=== PATIENT | female | born 1960 | race Caucasian/White ===

== ENCOUNTER 2019-05-10 09:22 | Emergency (ER) | payer OTHER, SELFPAY ==
[2019-05-10 09:36] VITALS: BP 125/101; PULSE 92; RESP 16; TEMP 37.2; O2SAT 99
[2019-05-10 09:38] VITALS: O2SAT 99
--- NOTE | 2019-05-10 09:56 | ED.GENADULT ---
HPI - General Adult General Chief complaint: Upper Respiratory Infection <Ambrose Bailey PA-C - Last Filed: 05/10/19 10:10> Stated complaint: swelling to right face <Ambrose Bailey PA-C - Last Filed: 05/10/19 10:10> Time Seen by Provider: 05/10/19 09:31 <JOSE DE JESUS Escobar Last Filed: 05/10/19 10:10> Source: patient <JOSE DE JESUS Escobar Last Filed: 05/10/19 10:10> Mode of arrival: ambulatory <Ambrose Bailey PA-C - Last Filed: 05/10/19 10:10> Limitations: no limitations <Ambrose Bailey PA-C - Last Filed: 05/10/19 10:10> History of Present Illness HPI narrative: Patient is a 59-year-old female who presents to emergency department for evaluation of right-sided facial swelling that began yesterday around the right patient notes she has had congestion rhinorrhea also had a right upper Come off to 1 of her molars that she pushed back into place. Patient denies any fever chills nausea vomiting dyspnea patient has not been seen for her complaint. <Ambrose Bailey PA-C - Last Filed: 05/10/19 10:10> Related Data Home medications: Home Medications Medication Instructions Recorded Confirmed oxybutynin chloride 10 mg 10 mg PO DAILY 02/08/19 tablet,extended release 24 hr <Ambrose Bailey PA-C - Last Filed: 05/10/19 10:10> Allergies/adverse reactions: Allergies Allergy/AdvReac Type Severity Reaction Status Date / Time amoxicillin Allergy Unknown Verified 11/09/18 17:21 tramadol Allergy Unknown Verified 11/09/18 17:21 <Ambrose Bailey PA-C - Last Filed: 05/10/19 10:10> Review of Systems Review of Systems: All systems reviewed & are unremarkable except as noted in HPI and below <Ambrose Bailey PA-C - Last Filed: 05/10/19 10:10> PMFSH Family History Family History: Family History Mother Hypertension Cerebrovascular accident Family history of anemia Family history of hyperthyroidism Mother Patient's mother is , Onset Age: 85 Father Patient's father is , Onset Age: 72 <Ambrose Bailey PA-C - Last Filed: 05/10/19 10:10> Social History Social History: Social History Smoking status: Never smoker Smoking end date: 03/09/99 Alcohol intake: current Gender identity (if verbalized by the patient): Female <Ambrose Bailey PA-C - Last Filed: 05/10/19 10:10> Exam Narrative: Exam Narrative: GENERAL: Well-appearing, well-nourished, and in no acute distress. HEAD: Normocephalic, atraumatic. Slight swelling around the right consistent with edema there is no erythema or other findings consistent with cellulitis EYES: PERRLA and EOMI. ENT: Nares clear, no rhinorrhea or epistaxis. Mucous membranes moist. CHEST: Clear to auscultation. No respiratory distress. No wheezes rales or rhonchi HEART: Regular rate and rhythm. No murmur heard. Normal peripheral pulses. ABDOMEN: Soft, nontender, nondistended EXTREMITIES: Normal range of motion. No edema. SKIN: Warm, dry, no rash. NEURO: No focal deficits. Alert and oriented x3. Cranial nerves II through XII grossly intact PSYCH: Normal mood and affect. <Ambrose Bailey PA-C - Last Filed: 05/10/19 10:10> Course Course Emergency Course: Patient in the room in no distress aware of case findings treatment plan and diagnosis agreeing to follow-up as directed <Ambrose Bailey PA-C - Last Filed: 05/10/19 10:10> Vital Signs Vital signs: Vital Signs Temperature 37.2 C 05/10/19 09:36 Pulse Rate 92 05/10/19 09:36 Respiratory Rate 16 05/10/19 09:36 Blood Pressure 125/101 H 05/10/19 09:36 Pulse Oximetry 99 05/10/19 09:36 Temperature 37.2 C 05/10/19 09:36 Pulse Rate 85 05/10/19 10:33 Respiratory Rate 16 05/10/19 10:33 Blood Pressure 121/98 H 05/10/19 10:33 Pulse Oximetry 99 0
[2019-05-10 10:33] VITALS: BP 121/98; PULSE 85; RESP 16; O2SAT 99
== END 2019-05-10 10:34 | disposition home or self-care (01) ==
PROVIDERS: Emergency Provider Emergency Medicine; PCP Emergency Medicine
DX: R22.0 Localized swelling, mass and lump, head (principal)
CPT/HCPCS: 99283

== ENCOUNTER 2019-07-14 07:51 | Outpatient (CLI) | payer OTHER, SELFPAY ==
--- NOTE | ~2019-07-14 | MM_ITS ---
EXAMINATION: MM screening memo BI w mat HISTORY: Screening mammogram TECHNIQUE: Craniocaudal and mediolateral oblique 3-D tomosynthesis images were obtained and synthetic 2-D images were generated. CAD analysis was submitted and interpreted. COMPARISON: Comparison to multiple prior studies sequentially, with oldest reviewed study dated 05/2011. BREAST PARENCHYMAL COMPOSITION: The breasts are heterogeneously dense, which may obscure small masses . FINDINGS: There is no evidence of suspicious mass, calcification, or architectural distortion to sugg est malignancy in either breast. There has been no suspicious interval change. IMPRESSION: 1. No mammographic evidence of malignancy. 2. Recommend routine screening mammography in one year. BI-RADS Category 1: Negative. Reviewed, dictated and finalized at location A.
== END 2019-07-14 07:52 | disposition home or self-care (01) ==
PROVIDERS: PCP Emergency Medicine; Visit Provider Nurse Practitioner Obstetrics & Gynecology
DX: Z12.31 Encounter for screening mammogram for malignant neoplasm of breast (principal)
CPT/HCPCS: 77063; 77067

== ENCOUNTER 2019-10-29 15:14 | Emergency (ER) | payer OTHER, SELFPAY ==
[2019-10-29 15:42] VITALS: BP 129/66; PULSE 74; RESP 18; TEMP 37.1; O2SAT 99
--- NOTE | 2019-10-29 16:04 | ED.ABDPAIN ---
HPI - Abdominal Pain General Chief Complaint: Abdominal Pain Stated Complaint: Stomach Pain Time Seen by Provider: 10/29/19 15:50 Source: patient and RN notes reviewed Mode of arrival: ambulatory Limitations: no limitations History of Present Illness HPI narrative: Patient presents today with a 2-day history of mid abdominal pain radiating up to the throat. Pain is worsened after eating, but decreases the longer the amount of time since she has last eaten. Normal bowel movement today. Occasional nausea with the pain, but denies vomiting or diarrhea. No fever or urinary symptoms. Patient has history of GERD in the past, but stopped taking Pepcid many years ago. She has started Pepcid again and states it has been helping with her symptoms for short periods of time. She currently rates her discomfort 1/10. Over the last 24 hours, patient has had several cups of coffee, corned beef hash, fried chicken, and other fried foods. She is also complaining of a 3-week history of right ear pain and ringing. Associated symptoms include postnasal drip and rhinorrhea. Denies cough, congestion. MD elicited complaint: abdominal pain Related Data Home Medications Medication Instructions Recorded Confirmed Iron 10/29/19 Probiotic 10/29/19 Allergies Allergy/AdvReac Type Severity Reaction Status Date / Time amoxicillin Allergy Unknown Verified 11/09/18 17:21 tramadol Allergy Unknown Verified 11/09/18 17:21 Review of Systems Review of Systems: Narrative: CONSTITUTIONAL: Denies body aches, fever, chills, or sweats. EYES: Denies visual changes, redness, or discharge. ENT: Denies congestion, sore throat. + Right ear pain and ringing, rhinorrhea, postnasal drip CARDIOVASCULAR: Denies chest pain, palpitations, or edema. RESPIRATORY: Denies cough or dyspnea. GASTROINTESTINAL: Denies vomiting, or diarrhea.+ Abdominal pain, nausea GENITOURINARY: Denies dysuria or hematuria. SKIN: Denies rash, itching, or wounds. MUSCULOSKELETAL: Denies back pain, joint pain, or myalgia. NEUROLOGIC: Denies headache, numbness, tingling, or weakness. PSYCH: Denies depression or anxiety. [facility] Past Medical History Medical History (Updated 10/29/19 @ 16:11 by Belkis Belcher, [employer], ) Cervical spondylosis Depression HLD (hyperlipidemia) Urinary incontinence Surgical History Surgical History (Updated 10/29/19 @ 16:11 by Belkis Belcher, [facility], ) History of cholecystectomy Social History Social History Smoking status: Never smoker Smoking end date: 03/09/99 Alcohol intake: current Gender identity (if verbalized by the patient): Female Comments At time of signature, I have reviewed and agree with nursing past medical, surgical, social and family history unless otherwise noted. Please see nursing chart for further information. There is no relevant family history pertinent to the presenting complaint Exam Narrative: Exam Narrative: GENERAL: Well-appearing, well-nourished, and in no acute distress. HEAD: Normocephalic, atraumatic. EYES: EOMI. No redness or drainage. Conjunctivae normal. ENT: Mucous membranes pink and moist. Nares clear. No rhinorrhea. TMs normal bilaterally. Small amount of fluid behind the right eardrum without indication of infection. Throat normal. Uvula midline. NECK: Normal AROM. Supple. No lymphadenopathy. CHEST: No respiratory distress. Clear to auscultation. HEART: Regular rate and rhythm. No murmur appreciated. Normal peripheral pulses. ABDOMEN: Soft, nontender, nondistended, normal active bowel sounds. -CVAT EXTREMITIES: Normal range of motion. No edema. SKIN: Warm, dry, no rash. Capillary refill normal. Normal skin turgor. NEURO: No focal deficits. Alert and oriented x3. Gait steady. PSYCH: Normal affect. No signs of depression or anxiety. Course Vital Signs Vital signs: Vital Signs Temperature 98.8 F 10/29/19 15:42 Pulse Rate 74
== END 2019-10-29 16:08 | disposition home or self-care (01) ==
PROVIDERS: Emergency Provider Nurse Practitioner; PCP Emergency Medicine
DX: K21.9 Gastro-esophageal reflux disease without esophagitis (principal); H69.91 Unspecified Eustachian tube disorder, right ear; M47.812 Spondylosis without myelopathy or radiculopathy, cervical region; E78.5 Hyperlipidemia, unspecified; F32.9 Major depressive disorder, single episode, unspecified
CPT/HCPCS: 99211; G0463

== ENCOUNTER 2020-08-31 09:25 | Outpatient (CLI) | payer OTHER, SELFPAY ==
--- NOTE | ~2020-08-31 | MM_ITS ---
EXAMINATION: MM screening memo BI w mat HISTORY: Screening mammogram TECHNIQUE: Craniocaudal and mediolateral oblique 3-D tomosynthesis images were obtained and synthetic 2-D images were generated. CAD analysis was submitted and interpreted. COMPARISON: 07/14/2019, 06/08/2018, 02/05/2016 bilateral digital screening mammogram examinations BREAST PARENCHYMAL COMPOSITION: The breasts are heterogeneously dense, which may obscure small masses . FINDINGS: There is no evidence of suspicious mass, calcification, or architectural distortion to sugg est malignancy in either breast. There has been no suspicious interval change. IMPRESSION: 1. No mammographic evidence of malignancy. 2. Recommend routine screening mammography in one year. BI-RADS Category 1: Negative Reviewed, dictated and finalized at location A.
== END 2020-08-31 09:26 | disposition home or self-care (01) ==
LOC: ANHIMG 09:29
PROVIDERS: PCP Emergency Medicine; Visit Provider Nurse Practitioner Obstetrics & Gynecology
DX: Z12.31 Encounter for screening mammogram for malignant neoplasm of breast (principal)
CPT/HCPCS: 77063; 77067

== ENCOUNTER 2021-03-13 15:37 | Outpatient (CLI) | payer OTHER, SELFPAY ==
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
== END 2021-03-13 15:38 | disposition home or self-care (01) ==
LOC: ANHIMG 15:45
PROVIDERS: PCP Emergency Medicine; Visit Provider Emergency Medicine
DX: M81.0 Age-related osteoporosis without current pathological fracture (principal); M47.896 Other spondylosis, lumbar region
CPT/HCPCS: 72100

== ENCOUNTER 2021-07-03 08:50 | Outpatient (CLI) | payer OTHER, SELFPAY ==
--- NOTE | ~2021-07-03 | DEXA_ITS ---
Bone Density Report Name: RAFFY TERAN Age: 61 Sex: Female Ethnicity: White Date of : 1960 Indication: postmenopausal; screening for osteoporosis; hysterectomy; Referring Provider: CORINNE BHATIA Study: Bone densitometry was performed. Exam Date: July 03, 2021 Accession number: [id number] Bone Density: Region BMD T-score Z-score Classification AP Spine(L1-L4) 1.035 -0.1 1.5 Normal Femoral Neck (Left) 0.558 -2.6 -1.2 Osteoporosis Total Hip (Left) 0.698 -2.0 -0.9 Osteopenia World Health Organization criteria for BMD impression classify patients as: Normal (T-score at or above -1.0), Osteopenia (T-score between -1.0 and -2.5), or Osteoporosis (T-score at or below -2.5). 10-year Fracture Risk: FRAX not reported because: Some T-score for Spine Total or Hip Total or Femoral Neck at or below -2.5 Clinical Information Provided by Patient: Has used the following medications: Calcium Has the following medical conditions: Hysterectomy Patient maximum height was 62 Menopause Age: 48 Drinks caffeinated beverages Onset of menses at age 12 Number of children 3 Impression: The patient has osteoporosis, based on the Left Femoral Neck T-score. Discussion: INCREASED RISK OF FRACTURE. BONE DENSITY IS UNDESIRABLY LOW AT ONE OR MORE SKELETAL SITES, CONSISTENT WITH POSTMENOPAUSAL OSTEOPOROSIS. This patient's lowest T-score meets the World Health Organization's (WHO) criteria for osteoporosis at one or more sites (T-score -2.5 or below). In untreated patients, the risk of osteoporotic fracture increases approximately two-fold for each 1.0 SD decrease in T-score. Low bone density is not the only risk factor for fracture; also consider factors such as patient's age, frailty or poor health, risk of falling, risk of injury, previous osteoporotic fracture, family history of osteoporosis, cigarette smoking, low body weight, etc. Not everyone with low bone mineral density has osteoporosis; osteomalacia and other metabolic bone disorders should also be considered. Patients who have osteoporosis should be evaluated for specific diseases and conditions (secondary causes) that may cause or contribute to bone loss. The [place] Association [employer] Clinical Endocrinologists (AACE) and National Osteoporosis Foundation (NOF) recommend pharmacologic intervention for all postmenopausal women whose T-score is in this range. The patient should follow a healthful lifestyle (good nutrition with adequate calcium and vitamin D, and appropriate weight-bearing exercise). Follow-Up: Consider a repeat BMD and Vertebral Fracture Assessment (VFA) exam in 2 years or sooner if medically necessary, to reassess this patient's status. Reported by: LAUREEN on 07/03/2021 11:39:00 AM. Reviewed, dictated and finalized at location ASuki CHAUDHARI
== END 2021-07-03 08:51 | disposition home or self-care (01) ==
LOC: ANHIMG 08:52
PROVIDERS: PCP Emergency Medicine; Visit Provider Emergency Medicine
DX: N95.1 Menopausal and female climacteric states (principal); M81.0 Age-related osteoporosis without current pathological fracture; M85.852 Other specified disorders of bone density and structure, left thigh
CPT/HCPCS: 77080

== ENCOUNTER 2021-08-27 13:26 | Outpatient (CLI) | payer OTHER, SELFPAY ==
--- NOTE | ~2021-08-27 | XR_ITS ---
EXAMINATION: XR chest 2V Exam Date/Time: 08/27/2021 13:35 CDT HISTORY: R05.8 - central chest pain and upper back pain, cough Comparison: X-ray chest 10/28/2018. RESULT: Lines, tubes, and devices: None. Lungs and pleura: Clear. Cardiomediastinal silhouette: Stable cardiomediastinal silhouette. Other: No acute osseous or upper abdominal finding. Right upper quadrant calcifications may represen t cholelithiasis or right nephrolithiasis. IMPRESSION: No acute cardiopulmonary process. Cholelithiasis versus right nephrolithiasis. Reviewed, dictated and finalized at location K.
== END 2021-08-27 13:27 | disposition home or self-care (01) ==
PROVIDERS: PCP Emergency Medicine; Visit Provider Emergency Medicine
DX: R05.8 Other specified cough (principal)
CPT/HCPCS: 71046

== ENCOUNTER → 2021-09-12 10:24 | Outpatient (CLI) | payer OTHER, SELFPAY ==
--- NOTE | ~2021-09-12 | US_ITS ---
US renal BI 09/12/2021 11:14 Procedure: Realtime transabdominal ultrasound of the kidneys and bladder. Indication: Renal stones Comparison: CT dated 02/27/2015 Findings: Right renal echotexture is normal without focal mass or hydronephrosis. No stones identifie d. In the right kidney there is a 3 x 2.2 x 1.9 cm oval hypoechoic mass without significant posterior acoustic enhancement. The right kidney measures 10.7 cm and left kidney measures 10.3 cm. Bladder w ithin normal limits. Impression: 1: Oval hypoechoic left renal mass measuring 3 cm. This is not compatible with a simple cyst. Correla tion with contrast-enhanced MRI recommended to exclude enhancement. Reviewed, dictated and finalized at location A. Impression: 1: Oval hypoechoic left renal mass measuring 3 cm. This is not compatible with a simple cyst. Correlation with contrast-enhanced MRI recommended to exclude en hancement.
== END ==
PROVIDERS: PCP Emergency Medicine; Visit Provider Emergency Medicine
DX: N20.0 Calculus of kidney (principal)
CPT/HCPCS: 76775

== ENCOUNTER → 2021-10-04 09:57 | Outpatient (CLI) | payer SELFPAY ==
--- NOTE | ~2021-10-04 | MR_ITS ---
EXAMINATION: MR abdomen wo/w con INDICATION: Kidney mass TECHNIQUE: Coronal SSFSE ARC, WATER:coronal LAVA-FLEX, Coronal 2D FIESTA FatSat, Axial SSFSE BH ARC, Axial 3D DualEcho BH, Axial SSFSE-IR, Axial DWI b=500, Axial 2D FIESTA FatSat, pre and postcontrast A xial LAVA ARC, postcontrast Coronal In and Opposed phase LAVA FLEX COMPARISON: Ultrasound, 09/13/2011 CONTRAST: None FINDINGS: The gallbladder is surgically absent. There is mild enlargement of the common bile duct and central intrahepatic ducts which is likely due to post cholecystectomy state. There is a 1.7 cm cyst of the liver. Pancreas divisum is noted. The spleen and adrenal glands are normal. Cysts of the kidn eys measure up to 4 mm on the right. No suspicious left kidney mass is identified. There are no patho logically enlarged abdominal lymph nodes. No dilated loops of bowel are evident. IMPRESSION: 1. No suspicious kidney mass identified. Reviewed, dictated and finalized at location L.
--- NOTE | ~2021-10-04 | MR_ITS ---
EXAMINATION: MR pelvis wo/w con INDICATION: Kidney mass TECHNIQUE: Coronal SSFSE ARC, WATER:coronal LAVA-FLEX, Coronal 2D FIESTA FatSat, Axial SSFSE BH ARC, Axial 3D DualEcho BH, Axial SSFSE-IR, Axial DWI b=500, Axial 2D FIESTA FatSat, postcontrast Axial LAV A ARC, postcontrast Coronal In and Opposed phase LAVA FLEX COMPARISON: 02/07/2015 CONTRAST: Multihance, 11 cc FINDINGS: There are no pathologically enlarged pelvic lymph nodes. No dilated loops of bowel are evid ent. There is no free fluid in the pelvis. Changes of left hip arthroplasty are noted. No abnormal en hancement is identified after contrast administration. There are changes of hysterectomy. IMPRESSION: 1. Unremarkable pelvic MRI. Reviewed, dictated and finalized at location L. IMPRESSION: 1. Unremarkable pelvic MRI.
[2021-10-10 11:11] LABS: Estimated Glomerular Filt Rate > 60
== END ==
PROVIDERS: PCP Emergency Medicine; Visit Provider Emergency Medicine
DX: N28.89 Other specified disorders of kidney and ureter (principal)
CPT/HCPCS: 36415; 72197; 74183; 82565; A9577

== ENCOUNTER 2021-10-23 14:46 | Outpatient (CLI) | payer OTHER, SELFPAY ==
--- NOTE | ~2021-10-23 | MM_ITS ---
EXAMINATION: MM screening memo BI w mat HISTORY: Screening mammogram TECHNIQUE: Craniocaudal and mediolateral oblique 3-D tomosynthesis images were obtained and synthetic 2-D images were generated. CAD analysis was submitted and interpreted. COMPARISON: 08/31/2020, 07/14/2019, 06/08/2018 bilateral screening mammogram examinations BREAST PARENCHYMAL COMPOSITION: The breasts are heterogeneously dense, which may obscure small masses . FINDINGS: There is no evidence of suspicious mass, calcification, or architectural distortion to sugg est malignancy in either breast. There has been no suspicious interval change. IMPRESSION: 1. No mammographic evidence of malignancy. 2. Recommend routine screening mammography in one year. BI-RADS Category 1: Negative Reviewed, dictated and finalized at location A.
== END 2021-10-23 14:47 | disposition home or self-care (01) ==
PROVIDERS: PCP Emergency Medicine; Visit Provider Nurse Practitioner
DX: Z12.31 Encounter for screening mammogram for malignant neoplasm of breast (principal)
CPT/HCPCS: 77063; 77067

== ENCOUNTER 2022-09-18 09:10 | Emergency (ER) | payer OTHER, SELFPAY ==
--- NOTE | 2022-09-18 09:11 | ED.URI ---
HPI - URI/Sore Throat General Chief Complaint: Upper Respiratory Infection Stated Complaint: Sore Throat/Cough/Fever Time Seen by Provider: 09/18/22 09:11 Source: patient Mode of arrival: ambulatory Limitations: no limitations History of Present Illness HPI Narrative: Patient is a 62-year-old female who presents with fever, sore throat, congestion and productive cough after visiting her friend's mother on Thursday. States her chest wall hurts when she coughs. Patient states every time she goes over there she gets sick. States she did have an episode of emesis last night. Reports she has seasonal allergies and has been taking benadryl. Patient states the the conditions are poor with mice infestation and the dogs have fleas. Also reports they smoke inside the house. Patient is tearful. Currently on Clindamycin for dental abscess, started on Thursday. Has also taken some OTC cold and sinus medication. Has not taken any ibuprofen or tylenol for pain or fever. Related Data Home Medications Medication Instructions Recorded Confirmed Iron See Rx Instructions .Route .COMPLEX 11/22/19 09/18/22 clindamycin HCl 300 mg capsule 300 mg DIRECTED 09/18/22 09/18/22 Allergies Allergy/AdvReac Type Severity Reaction Status Date / Time amoxicillin Allergy Unknown unknown Verified 04/02/22 15:48 tramadol Allergy Unknown unknown Verified 04/02/22 15:48 Review of Systems Review of Systems: All systems reviewed & are unremarkable except as noted in HPI and below Constitutional: Constitutional: Denies body ache(s), Reports fever(s), Denies headache(s), Denies malaise and Denies weakness Eyes: Eyes: Denies loss of vision ENT: Denies otalgia, Denies headache(s), Reports nasal congestion, Denies sinus pain and Reports sore throat Cardiovascular: Cardiovascular: Denies chest pain, Denies irregular heart rhythm and Denies dyspnea Respiratory: Respiratory: Reports cough and Denies dyspnea Gastrointestinal: Gastrointestinal: Denies abdominal pain, Denies melena, Denies hematochezia, Denies diarrhea, Denies nausea and Denies vomiting Musculoskeletal: Musculoskeletal: Denies back pain, Denies myalgias and Denies arthralgias Integumentary/Breasts: Skin/Breast: Denies pruritus and Denies rash Neurologic: Denies headache(s), Denies loss of vision and Denies weakness Psychiatric: Psychiatric: Reports no additional psychiatric complaints PMFSH Past Medical History Medical History Cervical spondylosis Depression HLD (hyperlipidemia) Urinary incontinence Surgical History Surgical History History of cholecystectomy Family History Family History Mother Hypertension Cerebrovascular accident Family history of anemia Family history of hyperthyroidism Mother Patient's mother is , Onset Age: 85 Father Patient's father is , Onset Age: 72 Social History Social History Smoking status: Never smoker Smoking end date: 03/09/99 Alcohol intake: current Gender identity (if verbalized by the patient): Female Comments At time of signature, agree with nursing past medical, surgical, social and family history. There is no relevant family history pertinent to the presenting complaint. Exam Const: General: cooperative, healthy appearing, comfortable, no acute distress and well nourished Nutritional Appearance: well nourished Orientation/consciousness: patient oriented x3 Limitations: no limitations HENMT: Head: normal to inspection, normocephalic and atraumatic Ears: hearing grossly normal bilaterally, external ears normal, TM's normal bilaterally and EAC's normal Face/Nose/Sinus: Normal external nose present, Normal nares present, Normal nasal mucous membranes and turbinates present
[2022-09-18 09:30] VITALS: BP 162/89; PULSE 84; RESP 16; TEMP 36.7; O2SAT 100
== END 2022-09-18 10:04 | disposition home or self-care (01) ==
PROVIDERS: Emergency Provider Nurse Practitioner Family; PCP Emergency Medicine
DX: J02.0 Streptococcal pharyngitis (principal); Z20.822 Contact with and (suspected) exposure to COVID-19; Z87.891 Personal history of nicotine dependence; E78.5 Hyperlipidemia, unspecified
CPT/HCPCS: 87426; 87804; 87880; 99213; C9803; G0463

== ENCOUNTER 2022-09-26 09:17 | Emergency (ER) | payer OTHER, SELFPAY ==
[2022-09-26 09:33] VITALS: BP 150/96; PULSE 85; RESP 14; TEMP 36.5; O2SAT 99
--- NOTE | 2022-09-26 09:54 | ED.URI ---
HPI - URI/Sore Throat General Chief Complaint: Upper Respiratory Infection Stated Complaint: Sore Throat/Cough Time Seen by Provider: 09/26/22 09:38 Source: patient, RN notes reviewed and old records reviewed Mode of arrival: ambulatory Limitations: no limitations History of Present Illness HPI Narrative: Patient presents today complaining of nausea, cough, hoarse voice, sore throat, fatigue, occasional shortness of breath. She was seen at [facility] on 09/18/2022, diagnosed with strep throat and placed on clindamycin. At that time she was already on a 7 day course of clindamycin for dental issue, so her prescription was extended for 3 days to equal a full 10 day course. Patient states her symptoms had improved, but worsened again when she was off the medication. She has been using albuterol inhaler, Benadryl, cough medicine with mild relief and currently rates her pain 2/10. Denies history of asthma or COPD. Related Data Home Medications Medication Instructions Recorded Confirmed Iron See Rx Instructions .Route .COMPLEX 11/22/19 09/26/22 Allergies Allergy/AdvReac Type Severity Reaction Status Date / Time amoxicillin Allergy Mild Itching Verified 09/26/22 09:54 tramadol Allergy Unknown unknown Verified 04/02/22 15:48 Review of Systems Review of Systems: CONSTITUTIONAL: Denies body aches, fever, chills, or sweats.+ fatigue EYES: Denies visual changes, redness, or discharge. ENT: Denies rhinorrhea, congestion, or otalgia.+ course, sore throat CARDIOVASCULAR: Denies chest pain, palpitations, or edema. RESPIRATORY: + cough, occasional shortness of breath GASTROINTESTINAL: Denies abdominal pain, vomiting, or diarrhea.+ nausea GENITOURINARY: Denies dysuria or hematuria. SKIN: Denies rash, itching, or wounds. MUSCULOSKELETAL: Denies back pain, joint pain, or myalgia. NEUROLOGIC: Denies headache, numbness, tingling, or weakness. PSYCH: Denies depression or anxiety. [facility] Past Medical History Medical History Cervical spondylosis Depression HLD (hyperlipidemia) Urinary incontinence Surgical History Surgical History History of cholecystectomy Family History Family History Mother Hypertension Cerebrovascular accident Family history of anemia Family history of hyperthyroidism Mother Patient's mother is , Onset Age: 85 Father Patient's father is , Onset Age: 72 Social History Social History Smoking status: Never smoker Smoking end date: 03/09/99 Alcohol intake: current Gender identity (if verbalized by the patient): Female Comments At time of signature, I have reviewed and agree with nursing past medical, surgical, social and family history unless otherwise noted. Please see nursing chart for further information. There is no relevant family history pertinent to the presenting complaint Exam Narrative: GENERAL: Well-appearing, well-nourished, and in no acute distress. HEAD: Normocephalic, atraumatic. EYES: EOMI. No redness or drainage. Conjunctivae normal. ENT: Mucous membranes pink and moist. Nares clear. No rhinorrhea. TMs normal bilaterally. Throat normal. Uvula midline. NECK: Normal AROM. Supple. Left anterior cervical chain lymphadenopathy. CHEST: No respiratory distress. Clear to auscultation. HEART: Regular rate and rhythm. No murmur appreciated. Normal peripheral pulses. EXTREMITIES: Normal range of motion. No edema. SKIN: Warm, dry, no rash. Capillary refill normal. Normal skin turgor. NEURO: No focal deficits. Alert and oriented x3. Gait steady. PSYCH: Normal affect. No signs of depression or anxiety. Course Course Level of Care: Express Care Visit Vital Signs Vital signs: Vital
== END 2022-09-26 10:15 | disposition home or self-care (01) ==
PROVIDERS: Emergency Provider Nurse Practitioner
DX: J02.0 Streptococcal pharyngitis (principal); E78.5 Hyperlipidemia, unspecified; M47.812 Spondylosis without myelopathy or radiculopathy, cervical region
CPT/HCPCS: 87880; 99213; G0463

== ENCOUNTER 2022-10-24 11:11 | Outpatient (CLI) | payer OTHER, SELFPAY ==
--- NOTE | ~2022-10-24 | XR_ITS ---
EXAMINATION: XR lumbar spine 2-3V DATE: 10/24/2022 11:43 INDICATION: Low back pain TECHNIQUE: Anteroposterior and lateral views of the lumbar spine, and cone-down lateral view of the l umbosacral junction were obtained. COMPARISON: 03/13/2021 FINDINGS: Bone alignment is normal. There is no fracture. The vertebral body heights are maintained. There is moderate loss of intervertebral disc space height at T12-L1, L3-4, and L5-S1. There is moder ate to severe loss of intervertebral disc space height at L2-3. Small degenerative osteophytes projec t from the anterior endplates of multiple vertebral bodies. There is moderate facet joint osteoarthri tis of the lower lumbar spine. There are partially imaged changes of right total hip arthroplasty. IMPRESSION: 1. Moderate lumbar spondylosis without acute findings or significant interval change. Reviewed, dictated and finalized at location B. IMPRESSION: 1. Moderate lumbar spondylosis without acute findings or significant interval c christopher.
--- NOTE | ~2022-10-24 | XR_ITS ---
EXAMINATION: XR hip RT min 2V DATE: 10/24/2022 11:43 INDICATION: Right hip pain TECHNIQUE: Two views of right hip were obtained. COMPARISON: 11/04/2016 FINDINGS: There are changes of interval right total hip arthroplasty. Alignment is normal. There is n o fracture. There are phleboliths of the pelvis. IMPRESSION: 1. Changes of interval right total hip arthroplasty without acute osseous abnormality. Reviewed, dictated and finalized at location B. IMPRESSION: 1. Changes of interval right total hip arthroplasty without acute osseous abnor mality.
== END 2022-10-24 11:12 | disposition home or self-care (01) ==
PROVIDERS: PCP Emergency Medicine; Visit Provider Emergency Medicine
DX: M25.551 Pain in right hip (principal); M47.896 Other spondylosis, lumbar region
CPT/HCPCS: 72100; 73502

== ENCOUNTER 2023-01-07 11:19 | Emergency (ER) | payer OTHER, SELFPAY ==
[2023-01-07 11:23] VITALS: BP 138/70; PULSE 60; RESP 18; TEMP 36.7; O2SAT 100
[2023-01-07] MEDS: KETOROLAC (*BKC) 60 MG/2 ML VIAL IM (12:27)
[2023-01-07] MEDS: ONDANSETRON HCL ODT 4 MG TABLET PO (12:27)
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
[2023-01-07 13:13] VITALS: BP 145/84; PULSE 65; RESP 18; O2SAT 100
== END 2023-01-07 13:37 | disposition home or self-care (01) ==
PROVIDERS: Emergency Provider Emergency Medicine; PCP Emergency Medicine
DX: S06.0X0A Concussion without loss of consciousness, initial encounter (principal); S16.1XXA Strain of muscle, fascia and tendon at neck level, initial encounter; E78.5 Hyperlipidemia, unspecified; M47.812 Spondylosis without myelopathy or radiculopathy, cervical region; R32 Unspecified urinary incontinence; Z96.641 Presence of right artificial hip joint; Z90.49 Acquired absence of other specified parts of digestive tract; W20.8XXA Other cause of strike by thrown, projected or falling object, initial encounter
CPT/HCPCS: 96372; 99283; A9270; J1885

== ENCOUNTER 2023-06-04 09:00 | Outpatient (CLI) | payer OTHER, SELFPAY ==
--- NOTE | ~2023-06-04 | MM_ITS ---
EXAMINATION: MM screening memo BI w mat HISTORY: Screening mammogram TECHNIQUE: Craniocaudal and mediolateral oblique 3-D tomosynthesis images were obtained and synthetic 2-D images were generated. CAD analysis was submitted and interpreted. COMPARISON: 10/23/2021, 08/31/2020 bilateral screening mammogram examinations BREAST PARENCHYMAL COMPOSITION: The breasts are heterogeneously dense, which may obscure small masses . FINDINGS: There is no evidence of suspicious mass, calcification, or architectural distortion to sugg est malignancy in either breast. There has been no suspicious interval change. IMPRESSION: 1. No mammographic evidence of malignancy. 2. Recommend routine screening mammography in one year. BI-RADS Category 1: Negative Reviewed, dictated and finalized at location A.
== END 2023-06-04 09:01 | disposition home or self-care (01) ==
PROVIDERS: PCP Emergency Medicine; Visit Provider Nurse Practitioner
DX: Z12.31 Encounter for screening mammogram for malignant neoplasm of breast (principal)
CPT/HCPCS: 77063; 77067

== ENCOUNTER 2023-06-14 08:32 | Outpatient (CLI) | payer OTHER, SELFPAY ==
--- NOTE | ~2023-06-14 | MR_ITS ---
MRI of the lumbar spine Clinical History: Back pain Technique: Axial T2-weighted images, and sagittal T1-weighted, T2-weighted, and and T2 fat-sat images were acquired. Findings: There is no fracture or subluxation of the lumbar spine. Vertebral bodies maintain normal a lignment. No suspicious bone marrow signal abnormality seen. There are Schmorl's nodes about the T12- L1 disc space. There is intraosseous hemangioma of L3. At L1-L2, there is minimal disc bulge and mild facet arthropathy. No central canal stenosis. There is mild bilateral neural foraminal narrowing. At L2-L3, there is moderate to advanced degenerative disc narrowing. There is disc bulge and moderate facet arthropathy, with minimal central canal stenosis. There is mild right neural foraminal narrowi ng. Left neural foramen preserved. At L3-L4, there is mild degenerative disc narrowing. Disc bulge and facet arthropathy result in mild central canal stenosis. There is minimal bilateral neural foraminal narrowing. At L4-L5, disc bulge and severe facet arthropathy result in severe spinal canal stenosis/thecal sac c ompression. There is moderate to severe left neural foraminal narrowing, and minimal right neural for aminal narrowing. At L5-S1, there is minimal disc bulge with severe facet arthropathy. No central canal stenosis. Neura l foramina are preserved. Paravertebral soft tissues are unremarkable. Impression: Severe degenerative spondylosis at L4-L5, as detailed above. Moderate degenerative change otherwise, as above. Reviewed, dictated and finalized at [facility]. Impression: Severe degenerative spondylosis at L4-L5, as detailed above. Moderate degenerative change otherwise, as above.
== END 2023-06-14 08:33 | disposition home or self-care (01) ==
PROVIDERS: PCP Emergency Medicine; Visit Provider Emergency Medicine
DX: M47.896 Other spondylosis, lumbar region (principal)
CPT/HCPCS: 72148

== ENCOUNTER 2023-07-01 10:47 | Emergency (ER) | payer OTHER, SELFPAY ==
--- NOTE | ~2023-07-01 | XR_ITS ---
EXAMINATION: XR chest 2V 07/01/2023 11:25 INDICATION: Chest pain and weakness PROCEDURE: 2 view chest COMPARISON: 08/27/2021 FINDINGS: The lungs are clear. The cardiomediastinal silhouette is within normal limits. There are no pleural effusions. There is no pneumothorax suspected. IMPRESSION: 1: NO ACUTE CARDIOPULMONARY DISEASE. Reviewed, dictated and finalized at location B.
--- NOTE | 2023-07-01 10:48 | ECG_ITS ---
SEE SCANNED COPY FOR CONFIRMED REPORT MTDD
[2023-07-01 11:16] LABS: Basophils Percent Auto 0.7 % (0.2-1.2); Eosinophils Absolute Auto 0.2 K/mm3 (0-0.3); Eosinophils Percent Auto 2.6 % (0-4.4); Hematocrit 41.1 % (37.0-47.0); Hemoglobin 13.2 g/dL (12.0-15.0); Immature Granulocyte Absolute 0.02 K/mm3 (0.00-0.031); Immature Granulocyte Percent A 0.3 % (0-0.5); Lymphocytes Absolute Auto 1.99 K/mm3 (0.9-3.2); Lymphocytes Percent Auto 33.8 % (18.3-44.2); Mean Corpuscular HGB Conc 32.1 g/dl (32-36); Mean Corpuscular Hemoglobin 30.2 pg (26-34); Mean Corpuscular Volume 94.1 fl (80-100); Mean Platelet Volume 9.7 fl (7.4-10.4); Monocytes Absolute Auto 0.5 K/mm3 (0.1-0.6); Monocytes Percent Auto 8.2 % (2.6-8.5); Neutrophils Absolute Auto 3.2 K/mm3 (1.3-6.7); Neutrophils Percent Auto 54.4 % (45.5-73.1); Platelet Count Result 353 k/mm3 (150-375); Red Blood Count 4.37 M/mm3 (4.2-5.4); Red Cell Distribution Width 12.6 % (11.5-14.5); White Blood Count 5.9 K/mm3 (4.5-10.0)
[2023-07-01 11:22] LABS: Partial Thromboplastin Time 25.4 Seconds (22.3-36.8)
[2023-07-01 11:31] LABS: Alanine Aminotransferase 23 U/L (6-35); Alkaline Phosphatase 88 U/L (38-126); Anion Gap 9 mmol/L (4-12); Aspartate Amino Transferase 29 U/L (14-36); Bilirubin,Total 0.5 mg/dL (0.2-1.3); Blood Urea Nitrogen 17 mg/dL (7-17); Calcium 11.5 mg/dL (8.4-10.2); Carbon Dioxide 22 mmol/L (22-30); Chloride 108 mmol/L (98-107); Estimated CRCL calculation 74 ml/min; Estimated Glomerular Filt Rate > 60; Glucose 112 mg/dL (65-110); Lipase 125 U/L (23-300); Sodium 139 mmol/L (137-145)
[2023-07-01 11:42] LABS: Troponin I < 0.012 ng/mL (0.000-0.034)
[2023-07-01 14:39] VITALS: BP 134/71; PULSE 74; RESP 16; O2SAT 100
--- NOTE | 2023-07-01 14:58 | ED.CHESTPAIN ---
HPI - Chest Pain General Chief Complaint: Chest Pain Stated Complaint: cp Time Seen by Provider: 07/01/23 14:58 History of Present Illness HPI narrative: This is a 63-year-old female with PMH of HLD, GERD, anxiety, depression presents to the ED with chief complaint of left-sided chest pain for the past couple of days. Patient reports that she had a fall 2 weeks ago in which she injured her upper back and left shoulder. Patient states that the pain primarily was located in between the shoulder blades and is worse with certain movements and positions. States the pain started to radiate from the shoulder into the chest for the past couple of days. Today she states she had an episode where she became sweaty and dizzy and shaky. Denies syncope, vomiting, nausea, fevers, chills, cough, dyspnea. Denies any exertional component to the pain. States the pain is specifically worse when she moves her left shoulder. Patient states she deals with chronic pain and no pain medications that she can take home helps with her pain. States she follows with pain management and has an appointment tomorrow. Denies any cardiac history. Denies history of blood clot. Denies recent immobilization or hospitalization. Denies leg swelling. Related Data Home Medications Medication Instructions Recorded Confirmed Iron See Rx Instructions .Route .COMPLEX 11/22/19 06/10/23 Allergies Allergy/AdvReac Type Severity Reaction Status Date / Time amoxicillin Allergy Mild Itching Verified 07/01/23 15:41 tramadol Allergy Unknown unknown Verified 07/01/23 15:41 Review of Systems Review of Systems: All systems as dictated in HPI [facility] Past Medical History Medical History Cervical spondylosis Depression HLD (hyperlipidemia) Urinary incontinence Surgical History Surgical History History of cholecystectomy History of right hip replacement Family History Family History Mother Hypertension Cerebrovascular accident Family history of anemia Family history of hyperthyroidism Mother Patient's mother is , Onset Age: 85 Father Patient's father is , Onset Age: 72 Social History Social History Smoking status: Never smoker Smoking end date: 03/09/99 Alcohol intake: current Do You Feel Safe in your Home?: Yes Lack of Transportation: No Lack of Food: Never True Current Housing: I Have Housing Concerned About Future Housing: No Difficulty Paying Gas/Electric Bills: No Difficulty Paying for Meds: No Currently Unemployed: No Education: High School Diploma/GED Difficulty w/ Childcare or Family Care: No Gender identity (if verbalized by the patient): Female Exam Narrative: GENERAL: Well-appearing, well-nourished, and in no acute distress. HEAD: Normocephalic, atraumatic. EYES: PERRLA and EOMI. ENT: Nares clear, no rhinorrhea or epistaxis. Mucous membranes moist. Oropharynx without tonsillar hypertrophy exudate or other lesions. NECK: Supple. No adenopathy or masses. CHEST: No respiratory distress. Clear to auscultation. No wheezes rales or rhonchi. Tender to palpation to the left chest in the pectoral distribution towards left shoulder. Chest pain is recreated with range of motion of the left shoulder. HEART: Regular rate and rhythm. No murmur heard. Normal peripheral pulses. ABDOMEN: Soft, nontender, nondistended, normal active bowel sounds. MSK: Normal range of motion. No edema. SKIN: Warm, dry, no rash. NEURO: Alert and oriented x3. No focal deficits. PSYCH: Normal mood and affect. Course Vital Signs Vital signs: Vital Signs Pulse Rate 74 07/01/23 14:39 Respiratory Rate 16 07/01/23 14:39 Blood Pressure 134/71 07/01/23 14:39 Pu
[2023-07-01 15:31] LABS: Troponin I 0.014 ng/mL (0.000-0.034)
[2023-07-01] MEDS: KETOROLAC 15 MG/ML VIAL (*BKC) IV PUSH (15:48)
[2023-07-01 16:02] VITALS: BP 155/84; PULSE 77; RESP 20; O2SAT 96
== END 2023-07-01 16:03 | disposition home or self-care (01) ==
PROVIDERS: Student in an Organized Health Care Education/Training Program; Emergency Provider Physician Assistant; PCP Emergency Medicine
DX: S29.011A Strain of muscle and tendon of front wall of thorax, initial encounter (principal); E78.5 Hyperlipidemia, unspecified; K21.9 Gastro-esophageal reflux disease without esophagitis; R32 Unspecified urinary incontinence; Z90.49 Acquired absence of other specified parts of digestive tract; Z96.641 Presence of right artificial hip joint; W19.XXXA Unspecified fall, initial encounter
CPT/HCPCS: 36415; 71046; 80053; 83690; 84484; 85025; 85610; 85730; 93005; 96374; 99284; J1885

== ENCOUNTER 2023-10-16 15:14 | Emergency (ER) | payer OTHER, SELFPAY ==
--- NOTE | 2023-10-16 15:24 | ED.URI ---
HPI - URI/Sore Throat General Chief Complaint: Upper Respiratory Infection Stated Complaint: Sore Throat Time Seen by Provider: 10/16/23 15:24 Source: patient, RN notes reviewed and old records reviewed Mode of arrival: ambulatory Limitations: no limitations History of Present Illness HPI Narrative: 63-year-old female presents to the [facility] with an irritated throat since Thursday, 3 days. Patient has not taken anything to help her symptoms. States that she traveled to a friend's house over the weekend and they smoked cigarettes indoors. Onset (ago): day(s) (3) Treatments prior to arrival: none Related Data Home Medications Medication Instructions Recorded Confirmed methocarbamol 750 mg tablet 750 mg PO DAILY 10/16/23 10/16/23 Allergies Allergy/AdvReac Type Severity Reaction Status Date / Time amoxicillin Allergy Mild Itching Verified 10/16/23 15:22 tramadol Allergy Mild Itching Verified 10/16/23 15:22 Review of Systems Review of Systems: All systems reviewed & are unremarkable except as noted in HPI and below Constitutional: Constitutional: Reports no additional constitutional complaints Eyes: Eyes: Reports no additional eye complaints ENT: Reports as per HPI Cardiovascular: Cardiovascular: Reports no additional cardiovascular complaints, Denies chest pain and Denies dyspnea Respiratory: Respiratory: Reports no additional respiratory complaints, Denies chest congestion, Denies cough and Denies dyspnea Gastrointestinal: Gastrointestinal: Reports no additional gastrointestinal complaints, Denies abdominal pain, Denies nausea and Denies vomiting Musculoskeletal: Musculoskeletal: Reports no additional musculoskeletal complaints Integumentary/Breasts: Skin/Breast: Reports system reviewed and no additional complaints, except as docu Neurologic: Reports system reviewed and no additional complaints, except as documented Psychiatric: Psychiatric: Reports no additional psychiatric complaints Allergic/Immunologic: Allergic/Immunologic: Reports no additional allergic/immunologic complaints [facility] Past Medical History Medical History Cervical spondylosis Chronic sinusitis Depression HLD (hyperlipidemia) Sinus congestion Urinary incontinence Surgical History Surgical History History of cholecystectomy History of right hip replacement Family History Family History Mother Hypertension Cerebrovascular accident Family history of anemia Family history of hyperthyroidism Mother Patient's mother is , Onset Age: 85 Father Patient's father is , Onset Age: 72 Social History Social History Smoking status: Never smoker Smoking end date: 03/09/99 Alcohol intake: current Do You Feel Safe in your Home?: Yes Lack of Transportation: No Lack of Food: Never True Current Housing: I Have Housing Concerned About Future Housing: No Difficulty Paying Gas/Electric Bills: No Difficulty Paying for Meds: No Currently Unemployed: No Education: High School Diploma/GED Difficulty w/ Childcare or Family Care: No Gender identity (if verbalized by the patient): Female Comments At the time of my signature, I reviewed and agree with the nursing past medical, surgical, social, and family history. There is no relevant family history pertinent to the patient complaint. Exam Const: General: cooperative, healthy appearing, comfortable, no acute distress, well developed, alert and well nourished Nutritional Appearance: well nourished Orientation/consciousness: patient oriented x3 Limitations: no limitations HENMT: Head: normal to inspection Ears: hearing grossly normal bilaterally, external ears normal, TM's normal bilaterally, EAC's normal, mas
[2023-10-16 15:25] VITALS: BP 102/68; PULSE 85; RESP 16; TEMP 37.1; O2SAT 98
[2023-10-16 15:54] LABS: EDSTREPNEGPOS1 Presumptive Negative
== END 2023-10-16 15:46 | disposition home or self-care (01) ==
PROVIDERS: Emergency Provider Nurse Practitioner; PCP Emergency Medicine
DX: J02.9 Acute pharyngitis, unspecified (principal); Z87.891 Personal history of nicotine dependence; E78.5 Hyperlipidemia, unspecified
CPT/HCPCS: 87081; 87880; 99213; G0463

== ENCOUNTER 2023-11-08 13:25 | Emergency (ER) | payer OTHER, SELFPAY ==
--- NOTE | ~2023-11-08 | XR_ITS ---
EXAMINATION: XR chest 2V DATE: 11/08/2023 14:09 INDICATION: Chest pain, shortness of breath and cough TECHNIQUE: PA and lateral views of the chest were obtained. COMPARISON: Chest radiograph dated 07/01/2023 FINDINGS: The lungs remain clear with no focal airspace opacities, pulmonary edema, pleural effusion or pneumot horax. The cardiomediastinal silhouette is normal. Mild thoracic spondylosis with chronic minimal ant erior wedging of a midthoracic vertebral body. IMPRESSION: 1. No acute cardiopulmonary disease. Reviewed, dictated and finalized at location A.
--- NOTE | 2023-11-08 13:27 | ECG_ITS ---
Test Date: 2023-11-08 13:31:34 Measurements Intervals [place] Rate: 81 P: 151 [place]: 123 QRS: 13 QRSD: 101 T: 150 QT: 346 QTc: 402 Interpretive Statements ECTOPIC ATRIAL RHYTHM POSSIBLE LEFT ATRIAL ENLARGEMENT DELAYED PRECORDIAL R/S TRANSITION CONSIDER INFERIOR INFARCT, AGE INDETERMINATE BORDERLINE T WAVE ABNORMALITY- HIGH LATERAL LEADS BASELINE ARTIFACT- I, III, AVR, AVL, AVF, V1 ABNORMAL ECG No previous ECG available for comparison Electronically Signed On 11-08-2023 14:34:03 CDT by Guzman Kam D.O.
[2023-11-08 13:40] VITALS: BP 151/76; PULSE 86; RESP 16; TEMP 36.6; O2SAT 98
[2023-11-08 13:47] LABS: Basophils Absolute Auto 0.1 K/mm3 (0.0-0.1); Basophils Percent Auto 0.8 % (0.2-1.2); Eosinophils Percent Auto 0.6 % (0-4.4); Hematocrit 40.3 % (37.0-47.0); Hemoglobin 13.5 g/dL (12.0-15.0); Immature Granulocyte Absolute 0.02 K/mm3 (0.00-0.031); Immature Granulocyte Percent A 0.3 % (0-0.5); Lymphocytes Absolute Auto 1.59 K/mm3 (0.9-3.2); Lymphocytes Percent Auto 24.3 % (18.3-44.2); Mean Corpuscular HGB Conc 33.5 g/dl (32-36); Mean Corpuscular Hemoglobin 31.2 pg (26-34); Mean Corpuscular Volume 93.1 fl (80-100); Mean Platelet Volume 9.1 fl (7.4-10.4); Monocytes Absolute Auto 0.5 K/mm3 (0.1-0.6); Monocytes Percent Auto 8.1 % (2.6-8.5); Neutrophils Absolute Auto 4.3 K/mm3 (1.3-6.7); Neutrophils Percent Auto 65.9 % (45.5-73.1); Platelet Count Result 345 k/mm3 (150-375); Red Blood Count 4.33 M/mm3 (4.2-5.4); Red Cell Distribution Width 12.7 % (11.5-14.5); White Blood Count 6.6 K/mm3 (4.5-10.0)
[2023-11-08 13:56] LABS: Prothrombin Time 13.5 Seconds (11.1-14.7)
[2023-11-08 13:57] LABS: Partial Thromboplastin Time 26.1 Seconds (22.3-36.8)
[2023-11-08 13:59] LABS: Alanine Aminotransferase 18 U/L (6-35); Albumin Level 4.7 g/dL (3.5-5.1); Alkaline Phosphatase 89 U/L (38-126); Anion Gap 10 mmol/L (4-12); Aspartate Amino Transferase 23 U/L (14-36); Bilirubin,Total 0.4 mg/dL (0.2-1.3); Blood Urea Nitrogen 16 mg/dL (7-17); Calcium 11.6 mg/dL (8.4-10.2); Carbon Dioxide 26 mmol/L (22-30); Chloride 102 mmol/L (98-107); Estimated Glomerular Filt Rate > 60; Glucose 128 mg/dL (65-110); Lipase 146 U/L (23-300); Potassium 3.8 mmol/L (3.4-5.0); Sodium 138 mmol/L (137-145)
[2023-11-08 14:11] LABS: Troponin I < 0.012 ng/mL (0.000-0.034)
[2023-11-08 15:12] VITALS: O2SAT 98
[2023-11-08 15:15] VITALS: BP 146/107; PULSE 66; PULSE 68; RESP 13; O2SAT 97
[2023-11-08] MEDS: ASPIRIN 81 MG CHEWABLE TABLET 324 MG PO (15:16)
--- NOTE | 2023-11-08 16:22 | ED.CHESTPAIN ---
HPI - Chest Pain General Chief Complaint: Chest Pain Stated Complaint: chest pain, SOB Time Seen by Provider: 11/08/23 15:59 History of Present Illness HPI narrative: Patient is a 63-year-old female who presents to the emergency department this afternoon complaining of chest pain and feeling sick since October 15. Patient states that she has been having a sore throat, cough, and these chest pain for the past few weeks. Her primary care physician prescribed her 2 doses of antibiotics including a Z-Mikel which she has finished but states that her symptoms are not improving. Denies any nausea, vomiting, or abdominal pain, denies any ear pain or fevers or chills. Denies any history of cardiovascular disease. No additional symptoms or concerns at this time. Related Data Home Medications Medication Instructions Recorded Confirmed methocarbamol 750 mg tablet 750 mg PO DAILY 10/16/23 10/30/23 Allergies Allergy/AdvReac Type Severity Reaction Status Date / Time amoxicillin Allergy Mild Itching Verified 11/08/23 15:14 tramadol Allergy Mild Itching Verified 11/08/23 15:14 Review of Systems Review of Systems: All systems are reviewed and are negative unless stated otherwise in the HPI. [facility] Past Medical History Medical History Cervical spondylosis Chronic sinusitis Depression HLD (hyperlipidemia) Sinus congestion Urinary incontinence Surgical History Surgical History History of cholecystectomy History of right hip replacement Family History Family History Mother Hypertension Cerebrovascular accident Family history of anemia Family history of hyperthyroidism Mother Patient's mother is , Onset Age: 85 Father Patient's father is , Onset Age: 72 Social History Social History Smoking status: Never smoker Smoking end date: 03/09/99 Alcohol intake: current Do You Feel Safe in your Home?: Yes Lack of Transportation: No Lack of Food: Never True Current Housing: I Have Housing Concerned About Future Housing: No Difficulty Paying Gas/Electric Bills: No Difficulty Paying for Meds: No Currently Unemployed: No Education: High School Diploma/GED Difficulty w/ Childcare or Family Care: No Gender identity (if verbalized by the patient): Female Exam Narrative: General: Alert, awake, afebrile, in no acute distress. HEENT: PERRL, no rhinorrhea, no post nasal drip, oropharynx clear, clear bilateral tympanic membranes. Cardiovascular: Regular rate and rhythm, no murmurs, rubs or gallops, no peripheral edema. Respiratory: Clear to auscultation bilaterally, no tachypnea, no wheezing, no rhonchi, no rubs, no respiratory distress. Abdomen: Soft, nontender, nondistended, no rebound, no guarding, no peritoneal signs. Musculoskeletal: No joint swelling or deformity, normal muscle tone. Skin: No rashes or petechia, no signs of infection. Neurological: Alert and oriented to person, place, and time. Follows all commands. No focal deficits, speech is clear and fluent. Course Vital Signs Vital signs: Vital Signs Temperature 97.8 F 11/08/23 13:40 Pulse Rate 86 11/08/23 13:40 Respiratory Rate 16 11/08/23 13:40 Blood Pressure 151/76 H 11/08/23 13:40 Pulse Oximetry 98 11/08/23 13:40 Oxygen Delivery Room Air 11/08/23 13:40 Temperature 97.8 F 11/08/23 13:40 Pulse Rate 68 11/08/23 15:15 Respiratory Rate 13 11/08/23 15:15 Blood Pressure 146/107 H 11/08/23 15:15 Pulse Oximetry 97 11/08/23 15:15 Oxygen Delivery Room Air 11/08/23 15:12 MDM - Chest Pain MDM Narrative Medical decision making narrative: The patient was evaluated by myself in the emergency department. History is obtained from kelsie
--- NOTE | 2023-11-08 16:29 | ECG_ITS ---
Test Date: 2023-11-08 16:35:25 Measurements Intervals [place] Rate: 65 P: 63 NC: 127 QRS: 0 QRSD: 92 T: 34 QT: 354 QTc: 369 Interpretive Statements SINUS RHYTHM LEFT VENTRICULAR HYPERTROPHY CONSIDER INFERIOR INFARCT, AGE INDETERMINATE BASELINE ARTIFACT- I, II, III, AVR, AVL, AVF, V4-V6 ABNORMAL ECG Compared to ECG 11/08/2023 13:31:34 Ectopic atrial rhythm no longer present Electronically Signed On 11-08-2023 20:15:15 CDT by Guzman Kam D.O.
[2023-11-08 17:00] VITALS: BP 130/71; PULSE 77; RESP 23; TEMP 36.6; O2SAT 95
[2023-11-08 17:10] LABS: Troponin I < 0.012 ng/mL (0.000-0.034)
== END 2023-11-08 17:06 | disposition home or self-care (01) ==
LOC: ANHED 16:27
PROVIDERS: Emergency Medicine; Emergency Provider Emergency Medicine; PCP Emergency Medicine
DX: B34.9 Viral infection, unspecified (principal); R07.9 Chest pain, unspecified; E78.5 Hyperlipidemia, unspecified; Z96.641 Presence of right artificial hip joint
CPT/HCPCS: 36415; 71046; 80053; 83690; 84484; 85025; 85610; 85730; 93005; 99284; A9270

== ENCOUNTER 2024-01-20 09:18 | Outpatient (CLI) | payer OTHER, SELFPAY ==
--- NOTE | 2024-01-20 09:28 | EST_ITS ---
Patient Info Name: Amita Ray Age: 64 years : 1960 Gender: Female Ht: 62 in Wt: 125 lbs BSA: 1.58 m2 HR: 67 bpm BP: 124 / 72 mmHg Exam Date: 01/20/2024 10:12 AM Exam Location: Echo Lab Patient Status: Outpatient Admit Date: 01/20/2024 Staff Ordering Physician: Edu Morelos MD Attending Provider: Edu Morelos MD Exercise Technologist: Adair [facility] Exercise Physician: Guzman Kam DO Exam Type: CA stress test treadmill Study Info A treadmill exercise stress test was performed. Summary 1. 1. Negative Andrei exercise stress test for ischemic ST changes by ECG criteria. 2. 2. Good functional capacity, achieving 8 METs of workload. 3. 3. Appropriate HR response to exercise. 4. 4. Appropriate HR recovery at 1 minute post exercise. 5. 5. No imaging with stress testing. 6. 6. Patient informed of the above results. Protocol: Andrei Stress ECG Details Stage: REST Duration (min): 1 min : 16 sec Speed (mph): 0.0 Grade (%): 0 HR (bpm): 66 SBP (mmHg): 124 DBP (mmHg): 72 METS: --- Stage: REST Duration (min): 4 min : 41 sec Speed (mph): 0.0 Grade (%): 0 HR (bpm): 69 SBP (mmHg): 124 DBP (mmHg): 72 METS: --- Stage: STAGE 1 Duration (min): 1 min : 0 sec Speed (mph): 1.7 Grade (%): 10 HR (bpm): 100 SBP (mmHg): 124 DBP (mmHg): 72 METS: --- Stage: STAGE 1 Duration (min): 2 min : 0 sec Speed (mph): 1.7 Grade (%): 10 HR (bpm): 110 SBP (mmHg): 124 DBP (mmHg): 72 METS: --- Stage: STAGE 1 Duration (min): 3 min : 0 sec Speed (mph): 1.7 Grade (%): 10 HR (bpm): 110 SBP (mmHg): 154 DBP (mmHg): 71 METS: --- Stage: STAGE 2 Duration (min): 1 min : 0 sec Speed (mph): 2.5 Grade (%): 12 HR (bpm): 120 SBP (mmHg): 154 DBP (mmHg): 71 METS: --- Stage: STAGE 2 Duration (min): 2 min : 0 sec Speed (mph): 2.5 Grade (%): 12 HR (bpm): 129 SBP (mmHg): 170 DBP (mmHg): 67 METS: --- Stage: STAGE 2 Duration (min): 3 min : 0 sec Speed (mph): 2.5 Grade (%): 12 HR (bpm): 136 SBP (mmHg): 170 DBP (mmHg): 67 METS: --- Stage: STAGE 3 Duration (min): 0 min : 31 sec Speed (mph): 3.4 Grade (%): 14 HR (bpm): 150 SBP (mmHg): 170 DBP (mmHg): 67 METS: --- Stage: RECOVERY Duration (min): 0 min : 28 sec Speed (mph): 0.0 Grade (%): 0 HR (bpm): 136 SBP (mmHg): 187 DBP (mmHg): 71 METS: --- Stage: RECOVERY Duration (min): 1 min : 13 sec Speed (mph): 0.0 Grade (%): 0 HR (bpm): 86 SBP (mmHg): 187 DBP (mmHg): 71 METS: --- Rest HR: 69 bpm Peak HR: 150 bpm Rest Sys BP: 124 mmHg Peak Sys BP: 187 mmHg Max Pred HR: 154 bpm % Max Pred HR: 97 % Target HR: 131 bpm Max RPP: 28,050 bpm*mmHg Bazan Score: -2 Termination Reason: Reached target heart rate or workload Cardiac Symptoms: Shortness of breath Max ST Seg Deviation: -1.80 mm Total Time: 6 min : 31 sec Rest Bell BP: 72 mmHg Peak Bell BP: 71 mmHg Angina Score: None Total METS: 8.0 Resting ECG Sinus rhythm. Stress ECG No ST changes. Arrhythmias None. Report Signatures
== END 2024-01-20 09:19 | disposition home or self-care (01) ==
PROVIDERS: PCP Emergency Medicine; Visit Provider Emergency Medicine
DX: R06.09 Other forms of dyspnea (principal)
CPT/HCPCS: 93017

== ENCOUNTER 2024-01-27 10:47 | Outpatient (CLI) | payer OTHER, SELFPAY ==
--- NOTE | ~2024-01-27 | DEXA_ITS ---
Bone Density Report Name: RAFFY TERAN Age: 64 Sex: Female Ethnicity: White Date of : 1960 Indication: osteopenia; hysterectomy; Referring Provider: CORINNE BHATIA Study: Bone densitometry was performed. Exam Date: January 27, 2024 Accession number: [id number] Bone Density: Region BMD T-score Z-score Classification AP Spine(L1-L4) 1.002 -0.4 1.4 Normal Femoral Neck (Left) 0.552 -2.7 -1.1 Osteoporosis Total Hip (Left) 0.681 -2.1 -0.9 Osteopenia World Health Organization criteria for BMD impression classify patients as: Normal (T-score at or above -1.0), Osteopenia (T-score between -1.0 and -2.5), or Osteoporosis (T-score at or below -2.5). 10-year Fracture Risk: FRAX not reported because: Some T-score for Spine Total or Hip Total or Femoral Neck at or below -2.5 Previous Exams: Region Exam Age BMD T-score BMD Change BMD Change Date g/cm2 vs Baseline vs Previous AP Spine (L1-L4) 01/27/2024 64 1.002 -0.4 -0.033 (-3.1%) -0.033 (-3.1%) 07/03/2021 61 1.035 -0.1 Total Hip(Left) 01/27/2024 64 0.681 -2.1 -0.017 (-2.5%) -0.017 (-2.5%) 07/03/2021 61 0.698 -2.0 *Denotes significance at 95% confidence level, LSC for AP Spine = 0.022 g/cm2, LSC for Total Hip = 0.027 g/cm2 Clinical Information Provided by Patient: Has used the following medications: Vitamin D, Calcium Has the following medical conditions: Hysterectomy Patient maximum height was 62 Menopause Age: 48 No regular weight bearing exercise Drinks caffeinated beverages Onset of menses at age 12 Number of children 3 Impression: The patient has osteoporosis, based on the Left Femoral Neck T-score. The BMD for the AP Spine (L1-L4) decreased, changing by -3.1% since the last DXA exam. Discussion: INCREASED RISK OF FRACTURE. BONE DENSITY IS UNDESIRABLY LOW AT ONE OR MORE SKELETAL SITES, CONSISTENT WITH POSTMENOPAUSAL OSTEOPOROSIS. This patient's lowest T-score meets the World Health Organization's (WHO) criteria for osteoporosis at one or more sites (T-score -2.5 or below). In untreated patients, the risk of osteoporotic fracture increases approximately two-fold for each 1.0 SD decrease in T-score. Low bone density is not the only risk factor for fracture; also consider factors such as patient's age, frailty or poor health, risk of falling, risk of injury, previous osteoporotic fracture, family history of osteoporosis, cigarette smoking, low body weight, etc. Not everyone with low bone mineral density has osteoporosis; osteomalacia and other metabolic bone disorders should also be considered. Patients who have osteoporosis should be evaluated for specific diseases and conditions (secondary causes) that may cause or contribute to bone loss. The [place] Association of Clinical Endocrinologists (AACE) and National Osteoporosis Foundation (NOF) recommend pharmacologic intervention for all postmenopausal women whose T-score is in this range. The patient should follow a healthful lifestyle (good nutrition with adequate calcium and vitamin D, and appropriate weight-bearing exercise). Follow-Up: Consider a repeat BMD and Vertebral Fracture Assessment (VFA) exam in 2 years or sooner if medically necessary, to reassess this patient's status. Reported by: KAN on 01/27/2024 11:26:00 AM. Reviewed, dictated and finalized at location ASuki CHAUDHARI
== END 2024-01-27 10:48 | disposition home or self-care (01) ==
LOC: ANHIMG 10:48
PROVIDERS: PCP Emergency Medicine; Visit Provider Emergency Medicine
DX: E55.9 Vitamin D deficiency, unspecified (principal); Z78.0 Asymptomatic menopausal state; M81.0 Age-related osteoporosis without current pathological fracture; M85.852 Other specified disorders of bone density and structure, left thigh
CPT/HCPCS: 77080

== ENCOUNTER 2024-04-14 15:34 | Emergency (ER) | payer MEDICARE, SELFPAY ==
--- NOTE | ~2024-04-14 | XR_ITS ---
CHEST RADIOGRAPH, PA AND LATERAL CLINICAL HISTORY: cp . COMPARISON: 11/08/2023 TECHNIQUE: PA and lateral views of the chest. FINDINGS The cardiomediastinal silhouette is unremarkable. The lungs are clear. Visualized osseous structures and soft tissues are unremarkable. IMPRESSION: No focal infiltrate or effusion. Reviewed, dictated and finalized at location A. ALTY UNDERWRITER
--- OUTSIDE RECORDS SUMMARY | 2024-04-14 15:38 | XMS_ITS | Clinical Summary ---
Author Organization [facility] Address [address] [place] [address] Care Team Providers Care Windows Security Analyst Name Role Phone Charlie Alfredo MD Primary Care Provide r Allergies Active Allergy Reactions Criticality Noted Date Comments Amoxicillin Other (See comments) Low 10/05/2018 itching Tramadol Rash Medium 07/25/2017 Medications calcium carbonate-vitami n D3 1,250mg (500mg elemental) - 200 units per tablet Take 1 tablet by mouth 2 (two) times a day with meals. Active multivitamin with minerals tablet Take 1 tablet by mouth daily. Active nortriptyline (PAMELOR) 10 mg capsule Take 10 mg by mouth 2 (two) times a day. Active cyclobenzaprine (FLEXERIL) 10 mg tablet Take 10 mg by mouth 2 (two) times a day as needed for muscle spasms. Active ferrous sulfate 325 mg (65 mg of elemental iron) tabletIndication s:Iron Deficiency Anemia Take 1 tablet (325 mg total) by mouth 2 (two) times a day after lunch and dinner. 20 tablet 8 Active aspirin 325 mg EC tabletIndication s:Deep Vein Thrombosis Prevention Take 1 tablet (325 mg total) by mouth 2 (two) times a day. 100 tablet 8 Active Additional Information Patient not taking.Reported on 11/17/2017 morphine ER (MS CONTIN) 30 mg 12 hr tabletIndication s:Severe Pain,Discontinue previos home oral dilaudid Take 1 tablet (30 mg total) by mouth every 8 (eight) hours. 60 tablet 8 Active Additional Information Patient not taking.Reported on 10/05/2018 HYDROmorphone 4 mg/mL solution Activ e LORazepam (ATIVAN) 1 mg tablet 0 8 Active nitrofurantoin monohydrate (MACROBID) 100 mg capsule TK 1 C PO BID 0 9 Active oxybutynin XL (DITROPAN-XL) 10 mg 24 hr tablet TK ONE T PO D 12 9 Active Lactobac no.41/Bifidobact no.7 (PROBIOTIC-10 ORAL) Take by mouth Active alendronate (FOSAMAX) 70 mg tabletIndication s:Osteoporosis screening,Age-re lated osteoporosis without current pathological fracture TAKE 1 TABLET BY MOUTH EVERY 7 DAYS 12 tablet 3 2 Active Active Problems Problem Noted Date Diagnosed Date Aftercare following right hip joint replacement surgery 07/15/2017 Prophylactic antibiotic 07/15/2017 Surgical History Surgery Date Site/Laterality Comments HYSTERECTOMY 03/09/2003 - 03/08/2004 CHOLECYSTECTOMY TUBAL LIGATION FINGER GANGLION CYST EXCISION Right pointer finger JOINT REPLACEMENT HIP SURGERY Medical History Medical History Date Comments Depression Chronic back pain Carpal tunnel syndrome right Hard to intubate decreased exten quita, ant larynx, used glidescop Family History Medical History Relation Name Comments Seizures Brother 1 Family history of seizures - (Added by TW Conv) Kidney disease Brother 2 Family histor y of kidney disease - (Added by TW Conv) Cancer Father Family history of malignant neoplasm - (Added by TW Conv) Hypertension Father Family history of hypertension - (Added by TW Conv) Diabetes Mother Family history of diabetes mellitus - (Added by TW Conv) Hypertension Mother Family history of hypertension - (Added by TW Conv) Osteoporosis Mother Stroke Mother Family history of cerebrovascular accident (CVA) - (Added by TW Conv) Stroke Sister Family history of cerebrovascular accident (CVA) - (Added by TW Conv) Seizures Son Family history of seizures - (Added by TW Conv) Relation Name Status Comments Brother 1 Brother 2 Father Mother Sister Son Social History Tobacco Use Types Packs/Day Years Used Date Smoking Tobacco: Former Cigarettes Smokeless Tobacco: Never Alcohol Use Standard Drinks/Week Comments Yes 0 (1 standard drink = 0.6 oz pur e alcohol) social Comments No Sex and Gender Information Value Date Recorded Sex Assigned at Not on file Legal Sex Female 1:24 AM APPLICATION DEVELOPMENT CONSULTANT Gender Identity Not on file Sexual Orientation Not on file Obstetrics History Last Filed Vital Signs Vital Sign Reading Time Taken Comments Blood Pressure 128/70 08/28/2017 12:40 PM CDT Pulse 70 08/28/2017 12:40 PM CDT Temperature 36.7 C (98.1 F) 08/28/2017 12:40 PM CDT Respiratory Rate 18 08/28/2017 12:40 PM CDT Oxygen Saturation 97% 08/28/2017 12:40 PM CDT Inhaled Oxygen Concentration - - Weight 58 kg (127 lb 12.8 oz) 01/10/2020 9:33 AM APPLICATION DEVELOPMENT CONSULTANT Height 157.5 cm (5' 2 ) 01/10/2020 9:33 AM APPLICATION DEVELOPMENT CONSULTANT Body Mass Index 23.37 01/10/2020 9:33 AM APPLICATION DEVELOPMENT CONSULTANT Plan of Treatment Health Maintenance Due Date Last Done Comments Breast Cancer Screening-Mammogram 1960 Colon Cancer Screening-Colonoscopy 1960 Depression Screening 1960 Fall Risk Assessment 1960 Hepatitis C Screening 1960 DTaP/Tdap/Td Vaccine (1 - Tdap) 1969 Hepatitis B Screening 01/13/1976 Zoster Vaccine (1 of 2) 01/13/2008 Osteoporosis Screening-Bone Density Scan 01/09/2022 01/10/2020, 10/05/2018 Pneumococcal vaccine 65+ (1 of 1 - PCV) 2023 Well Visit 65+ 2023 Influenza Vaccine (#1) 2023 12/16/2019, 2018 Medical Devices Implanted Type Area Wash Test Checker Device Identifier Shelf Expiration Date Model / Serial / Lot [employer] Ringloc+ 50mm Limit Hole Shell Hip Acetabular - [id number] Implanted:Qty: 1 on 08/19/2017 by Ferdinand Ascencio MD at [facility] Right: Hip [employer] [id number] 12/24/2026 [id number] / / [id number] [employer] Ringloc 36mm High Wall Liner Hip +3mm 23 Acetabular E-Poly - [id number] Implanted:Qty: 1 on 08/19/2017 by Ferdinand Ascencio MD at [facility] Right: Hip [employer] [id number] 06/25/2022 [id number] / / [id number] [employer] 6.5mm 45mm Low Profile Screw Hip Acetabular Cancellous Dome Bone - [id number] Implanted:Qty: 1 on 08/19/2017 by Ferdinand Ascencio MD at [facility] Right: Hip [employer] 08/02/2026 [id number] / / [id number] [employer] Echo Bi-Metric 12mm 140mm Noncollar Full Proximal Profile Press - [id number] Implanted:Qty: 1 on 08/19/2017 by Ferdinand Ascencio MD at [facility] Right: Hip [employer] [id number] 10/30/2025 [id number] / / [id number] [employer] G7 Type 1 Sleeve Hip Standard Offset Taper Centering Titanium - [id number] Implanted:Qty: 1 on 08/19/2017 by Ferdinand Ascencio MD at [facility] Right: Hip [employer] [id number] 11/28/2026 [id number] / / [id number] Head Femoral G7 Biolox Delta Biolox Option Od36 Mm Hip - [id number] Implanted:Qty: 1 on 08/19/2017 by Ferdinand Ascencio MD at [facility] Right: Hip [employer] [id number] 09/11/2026 [id number] / / [id number] Procedures Procedure Name Priority Date/Time Associated Diagnosis Comments DEXA AXIAL SKELETON BONE DENSITY 1 OR MORE SITES Schedule Routine, Read Routine (OP Routine) 01/10/2020 10:11 AM APPLICATION DEVELOPMENT CONSULTANT Osteoporosis screening from Last 3 Months or Most Recently Relevant to Health Maintenance Results * Dexa Axial Skeleton Bone Density 1 or 2 Site (01/10/2020 10:11 AM APPLICATION DEVELOPMENT CONSULTANT) Anatomical Region Laterality Modality Body N/A Radiographic Yaritza ging Narrative 01/10/2020 10:18 AM APPLICATION DEVELOPMENT CONSULTANT Patient Name: Raffy Teran Date of : 1960 Date of scan: 01/10/2020 Bone mineral density was performed on a Checkout10 Discovery Densitometer. Machine Cross-calibration and Precision studies have been performed with a least significant change of 0.024 g/cm at the spine, 0.020 g/cm at the total proximal femur, and 0.014g/cm at the forearm. HISTORY: This is a 59 y.o. postmenopausal female with a history of osteoporosis, thyroid disease and vitamin D deficiency. Currently on treatment with calcium and Fosamax. With a current complaint of back and neck pain. History of tobacco use: Social History Tobacco Use Smoking Status Former Smoker Types: Cigarettes INDICATIONS: Menopause status, treatment monitoring, vitamin D deficiency and history of osteoporosis. FINDINGS: BONE MINERAL DENSITY OF THE LUMBAR SPINE Bone Mineral Density (BMD) of the lumbar spine was measured from L1-L4 and the average density was calculated to be 1.034 gm/cm. This corresponds to a T-score standard deviations from the mean of young adults of -0.1. When compared to the previous study of 10/05/2018 there has been a measured 0.056 gm/cm 5.7 % increase which is considered significant. BONE MINERAL DENSITY OF THE PROXIMAL FEMUR Bone Mineral Density (BMD) of the left hip total was found to be 0.725 gm/cm2. This corresponds to a T-score standard deviations from the mean of young adults of -1.8. Femoral neck is 0.712 gm/cm2 with a T-score of -1.2. When compared to the previous study of 10/05/2018 there has been a measured 0.050 gm/cm 7.4 % increase which is considered significant. SUMMARY: Bone mineral density shows evidence of low bone mass in the hip and moderately increased fracture risk. There has been significant increase in bone mineral density since previous measurement. ADDITIONAL COMMENTS: If the patient has a history of a fragility fracture, a fracture that occurred with trauma equivalent to a fall from a standing position or less, then the diagnosis is osteoporosis. The risk of osteoporotic fracture increases approximately 2-fold for each 1.0 SD decrease in T-score. However, low bone density is not the only risk factor for fracture. Other factors include patient s age, previous osteoporotic fracture or prior fracture as an adult, loss of height of greater than 2 inches, corticosteroid use, risk of falling, risk of injury, and family history of osteoporosis. Not everyone with low bone mineral density has osteoporosis. Osteomalacia and other metabolic bone disorders should also be considered where indicated. Patients who have osteoporosis should be evaluated for specific diseases and conditions (secondary causes) that may cause or contribute to bone loss. Consider repeating this study in 1-2 years to assess the patient s response to treatment, if applicable. It is recommended that any follow up exam be performed on the same machine if possible for better accuracy. DEFINITIONS: Osteoporosis: BMD at or below -2.5 T-score Osteopenia (low bone mass): BMD between -1.0 and-2.5 T-score. The Bone Health Program adopts the following WHO definitions: Osteoporosis: BMD below -2.5 S.D. as compared to the BMD of young normal adults. Osteopenia or Low Bone Mass: BMD between -1.0 and -2.5 S.D. below the BMD of young normal adults. Normal Bone Density: BMD equal to or greater than -1.0 S.D. as compared to the BMD of young normal adults. References: 1) Cisco, Annals of Internal Medicine 114(11): 919-923 (1990) 2) Daniel, Lancet 341 : 72-75 (1992) 3) Black, Journal Bone and Mineral Research 7(6): 633-8 (1991) 4) Kong, Journal Bone and Mineral Research 8(10):1227-33 (1992) The history and data sections of the bone mineral density scan were prepared by Demi Dolan(Roman) MANUEL who is accredited by the International Society of Clinical Densitometry. The overall patient assessment and scan interpretation were performed by Chelo Colin M.D. who is certified by the International Society of Clinical Densitometry. [id number] Chelo Colin MD IMG DXA PROCEDURES Final Resu lt from Last 3 Months or Most Recently Relevant to Health Maintenance Insurance [facility] AETNA SIG [id number] [facility] Advance Directives For more information, please contact: [phone] * Full Code (Latest Code Status on File) Date Activated Date Inactivated Comments 08/24/2017 11:03 PM * Full Code Date Activated Date Inactivated Comments 08/24/2017 7:07 AM 08/24/2017 11:03 PM * Full Code Date Activated Date Inactivated Comments 08/19/2017 11:18 AM 08/21/2017 3:16 PM Care Teams Windows Security Analyst Relationship Specialty Start Date End Date Charlie Alfredo MD PCP - General 06/30/17
--- OUTSIDE RECORDS SUMMARY | 2024-04-14 15:38 | XMS_ITS | Continuity of Care Document ---
Author Organization [facility] Address [address] [place] [address] Phone Care Team Providers Care Life Enrichment Manager Name Role Phone Isabelle BIANCHI, Erich Unavailable Unavailable Advance Directives Directive Yes / No Effective Date File Name No Information Encounters Encounter Description Practice Location Reason(s) For Visit Diagnoses Date Provider Providers Copied on Encounter [facility], [address], [place], [place], [id number], [place] tel:[phone] [facility] No Information Isabelle Jung. [address] , [place], [place], [id number], [place]. tel:[phone] Referring Provider: Antonio Vargas, [address], [place], [address]. tel:[phone] Family History Family Member Type Diagnosis Age At Onset No Information Payers Payer name Insurance type Covered libertarian ID Authoriza tion(s) [employer] OPEN ACCESS I II III [place] [id number] Social History Type Description Quantity Date Captured Comments Sex Female Smoking Status No Information Chief Complaint And Reason For Visit No Information Reason For Referral Reason For Referral No Information History Of Present Illness Encounter Date Complaint History Of Prese nt Illness No Information Functional Status Date Functional Assessmen t No Information Instructions Date Instruction Additional Infor mation No Information Assessments Type Assessment Date No Information Patient Care Teams Name Effective Dates (start - stop) Status Members No Information
--- OUTSIDE RECORDS SUMMARY | 2024-04-14 15:38 | XMS_ITS | Clinical Summary ---
Author Organization [facility] Address [address] [place] [address] Care Team Providers Care Agricultural Engineering Teacher Name Role Phone Edu Morelos MD Primary Care Provider [phone] Allergies Active Allergy Reactions Criticality Noted Date Comments Tramadol Unknown 09/30/2023 Medications methocarbamol (ROBAXIN) 750 MG Tab take 1 tablet by mouth three times a day for 30 days 4 Active BONE STIMULATOR, DME,Indications: Lumbar spine instability Wear 4 hours daily. Can break up into multiple sessions totaling 4 hours. 1 Device 4 Active Misc. Devices MiscIndications: Lumbar spine instability 1 each by Does not apply route continuous. LSO for continuous wear while ambulating or up in chair. 1 each 4 Active Active Problems Problem Noted Date Diagnosed Date Spinal stenosis of lumbar re gion with neurogenic claudication 09/30/2023 Spondylolisthesis of lumbar region 09/30/2023 Abnormal MRI, lumbar spine 09/30/2023 Facet hypertrophy of lumbar region 09/30/2023 Radiculopathy, lumbar region 09/30/2023 Foraminal stenosis of lumbar region 09/30/2023 Social History Tobacco Use Types Packs/Day Years Used Date Smoking Tobacco: Former Cigarettes Smokeless Tobacco: Never Tobacco Cessation:Counseling Given: Not Answered Passive Exposure Comments:quit 25 years ago Alcohol Use Standard Drinks/Week Comments Never 0 (1 standard drink = 0.6 oz pur e alcohol) Comments Unknown Sex and Gender Information Value Date Recorded Sex Assigned at Not on file Legal Sex Female 8:16 PM CDT Gender Identity Not on file Sexual Orientation Not on file Last Filed Vital Signs Vital Sign Reading Time Taken Comments Blood Pressure 100/62 09/30/2023 2:01 PM CDT Pulse 79 09/30/2023 2:01 PM CDT Temperature 36.7 C (98 F) 09/30/2023 2:01 PM CDT Respiratory Rate - - Oxygen Saturation 98% 09/30/2023 2:01 PM CDT Inhaled Oxygen Concentration - - Weight 55.8 kg (123 lb) 09/30/2023 2:01 PM CDT Height 157.5 cm (5' 2 ) 09/30/2023 2:01 PM CDT Body Mass Index 22.5 09/30/2023 2:01 PM CDT Plan of Treatment Health Maintenance Due Date Last Done Comments Colorectal Cancer Screening Colonoscopy (10 Years) 1960 Hepatitis C 01/13/1976 DTaP, Tdap and Td Vaccines ( 1 - Tdap) 1977 Mammogram Screening 1998 Zoster Vaccines (1 of 2) 01/13/2008 Pneumococcal Vaccine: 65+ Years (1 of 1 - PCV) 2023 COVID-19 Vaccine (3 - 2023-2 5 season) 2023 04/27/2020, 04/06/2020 Influenza Adult (#1) 2023 12/16/2019, 12/28/2018 PHQ-2 (Physician Sandy) 03/09/2024 RSV Immunization or 60+ Years (1 - 1-dose 75+ series) 2033 Dexa Scan (General) Completed 01/10/2020, 10/05/2018 Meningococcal B Vaccine Aged Out No l onger eligible based on patient's age to complete this topic Meningococcal Vaccine Aged Out No leeroy katty eligible based on patient's age to complete this topic RSV Immunizations Under 20 Months Aged Out No longer eligible b ased on patient's age to complete this topic Insurance [employer] Care Teams Agricultural Engineering Teacher Relationship Specialty Start Date End Date Edu Morelos MD [address] [facility] [address] [place] [address] PCP - General INTERNAL MEDICINE 09/30/23
--- OUTSIDE RECORDS SUMMARY | 2024-04-14 15:38 | XMS_ITS | Encounter Summary ---
Author Organization [facility] Healthcare Address [address] [place] [address] Care Team Providers Care Culled Fruit Packer Name Role Phone Charlie Alfredo MD Primary Care Provide r Encounter Details Date Type Department Care Team (Late st Contact Info) Description 08/21/2017 Documentation [facility] Case Management [id number] [place] [id number] Salome Mckinnon RN Social History Tobacco Use Types Packs/Day Years Used Date Smoking Tobacco: Former Comments No Sex and Gender Information Value Date Recorded Sex Assigned at Not on file Legal Sex Female 1:24 AM [employer] Gender Identity Not on file Sexual Orientation Not on file documented as of this encounter Plan of Treatment Not on file documented as of this encounter Visit Diagnoses Not on filedocumented in this encounter Care Teams Culled Fruit Packer Relationship Specialty Start Date End Date Charlie Alfredo MD PCP - General 06/30/17 documented as of this encounter
--- OUTSIDE RECORDS SUMMARY | 2024-04-14 15:38 | XMS_ITS | Data Portability ---
Author Organization [facility] [place] Address [address] [place] [place] [address] [place] [address] Assessment Encounter Date Assessment Date Assessment LastModified by Organization Details LastModified Time 08/01/2021 08/01/2021 Annual gynecological exam performed. Patient will come back in a year unless there are new symptoms. Not available 07/30/2021 17:07:01 07/21/2023 07/21/2023 Annual gynecological exam performed. Patient will come back in a year unless there are new symptoms. Not available 07/21/2023 09:28:20 Plan of Treatment Reminders Order Date Submit Date Provider Last Modified By Organization Details Last Modified Time Details Appointments None recorded . Lab genetic disease analysis , blood or tissue 2021 022 [employer], [address], [place], [address], 21:38:45 Referral None recorded . Procedures None recorded . Surgeries None recorded . Imaging MAMMO, screenin g, bilatera l 2021 022 [email or web address] [facility], [address], [place], [address], 16:20:34 US, pelvis, complete 2021 022 [email or web address] [place], [address], [address], [place], [address], 05/26/202 2 19:05:29 US, pelvis 2021 022 [email or web address] [place], [address], [place], [address], 2 18:10:40 US, transvag inal 2021 022 [email or web address] [place], [address], [place], [address], 2 18:10:40 MAMMO, screenin g, digital, bilatera l 2023 024 KI [facility], [address], [place], [address], 4 05:00:53 Medication Orders None recorded . Patient TargetsNo targets recorded. Patient InstructionsNo instructions recorded. Reason for Referral None Reported. Results Created Date Observation Date Name Description Value Unit Range Abnormal Flag Note LastModifiedBy Organization Detail LastModifiedTime 07/12/1907/15/2019 surgi nestor patho logy study surgical pathology View Report ACCES FADUMO #: [id number] Patie nt Name: BORIS VALENTINE J Age-S ex-DO B: 59y F 01/12 Proce dure Date: 07/11 Acces fadumo Date: Pt Acct# : Repor t Date: Locat ion: OFFIC E Physi usman( s): Shadi moreira Fried negin P A T H O L O G Y R E P O R T DIAGN OSIS: Peria nal regio n, biops y: Fibro epith elial polyp . Viktoria gamboa MD elect elvia sanchez 07/14 03:33 PM Gross Descr iptio n: Recei aure in forma karen label ed Boris baptiste, skin tag/m ole is a weber wrink led lesio n that measu res 3 x 2 x 2 mm. The base of the lesio n is inked and bisec ana. 04/09 NOTE: This is a previ ous probl em speci men to verif y site. After call to docto r's offic e the corre ct site is peria nal area. (JUAN CARLOS, TC,ml m) Micro scopi c Descr iptio n: Micro scopi c exami natio n perfo rmed. Clini nestor Histo ry: Other hyper troph ic disor ders of the skin (L91. 8); skin tag/ mole Speci men List: Peria nal area End of Repor t Techn ical servi fatmata provi ded by [facility] [employer] Patho logis [employer] d/[facility]/a [facility], [address] [facility] [address] [place] [address] Antione Hernandez MD, Labor Settle tor. Case revie wed and diagn osis rende red at [facility] [employer] [facility] logis [employer], [address], [place] [address] Ramu Isaac MD, Labor Settle tor. CONFI DENTI AL Not Available [facility]) [address], [place], [address], 07/15/2019 16:33:51 08/02/19 22 08/01/2021 INVIT AE COMMO N HERED ITARY CANCE RS PANEL abnormal status abnormal Not Available [facility] [address], [place], [address], 08/16/2021 21:38:45 07/14/19 20 07/14/2019 MAMMO , scree cecile, bilat eral No observ ation record ed. ajith [facility] (Imaging) [address], [place], [address], 07/25/2019 12:00:51 07/25/19 20 07/14/2019 MAMMO , scree cecile, bilat eral No observ ation record ed. [email or web address] Not Available 2019 12:00:52 09/07/19 21 MAMMO , scree cecile, bilat eral No observ ation record ed. [email or web address] Not Available 2020 15:34:07 08/16/19 22 08/15/2021 US, pelvi s No observ ation record ed. [email or web address] [place] [address], [place], [address], 08/15/2021 13:01:47 08/16/19 22 08/15/2021 US, trans vagin al No observ ation record ed. [email or web address] [place] [address], [place], [address], 08/15/2021 13:01:56 08/16/19 22 08/15/2021 US, pelvi s No observ ation record ed. baron Carpio [address], [place], [address], 08/19/2021 09:56:42 10/24/19 22 10/23/2021 MAMMO , scree cecile, bilat eral No observ ation record ed. [address], [place], [address], 10/30/2021 17:34:45 06/04/19 24 06/04/2023 MAMMO , scree cecile, bilat eral No observ ation record ed. [address], [place], [address], 06/05/2023 12:02:46 Result Notes None recorded. Procedures Surgical History Date Name Laterality Status Provider Name and Address Organization Details Recorded Time 020 Skin Tag Removal completed KATHERINE Chun- [address], [place], [address], [place] [facility] 07/18/2019 10:35:38 019 Date of Last Pap Smear completed Charley Adamson [facility] 08/01/2021 11:57:50 012 Colonoscopy completed [facility] 07/21/2023 09:34:51 009 cholecystectomy completed [facility] 07/21/2023 09:34:45 000 Tubal Ligation completed [facility] 07/21/2023 09:35:11 000 Total Hysterectomy completed [facility] 07/21/2023 09:34:59 Imaging Results Imaging Date Name Status LastModified by Organization Details LastModified Time 07/14/2019 MAMMO, screening, bilateral completed [address] (Imaging) [address] [facility] [address] [place] [address], [address], 07/25/2019 12:00:51 07/14/2019 MAMMO, screening, bilateral completed [email or web address] Information not available 07/25/2019 12:00:52 09/06/2020 MAMMO, screening, bilateral completed [email or web address] Information not available 09/07/2020 15:34:07 08/15/2021 US, pelvis completed [email or web address] [facility] [address], [place], [address], 08/15/2021 13:01:47 08/15/2021 US, transvaginal completed [email or web address] Nelia hemphill [address], [place], [address], 08/15/2021 13:01:56 08/15/2021 US, pelvis completed baron Carpio [address] [place], [address], 08/19/2021 09:56:42 10/23/2021 MAMMO, screening, bilateral completed [place] [address] [facility] [address] [place] [address], [address], 10/30/2021 17:34:45 06/04/2023 MAMMO, screening, bilateral completed [address], [place], [address], 06/05/2023 12:02:46 Procedure Notes None recorded. Medical Equipment None Reported. Allergies Allergen ID Allergen Name Allergen Category Reaction Reaction Severity Criticality Documentation Date Start Date Code Code System Note Provider Name and Address Organization Details Recorded Time 430 tramadol medicatio n Not available Not available Not available 07/07/2019 [address] RxNorm Isabela Lacey [place], [place] - [facility] 0 15:26:50 Medications Name Sig Start Date Stop Date Status Note LastModified by Organization Details LastModified Time cyclobenz aprine 10 mg tablet TAKE 1 TABLET BY MOUTH 3 TIMES A DAY NEEDED FOR MUSCLE SPASM 07/20 completed Not Available Not Available Not Available naproxen 375 mg tablet TAKE 1 TABLET BY MOUTH TWICE A DAY 07/20 completed Not Available Not Available Not Available clindamyc in HCl 300 mg capsule 300 MG ORALLY FOUR TIMES DAILY FOR 3 DAYS 07/20 completed Not Available Not Available Not Available azithromy penny 250 mg tablet TAKE 2 TABLETS BY MOUTH TODAY, THEN TAKE 1 TABLET DAILY FOR 4 DAYS 07/20 completed Not Available Not Available Not Available Vicodin 5 mg-500 mg tablet take 1 tablet by oral route 4 - 6 hours as needed for pain 02/04 completed Prescrib ed Elsewher e: Yes Loca tion: [facility] M odify By: shasha swanson DateTime : 06/18/19 12 02:30:00 PM Not Available Not Available Not Available alprazola m 0.5 mg tablet 0.5 MG ORALLY TWICE A DAY NEEDED FOR ANXIETY active Not Available Not Available No t Available methocarb darrius 750 mg tablet 1 TAB(S) ORALLY 3 TIMES A DAY NEEDED 10 DAYS 07/20 completed Not Available Not Available Not Available cephalexi n 500 mg capsule 500 MG ORALLY TWICE A DAY FOR 10 DAYS 07/20 completed Not Available Not Available Not Available nortripty line 10 mg capsule take 2 capsule by oral route 4 times every day 04/20 completed Prescrib ed Elsewher e: Yes Loca tion: Nelia hemphill [facility] odify By: bruna swanson DateTime : 06/18/19 12 02:30:00 PM Not Available Not Available Not Available Cipro 500 mg tablet take 1 tablet by oral route every 12 hours 04/20 completed Prescrib ed Elsewher e: No Locat ion: Nelia hemphill [facility] odify By: bruna [email or web address] DateTime : 01/24/20 15 10:30:00 AM Not Available Not Available Not Available magnesium 500 mg (as magnesium oxide) tablet 500 MG ORALLY ONE HOUR BEFORE BEDTIME, BUY OTC active Not Available Not Available No t Available methylpre dnisolone 4 mg tablets in a dose pack TAKE 6 TABLETS ON DAY 1 DIRECTED ON PACKAGE AND DECREASE BY 1 TAB EACH DAY FOR A TOTAL OF 6 DAYS 07/20 completed Not Available Not Available Not Available albuterol sulfate HFA 90 mcg/actua tion aerosol inhaler INHALE 2 PUFFS 4 TIMES A DAY NEEDED FOR SHORTNES S OF BREATH OR FOR WHEEZE 07/20 completed Not Available Not Available Not Available Vitamin D2 1,250 mcg (50,000 unit) capsule take 1 capsule by oral route every week 04/20 completed Prescrib ed Elsewher e: No Locat ion: Nelia hemphill [facility] odify By: bruna swanson DateTime : 06/18/19 17 10:58:05 AM Not Available Not Available Not Available ondansetr on 4 mg disintegr ating tablet TAKE 1 TABLET BY MOUTH EVERY 6 HOURS NEEDED FOR NAUSEA AND VOMITING 07/20 completed Not Available Not Available Not Available hydromorp domi 1 mg/mL oral liquid take 2 millilit er by oral route every 4 hours as needed 04/20 completed Prescrib ed Elsewher e: Yes Loca tion: Nelia hemphill [facility] odify By: bruna swanson DateTime : 02/05/20 16 10:30:00 AM Not Available Not Available Not Available cyclobenz aprine 5 mg tablet 5 MG ORALLY THREE TIMES A DAY NEEDED FOR MUSCLE SPASM 07/20 completed Not Available Not Available Not Available calcium active Not Available Not Avail able Not Available iron active Not Available Not Availa ble Not Available Flexeril 08/01 completed Not Available Not Available Not Available cholecalc iferol (vitamin D3) 50 mcg (2,000 unit) capsule TAKE TWO SOFTGELS (100 MCG) ORALLY DAILY active Not Available Not Available No t Available OptiChamb er Barbi [facility] spacer DIRECTED 07/20 completed Not Available Not Available Not Available Multi Vitamin 07/20 completed Not Available Not Available Not Available Vitals Date Recorded Body height Body mass index (BMI) Body weight Systolic blood pressure Diastolic blood pressure Provider Name and Address Organization Details Last Updated DateTime 08/01/2021 157.48 cm 24 kg/m2 50440.6 g 125 mm[Hg] 73 mm[Hg] [facility] 2 11:56:18 Date Recorded Body height Body mass index (BMI) Body weight Systolic blood pressure Diastolic blood pressure Provider Name and Address Organization Details Last Updated DateTime 08/19/2021 157.48 cm 23.2 kg/m2 77434.23 g 134 mm[Hg] 78 mm[Hg] [facility] 2 09:34:10 Date Recorded Body height Body mass index (BMI) Body weight Systolic blood pressure Diastolic blood pressure Provider Name and Address Organization Details Last Updated DateTime 07/21/2023 157.48 cm 23.6 kg/m2 06384.42 g 119 mm[Hg] 79 mm[Hg] Zaria Preston [facility] 4 09:29:55 Date Recorded Body height Body mass index (BMI) Body weight Systolic blood pressure Diastolic blood pressure Provider Name and Address Organization Details Last Updated DateTime 07/12/2019 1920.24 cm 0.2 kg/m2 63132.79 g 135 mm[Hg] 57 mm[Hg] Isabela Lacey [facility] 0 10:39:48 Social History Question Answer Notes LastModified by Organizat ion Details LastModified Time Tobacco Smoking Status Never Smoker Not Available [employer] 01/10/2020 03:28:11 Are You Blind Or Do You Have Difficulty Seeing? No Information n ot available 08/01/2021 In The 14 Days Before Symptom Onset, Have You Had Close Contact With A Laboratory-confirm ed COVID-19 While That Case Was Ill? No Information n ot available 07/21/2023 In The 14 Days Before Symptom Onset, Have You Had Close Contact With A Person Who Is Under Investigation For COVID-19 While That Person Was Ill? No Information not available 07/21/2023 Have You Been To An Area Known To Be High Risk For COVID-19? No Information not available 07/21/2023 Are You Deaf Or Do You Have Serious Difficulty Hearing? No Information not available 08/01/2021 What Type Of Diet Are You Following? REGULAR Information n ot available 08/01/2021 Sex: Unknown Functional Status Question Answer Note LastModified by Organizat ion Details LastModified Time Do you have difficulty walking or climbing stairs? No Information not available 08/01/2021 Are you able to walk? YESWOREST Information not available 08/01/2021 Are you able to care for yourself? Yes Information not available 08/01/2021 Do you have difficulty dressing or bathing? No Information not available 08/01/2021 What is your exercise level? Occasional Information not available 08/01/2021 Mental Status None recorded. Family History Relationship Description Onset Age of this Age Resolved Age Notes LastModified by Organization Details LastModified Time Mother Diabetes mellitus [email or web address] Not available 2019 15:27:32 Mother Hypertensive disorder [email or web address] Not available 2019 15:27:56 Mother Disorder of thyroid gland [email or web address] Not available 2019 15:28:12 Mother Anemia [email or web address] Not available 15:28:19 Father Diabetes mellitus [email or web address] Not available 2019 15:27:32 Paternal Uncle Diabetes mellitus [email or web address] Not available 2019 15:27:32 Paternal Uncle Hypertensive disorder [email or web address] Not available 2019 15:27:56 Brother Hypertensive disorder [email or web address] Not available 2019 15:27:56 Sister Malignant tumor of breast [email or web address] Not available 2023 09:50:40 Notes:Brother: Hypertension Father: Diabetes mellitus Mother: Anemia, Diabetes mellitus, Thyroid disease, Hypertension Paternal uncle: Hypertension, Diabetes mellitus Medical History Condition Response Anemia Y Gynecological History Statement/Question Response Abnormal Pap N Date of Last Mammogram Date of LMP On BCP's at Conception? N Was last menstrual period normal N STIs/STDs N HPV Vaccine N Current Control Method Hysterectom y If Post Menopausal, Age at Menopause 51 Are cycles usually normal N Date of Last Colonoscopy Sexually Active? Y Menses Monthly N Date of DEXA bone scan Age of first menstrual cycle 13 Date of Last Pap Smear 04/20/2018 Sexual Problems? N LMP Unknown Obstetrics History GPAL:G 3 P 0 0 0 0 Past Encounters Encounter ID Performer Location Encounter Start Date Encounter Closed Date Diagnosis/Indication Diagnosis SNOMED-CT Code Diagnosis ICD10 Code Diagnosis Note [id number] Jessica Nuno [place] [address] [address] 07/07/2019 15:36:54 07/07/2019 16:21:49 Routine gynecologic examination done 5655380256 9101 Z01.419 Take Calcium with Vitamin D 12-1500mg daily. Do monthly self breast exams. It is advised to get annual flu shot in the fall and she could obtain at [facility] or [facility] care clinic. If you haven't received the Tdap vaccine in the last 10 years you should obtain one as well. Have mammogram yearly, bone density every 2-3 years and colonoscop y every 5-10 years depending on findings and history. Engage in daily exercise of low impact aerobic exercise 45-60 minutes 4-5 times weekly. Avoid tobacco and illicit drugs as well as using moderation with alcohol intake less than 1-2 8 oz beverages daily. This lifestyle behavior pattern will lead to less health conditions and longer life span. If BMI greater than 25 weight watchers or dietary consult advised. Questions have been answered. Patient appears to understand instructio ns, but if you have any further questions call or respond to this email Pap/HPV d/c due to [facility] for fibroids; kept ovaries CBE done Mammo ordered Declined STD screen SBE encourated . Colonoscop y UTD-PCP Bone health-see 's bone specialist in [place]. RTO x 1yr or option to go to PCP yearly CBE/Mammo Urine +1 blood but see's a urologist; uptodate on her visits; diagnosed with microscopi c hematuria evaluated with cystoscopy and wnl. Will f/u with them. Skin tag katey-anal area she would like removed. She will schedule appt for this prn. [id number] [address] [address] 07/12/2019 10:27:54 07/12/2019 10:59:59 Anal skin tag [id number] K64.4 Patient presented today for removal of katey-anal skin tag which went well today. Post-op instructkristofer reagan reviewed. She is to return if there are any issues such as infection. We reviewed s/sx's and when to contact office. all questions were answered to patient satisfacti on. Time spent in visit is a total of 26 mins with at least 50% of visit consisting of counseling and review of plan of care. [id number] Ofelia Singh [place] [facility] [address] [address] 08/01/2021 11:41:46 08/01/2021 13:15:43 Family history of breast cancer 031188669 Z80.3 Screening for malignant neoplasm of breast 372619183 Z12.39 Pain in pelvis 38614052 R10.2 Gynecologi c examination 94014774 Z01.419 Take Calcium with Vitamin D 12-1500mg daily. Do monthly self breast exams. It is advised to get annual flu shot in the fall and she could obtain at [facility] or [facility] care clinic. If you haven't received the Tdap vaccine in the last 10 years you should obtain one as well. Have mammogram yearly, bone density every 2-3 years and colonoscop y every 5-10 years depending on findings and history. Engage in daily exercise of low impact aerobic exercise 45-60 minutes 4-5 times weekly. Avoid tobacco and illicit drugs as well as using moderation with alcohol intake less than 1-2 8 oz beverages daily. This lifestyle behavior pattern will lead to less health conditions and longer life span. If BMI greater than 25 weight watchers or dietary consult advised. Questions have been answered. Patient appears to understand instructio ns, but if you have any further questions call or respond to this email WWENo hx of abnormal papsHyster ectomy 10 years ago for fibroids/A UB, non-cancer ous reason.No paps neededHas been having bilateral lower pelvic pain for the past 2-3 months. Pains come and go. Will order pelvic u/s to assess ovaries. Having normal daily bowel movements, no urinary symptoms.S ees a urologist for microscopi c hematuriaS ees a bone specialist for osteoporsi s, on alendronat eNeeds to schedule her mammogram, order givenHer sister was diagnosed with breast cancer last year at around age 60. We discussed genetic testing, she would like to have this done. Invitae order given to patient.Co lonscopy UTD with PCPSTI testing declinedRT C for pelvic u/s and u/s f/u Time spent with the patient was over 35 minutes [id number] Soo Alvarenga [place] [address] [address] 08/15/2021 12:28:36 08/15/2021 14:15:09 Pain in pelvis 81878995 R10.2 [id number] KATHERINE Andres [place] [address],[facility] [place] [address] 08/19/2021 09:26:14 08/19/2021 10:40:26 Pain in pelvis 22456372 R10.2 Here today to discuss u/s results. Was having bilateral pelvic pain on and off for 2-3 months. Pain has now resolved on its own.Pelvic u/s normal - normal ovaries, no free fluid. Hx of hysterecto my noted.Sinc e pain has resolved we discussed monitoring if it happens again, to RTC if symptoms come back.We discussed genetic testing result - variant of uncertain significan ce noted. We discussed this as something that is not completely understood at this time, number given for invitae genetic counseling . I encouraged her to have the free genetic counseling appointmen t to learn more about this. Patient agrees Time spent in visit is a total of 25 mins with at least 50% of visit consisting of counseling and review of plan of care. [id number] KATHERINE Andres [place] [address] [address] 07/21/2023 09:25:28 07/21/2023 09:59:55 Gynecologic examination 06361890 Z01.419 WWEpaps d/c'd unless otherwise indicatedd eclined STI screenmamm ogram due next 5col onoscopy UTD/PCP ordersdexa UTD/PCP managesrou paige labs UTD/PCPRTC in 1 yr or sooner if needed Take Calcium with Vitamin D daily. Do monthly self breast exams. It is advised to get annual flu shot in the fall and she could obtain at [facility] or [facility] care clinic. If you haven't received the Tdap vaccine in the last 10 years you should obtain one as well. Have mammogram yearly, bone density every 2-3 years and stay up to date on colon CA screening. Engage in regular exercise. Avoid tobacco and illicit drugs. This lifestyle behavior pattern will lead to less health conditions and longer life span. If BMI greater than 25 dietary consult advised. Questions have been answered. Patient appears to understand instructio ns, but if you have any further questions call or respond to this email Screening for malignant neoplasm of breast [id number] Z12.39 Health Concerns Section Related Observation LastModified by Organization Detai ls LastModified Time None Recorded Concern Status LastModified by Organization Details LastModified Time None Recorded Advance Directives Directive None Recorded Payers Encounter Date Sequence Insurance Name Policy Number Policy Yung Covered Member ID Yung Member ID Guarantor Name 07/12/2019 1 [employer] [address] ([facility]) Butch Ray [id number] Amita Ray 08/01/2021 1 [employer] [address] ([facility]) Butch Ray [id number] Amita Ray 08/15/2021 1 [employer] [address] ([facility]) Butch Ray [id number] Amita Ray 08/19/2021 1 [employer] [address] ([facility]) Butch Ray [id number] Amita Ray 07/21/2023 1 [employer] [place] [id number] Butch Ray [id number] Amita Ray Notes Date Note Type Note Provider Name and Address Organization Details Recorded Time 07/12/2019 text/html Patient presents today for removal of katey-anal skin tag which has been bothering her when she wipes. KATHERINE Chun- [address], [place], [address], [facility] 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 [employer] Post-MenopausalReport ed bypatient.Menopausal Symptoms:no menopausal symptoms; normal vaginal lubrication Vaginal Bleeding:history of menopause having occurred; no history of post menopausal bleeding Urinary Symptoms:no hematuria; no incontinence; no nocturia; no urinary frequency Vulva:no genital lesion; no vulvar atrophy Vagina:normal vaginal discharge; no vaginal atrophy Breast:no breast lump; no nipple discharge; no breast pain Sexual Complaints:no sexual complaints Psychological Symptoms:no depression; no anxiety Preventive Measures:encourage regular mammograms starting age 40; encourage self breast examination; encourage regular exercise; encourage no tobacco use; needs to schedule mammogram KATHERINE Andres [address], [place], [address], [facility] 08/01/2021 12:40:13 08/19/2021 text/html Here to discuss u/s results [address], [place], [address], [facility] 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 Post-MenopausalReport ed bypatient.Menopausal Symptoms:no menopausal symptoms; normal vaginal lubrication Vaginal Bleeding:history of menopause having occurred; no history of post menopausal bleeding Urinary Symptoms:no hematuria; no incontinence; no nocturia; no urinary frequency Vulva:no genital lesion; no vulvar atrophy Vagina:normal vaginal discharge; no vaginal atrophy Breast:no breast lump; no nipple discharge; no breast pain Sexual Complaints:no sexual complaints Psychological Symptoms:no depression; no anxietyNotes:63yo WWENo hx of abnormal papsHysterectomy 10 years ago for fibroids/AUB, non-cancerous reasonmammogram UTD olonoscopy UTD/PCP ordersdexa UTD 2022, PCP manages (was seeing bone specialist in [facility] but states now PCP is managing. No longer on alendronate, takes calcium/vitamin D per pt) [address], [place], [address], [place] [facility] 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 Status 07/07/19 20 1 CLOSED Fetus Data First Name Last Name Admitted to NICU Weight (g) Sex Living Outcome Pediatric Complications Fetus ID Race Codes Race Delivery Type 999 Brandon Calculation Initial Brandon Date Initial Exam Date Initial Exam Provider Initial Ultrasound Date Last Menstrual Period Date Ultra Sound Weeks Gestation 0 Eighteen To Twenty Week Brandon Update Ultra Sound Date Fundal Height At Umbil Quickening Date Ultra Sound Latest Weeks Gestation Final Brandon Confirmed By Final Brandon Confirmed Date Final Brandon Date Ultra Sound Latest Days Gestation 0 0 Menstrual History Last Menstrual Date Menses Monthly On Bcp Conception Prior Menses Frequency Hcg Plus Date Menarche Onset Age Delivery Information Delivery Date Delivery Type Labor Anesthesia Weeks Gestation Incision Type Labor Labor Length Hrs Delivered By Post Complications Tubal Sterilization Discharge Date Comments 5 Discharge Information Feeding Method Contraceptive Method Maternal HG B and HCT Levels Ob Episode Information Episode Created Date Number of Fetuses Patient Bloodtype Patient rh Status Prepregnancy Weight lbs Domestic Partner Domestic Partner Phone Father Name Elevator Mechanic Apprentice Status 07/07/19 20 1 CLOSED Fetus Data First Name Last Name Admitted to NICU Weight (g) Sex Living Outcome Pediatric Complications Fetus ID Race Codes Race Delivery Type 998 Brandon Calculation Initial Brandon Date Initial Exam Date Initial Exam Provider Initial Ultrasound Date Last Menstrual Period Date Ultra Sound Weeks Gestation 0 Eighteen To Twenty Week Brandon Update Ultra Sound Date Fundal Height At Umbil Quickening Date Ultra Sound Latest Weeks Gestation Final Brandon Confirmed By Final Brandon Confirmed Date Final Brandon Date Ultra Sound Latest Days Gestation 0 0 Menstrual History Last Menstrual Date Menses Monthly On Bcp Conception Prior Menses Frequency Hcg Plus Date Menarche Onset Age Delivery Information Delivery Date Delivery Type Labor Anesthesia Weeks Gestation Incision Type Labor Labor Length Hrs Delivered By Post Complications Tubal Sterilization Discharge Date Comments 7 Discharge Information Feeding Method Contraceptive Method Maternal HG B and HCT Levels Ob Episode Information Episode Created Date Number of Fetuses Patient Bloodtype Patient rh Status Prepregnancy Weight lbs Domestic Partner Domestic Partner Phone Father Name Elevator Mechanic Apprentice Status 07/07/19 20 1 CLOSED Fetus Data First Name Last Name Admitted to NICU Weight (g) Sex Living Outcome Pediatric Complications Fetus ID Race Codes Race Delivery Type 1000 Brandon Calculation Initial Brandon Date Initial Exam Date Initial Exam Provider Initial Ultrasound Date Last Menstrual Period Date Ultra Sound Weeks Gestation 0 Eighteen To Twenty Week Brandon Update Ultra Sound Date Fundal Height At Umbil Quickening Date Ultra Sound Latest Weeks Gestation Final Brandon Confirmed By Final Brandon Confirmed Date Final Brandon Date Ultra Sound Latest Days Gestation 0 0 Menstrual History Last Menstrual Date Menses Monthly On Bcp Conception Prior Menses Frequency Hcg Plus Date Menarche Onset Age Delivery Information Delivery Date Delivery Type Labor Anesthesia Weeks Gestation Incision Type Labor Labor Length Hrs Delivered By Post Complications Tubal Sterilization Discharge Date Comments 6 Discharge Information Feeding Method Contraceptive Method Maternal HG B and HCT Levels
--- OUTSIDE RECORDS SUMMARY | 2024-04-14 15:38 | XMS_ITS | Referral Summary ---
Author Organization [facility] Address [address] [place] [address] Care Team Providers Care Switchbox Assembler Name Role Phone Charlie Alfredo MD Primary [...] joint replacement surgery 07/15/2017 Prophylactic antibiotic 07/15/2017 Social History Tobacco Use Types Packs/Day Years Used Date Smoking Tobacco: Former Cigarettes Smokeless Tobacco: Never Alcohol Use Standard Drinks/Week Comments Yes 0 (1 standard drink = 0.6 oz pur e alcohol) social Comments No Sex and Gender Information Value Date Recorded Sex Assigned at Not on file Legal Sex Female 1:24 AM FIREBREAK CUTTER Gender Identity Not on file Sexual Orientation [...] (127 lb 12.8 oz) 01/10/2020 9:33 AM FIREBREAK CUTTER Height 157.5 cm (5' 2 ) 01/10/2020 9:33 AM FIREBREAK CUTTER Body Mass Index 23.37 01/10/2020 9:33 AM FIREBREAK CUTTER Plan of Treatment Not on file Medical Devices Implanted Type Area Garage Manager Device Identifier Shelf Expiration Date Model / Serial / Lot [employer] Ringloc+ 50mm Limit Hole Shell Hip Acetabular - [id number] Implanted:Qty: 1 on 08/19/2017 by Ferdinand Ascencio MD at [facility] Right: Hip [employer] [id number] 12/24/2026 [id number] / / [id number] [employer] Ringloc 36mm High Wall Liner Hip +3mm 23 Acetabular E-Poly - [id number] Implanted:Qty: 1 on 08/19/2017 by Ferdinand Ascencio MD at [facility] Right: Hip [employer] [id number] 06/25/2022 [id number] / / [id number] [employer] 6.5mm 45mm Low Profile Screw Hip Acetabular Cancellous Dome Bone - [id number] Implanted:Qty: 1 on 08/19/2017 by Ferdinand Ascencio MD at [facility] Right: Hip [employer] 08/02/2026 [id number] / / [id number] [employer] Echo Bi-Metric 12mm 140mm Noncollar Full Proximal Profile Press - [id number] Implanted:Qty: 1 on 08/19/2017 by Ferdinand Ascencio MD at [facility] Right: Hip [employer] [id number] 10/30/2025 [id number] / / [id number] [employer] G7 Type 1 Sleeve Hip Standard Offset Taper Centering Titanium - [id number] Implanted:Qty: 1 on 08/19/2017 by Ferdinand Ascencio MD at [facility] Right: Hip [employer] [id number] 11/28/2026 [id number] / / [id number] Head Femoral G7 Biolox Delta Biolox Option Od36 Mm Hip - [id number] Implanted:Qty: 1 on 08/19/2017 by Ferdinand Ascencio MD at [facility] Right: Hip [employer] [id number] 09/11/2026 [id number] / / [id number] Procedures Procedure Name Priority Date/Time Associated Diagnosis Comments DEXA AXIAL SKELETON BONE DENSITY 1 OR MORE SITES Schedule Routine, Read Routine (OP Routine) 01/10/2020 10:11 AM FIREBREAK CUTTER Osteoporosis screening from Last 3 Months or Most Recently Relevant to Health Maintenance Results * Dexa Axial Skeleton Bone Density 1 or 2 Site (01/10/2020 10:11 AM FIREBREAK CUTTER) Anatomical Region Laterality Modality Body N/A Radiographic Yaritza ging Narrative 01/10/2020 10:18 AM FIREBREAK CUTTER Patient Name: Raffy Teran Date of : 1960 Date of scan: 01/10/2020 Bone mineral density was performed on a [employer] Discovery Densitometer. Machine Cross-calibration and Precision studies [...] mineral density scan were prepared by Demi Eddy) MANUEL who is accredited by the International Society of Clinical Densitometry. The overall patient assessment and scan interpretation were performed by Chelo Colin M.D. who is certified by the International Society of Clinical Densitometry. [id number] Chelo Colin MD IMG DXA PROCEDURES Final Resu lt from Last 3 Months or Most Recently Relevant to Health Maintenance Insurance [facility] [employer] SIG [id number] [facility] AETNA [facility] MEDICARE Advance Directives For more information, please contact: [phone] * Full Code (Latest Code Status on File) Date Activated Date Inactivated Comments 08/24/2017 11:03 PM * Full Code Date Activated Date Inactivated Comments 08/24/2017 7:07 AM 08/24/2017 11:03 PM * Full Code Date Activated Date Inactivated Comments 08/19/2017 11:18 AM 08/21/2017 3:16 PM Care Teams Switchbox Assembler Relationship Specialty Start Date End Date Charlie Alfredo MD PCP - General 06/30/17
--- OUTSIDE RECORDS SUMMARY | 2024-04-14 15:39 | XMS_ITS | Referral Summary ---
Author Organization [facility] Address [address] [place] [address] Care Team Providers Care Associate Professor Of Biostatistics Name Role Phone Unavailable Primary Care Provider Unavailabl e Source Comments [facility],non-owned Affiliates and Associated Physician Practices is amultiple site organization consisting of ambulatory clinics and hospital sitesin [place], [place], [place] and [place]. This disclosure is being madepursuant to the Care Everywhere program and may not contain all information available regarding this patient. Last updated 17.[facility] Social History Tobacco Use Types Packs/Day Years Used Date Smoking Tobacco: Never Assessed Sex and Gender Information Value Date Recorded Sex Assigned at Not on file Gender Identity Not on file Sexual Orientation Not on file Plan of Treatment Not on file Amita Ray Personal/Family Self 1960
--- OUTSIDE RECORDS SUMMARY | 2024-04-14 15:39 | XMS_ITS | Clinical Summary ---
Author Organization [facility] Address [address] [place] [address] Care Team Providers Care Mfts Name Role Phone Unavailable Primary Care Provider Unavailabl e Source Comments [facility],non-owned Affiliates and Associated Physician Practices is amultiple site organization consisting of ambulatory clinics and hospital sitesin [place], [place], [place] and [place]. This disclosure is being madepursuant to the Care Everywhere program and may not contain all information available regarding this patient. Last updated 17.[facility] Social History Tobacco Use Types Packs/Day Years Used Date Smoking Tobacco: Never Assessed Sex and Gender Information Value Date Recorded Sex Assigned at Not on file Gender Identity Not on file Sexual Orientation Not on file Plan of Treatment Health Maintenance Due Date Last Done Comments BONE DENSITY TESTING 1960 COLOGUARD (AGES 45-75) - COL ON CA SCREENING 1960 COLON MONITORING 1960 COLONOSCOPY - COLON CA SCREENING 1960 CT COLONOGRAPHY - COLON CA SCREENING 1960 Colorectal Cancer Screening 1960 FIT - COLON CA SCREENING 1960 FLEX SIG - COLON CA SCREENING 1960 LIPID TESTING 1960 MAMMOGRAM 1960 HEPATITIS C SCREENING 01/08/1976 DTAP/TDAP/TD VACCINES (1 - Tdap) 1977 PNEUMOCOCCAL VACCINE 50+ (1 of 1 - PCV) 01/13/2008 ZOSTER VACCINE (1 of 2) 01/13/2008 COVID-19 VACCINE ( - 2023-2 5 season) 2023 INFLUENZA VACCINE (#1) 2023 DEPRESSION SCREENING 03/09/2024 Respiratory Syncytial Virus (RSV) Vaccine Pt: or over 60 yrs (1 - 1-dose 75+ series) 2033 HEPATITIS B VACCINE Aged Out No longe r eligible based on patient's age to complete this topic HIB VACCINE Aged Out No longer eligi ble based on patient's age to complete this topic HPV VACCINE Aged Out No longer eligi ble based on patient's age to complete this topic MENINGOCOCCAL (Group B) VACCINE Aged Out No longer eligible based on patient's age to complete this topic MENINGOCOCCAL VACCINE Aged Out No leeroy katty eligible based on patient's age to complete this topic Amita Ray Personal/Family Self 1960
--- OUTSIDE RECORDS SUMMARY | 2024-04-14 15:39 | XMS_ITS | Encounter Summary ---
Author Organization [facility] Address [address] [place] [address] Care Team Providers Care Principal System Software Engineer Name Role Phone Unavailable Primary Care Provider Unavailabl e Encounter Details Date Type Department Care Team (Late st Contact Info) Description 12/16/[address] [facility] - DermPath Lab [address] [place] [id number] Aniya Logan BURR MACHINE OPERATOR-PLANER OFF BEARER [address] [place] [address] Social History Tobacco Use Types Packs/Day Years Used Date Smoking Tobacco: Never Assessed Sex and Gender Information Value Date Recorded Sex Assigned at Not on file Gender Identity Not on file Sexual Orientation Not on file documented as of this encounter Plan of Treatment Not on file documented as of this encounter Procedures Procedure Name Priority Date/Time Associated Diagnosis Comments DERMATOPATHOLOGY Routine 12/16/2023 1:51 PM CDT documented in this encounter Results * DERMATOPATHOLOGY (12/16/2023 1:51 PM CDT) Case Report Dermatopathology Report Case: [id number] Authorizing Provider: Aniya Logan, Collected: 12/16/2023 01:51 PM BURR MACHINE OPERATOR-PLANER OFF BEARER Ordering Location: [facility] - Received: 12/17/2023 12:27 PM DermPath Lab Pathologist: Daniela Duarte MD Specimens: A) - Skin, left back B) - Skin, mid back 12:38 PM CDT DERMATOPATHOLOGY LABORATORY Final Diagnosis Specimen A. SKIN, left back: SEBORRHEIC KERATOSIS (L82.1) Specimen B. SKIN, mid back: LENTIGINOUS MELANOCYTIC NEVUS, JUNCTIONAL TYPE, IRRITATED AND INFLAMED (D22.5) (see microscopic description and comment) 12:38 PM [facility] DERMATOPATHOLOGY LABORATORY Clinical History A-B: R/O Atypia 12:38 PM [facility] DERMATOPATHOLOGY LABORATORY Gross Description Specimen A: Received is one formalin filled container labeled with the patient's name and designated left back. The specimen consists of a shave biopsy measuring 10x7x1 mm. Jar 0. Specimen B: Received is one formalin filled container labeled with the patient's name and designated mid back. The specimen consists of a shave biopsy measuring 9x9x1 mm. Jar 0. 12:38 PM [facility] DERMATOPATHOLOGY LABORATORY Microscopic Description Specimen A. SKIN, left back: Sections show an acanthotic lesion composed of relatively uniform keratinocytes. There is hyperkeratosis and pseudo horn cysts formation. Specimen B. SKIN, mid back: This is a junctional nevus. There is melanin pigment in the stratum corneum. There is a lentiginous proliferation of melanocytes between nests of cells along the dermal-epidermal junction. There is underlying fibroplasia of the papillary dermis. (Junctional Rodolfo's Nevus) There is a lymphohistiocytic infiltrate within the dermis. This lesion is present at the margin of the specimen. COMMENT: If this specimen is sampled from a larger lesion, these findings may not be branch sales and service representative of the entire lesion. Clinicopathologic correlation is recommended. 12:38 PM [facility] DERMATOPATHOLOGY LABORATORY Disclaimer An external and internal positive and negative controls are appropriate for the histochemical, immunohistochemical and immunofluorescence stain(s) in this case (if any), except where stated explicitly. The performance characteristics of the stain(s) cited in this report were developed and its performance characteristic determined by the Dermatopathology Laboratory at [facility], directed by Dr. Noah Rosas. These tests need not be, and therefore are not, approved by the [place] Food and Drug Administration. The tests are used for clinical purposes. Billing Codes Specimen Charges Stain Charges 28805 47542 1 1 12:38 PM [facility] DERMATOPATHOLOGY LABORATORY Embedded Images 12:38 PM [facility] DERMATOPATHOLOGY LABORATORY Pathology/Cytology TISSUE SPECIMEN FROM SKIN / Unknown 12/16/2023 1:51 PM CDT 12/17/2023 12:27 PM CDT Miscellaneous samples (specimen) TISSUE SPECIMEN FROM SKIN / Unknown 12/16/2023 1:51 PM CDT 12/17/2023 12:27 PM CDT Aniya Zelayacarolann BURR MACHINE OPERATOR-PLANER OFF BEARER LAB - PATH OLOGY/CYTOLOGY ORDERABLES DERMATOPATHOLOGY LABORATORY [facility] - Department of Dermatology [facility] Medicine [address] [place] [address], [address] [phone] documented in this encounter Visit Diagnoses Not on filedocumented in this encounter
--- OUTSIDE RECORDS SUMMARY | 2024-04-14 15:39 | XMS_ITS | Patient Health Summary ---
Author Organization [facility] Address [address] [place] [address] Care Team Providers Care Flyer Builder Name Role Phone Unavailable Primary Care Provider Unavailabl e Note from [facility],non-owned Affiliates and Associated Physician Practices is amultiple site organization consisting of ambulatory clinics and hospital sitesin [place], [place], [place] and [place]. This disclosure is being madepursuant to the Care Everywhere program and may not contain all information available regarding this patient. Last updated 17.[facility] [employer] Social History Tobacco Use Types Packs/Day Years Used Date Smoking Tobacco: Never Assessed Sex and Gender Information Value Date Recorded Sex Assigned at Not on file Gender Identity Not on file Sexual Orientation Not on file Procedures * DERMATOPATHOLOGY(Performed 12/16/2023) Results * DERMATOPATHOLOGY (12/16/2023 1:51 PM CDT) Case Report Dermatopathology Report Case: [id number] Authorizing Provider: Aniya Logan, Collected: 12/16/2023 01:51 PM FLOOR TECHNICIAN-FINISHING AREA SUPERVISOR Ordering Location: [facility] - Received: 12/17/2023 12:27 PM DermPath Lab Pathologist: Daniela Duarte MD Specimens: A) - Skin, left back B) - Skin, mid back 12:38 PM CDT DERMATOPATHOLOGY LABORATORY Final Diagnosis Specimen A. SKIN, left back: SEBORRHEIC KERATOSIS (L82.1) Specimen B. SKIN, mid back: LENTIGINOUS MELANOCYTIC NEVUS, JUNCTIONAL TYPE, IRRITATED AND INFLAMED (D22.5) (see microscopic description and comment) 12:38 PM CDT DERMATOPATHOLOGY LABORATORY Clinical History A-B: R/O Atypia 12:38 PM T DERMATOPATHOLOGY LABORATORY Gross Description Specimen A: Received [...] measuring 9x9x1 mm. Jar 0. 12:38 PM [facility] DERMATOPATHOLOGY LABORATORY Microscopic Description Specimen A. SKIN, [...] larger lesion, these findings may not be business services representative of the entire lesion. Clinicopathologic correlation is recommended. 12:38 PM [facility] DERMATOPATHOLOGY LABORATORY Disclaimer An external and internal positive and negative controls are appropriate for the histochemical, immunohistochemical and immunofluorescence stain(s) in this case (if any), except where stated explicitly. The performance characteristics of the stain(s) cited in this report were developed and its performance characteristic determined by the Dermatopathology Laboratory at [facility], directed by Dr. Noah Rosas. These tests need not be, and therefore are not, approved by the [place] Food and Drug Administration. The tests are used for clinical purposes. Billing Codes Specimen Charges Stain Charges 87420 [id number] 1 1 12:38 PM CDT DERMATOPATHOLOGY LABORATORY Embedded Images 12:38 PM T DERMATOPATHOLOGY LABORATORY Pathology/Cytology TISSUE SPECIMEN FROM SKIN / Unknown 12/16/2023 1:51 PM CDT 12/17/2023 12:27 PM CDT Miscellaneous samples (specimen) TISSUE SPECIMEN FROM SKIN / Unknown 12/16/2023 1:51 PM CDT 12/17/2023 12:27 PM CDT Aniya Wade Doreen CINTRONN-FINISHING AREA SUPERVISOR LAB - PATH OLOGY/CYTOLOGY ORDERABLES Performing Organization Address City/State/[facility] Co de Phone Number DERMATOPATHOLOGY LABORATORY [facility] - Department of Dermatology [facility], [address] Floor [address] [phone]
--- NOTE | 2024-04-14 15:45 | ECG_ITS ---
Test Date: 2024-04-14 15:51:13 Measurements Intervals [place] Rate: 79 P: 12 AL: 104 QRS: 10 QRSD: 98 T: 48 QT: 344 QTc: 396 Interpretive Statements SINUS RHYTHM LEFT VENTRICULAR HYPERTROPHY BASELINE ARTIFACT- I, II, III, AVR, AVL, AVF BORDERLINE ECG Compared to ECG 11/08/2023 16:35:25 NO SIGNIFICANT CHANGE Electronically Signed On 04-14-2024 16:20:49 CERTIFIED NUCLEAR MEDICINE TECHNOLOGIST by Guzman Kam D.O.
[2024-04-14 15:56] VITALS: BP 149/78; PULSE 85; RESP 15; TEMP 36.5; O2SAT 98
[2024-04-14 16:12] LABS: Basophils Absolute Auto 0.1 K/mm3 (0.0-0.1); Basophils Percent Auto 0.7 % (0.2-1.2); Eosinophils Absolute Auto 0.2 K/mm3 (0-0.3); Eosinophils Percent Auto 3.5 % (0-4.4); Hematocrit 41.6 % (37.0-47.0); Hemoglobin 13.7 g/dL (12.0-15.0); Immature Granulocyte Absolute 0.02 K/mm3 (0.00-0.031); Immature Granulocyte Percent A 0.3 % (0-0.5); Lymphocytes Absolute Auto 1.84 K/mm3 (0.9-3.2); Lymphocytes Percent Auto 26.8 % (18.3-44.2); Mean Corpuscular HGB Conc 32.9 g/dl (32-36); Mean Corpuscular Hemoglobin 30.2 pg (26-34); Mean Corpuscular Volume 91.8 fl (80-100); Mean Platelet Volume 9.6 fl (7.4-10.4); Monocytes Absolute Auto 0.5 K/mm3 (0.1-0.6); Monocytes Percent Auto 7.9 % (2.6-8.5); Neutrophils Absolute Auto 4.2 K/mm3 (1.3-6.7); Neutrophils Percent Auto 60.8 % (45.5-73.1); Platelet Count Result 328 k/mm3 (150-375); Red Blood Count 4.53 M/mm3 (4.2-5.4); Red Cell Distribution Width 13.1 % (11.5-14.5); White Blood Count 6.9 K/mm3 (4.5-10.0)
[2024-04-14 16:22] LABS: Prothrombin Time 13.3 Seconds (11.1-14.7)
[2024-04-14 16:23] LABS: Partial Thromboplastin Time 25.1 Seconds (22.3-36.8)
[2024-04-14 16:27] LABS: Alanine Aminotransferase 25 U/L (6-35); Albumin Level 4.7 g/dL (3.5-5.1); Alkaline Phosphatase 92 U/L (38-126); Anion Gap 10 mmol/L (4-12); Aspartate Amino Transferase 26 U/L (14-36); Bilirubin,Total 0.4 mg/dL (0.2-1.3); Blood Urea Nitrogen 16 mg/dL (7-17); Calcium 11.5 mg/dL (8.4-10.2); Carbon Dioxide 25 mmol/L (22-30); Chloride 106 mmol/L (98-107); Estimated CRCL calculation 63 ml/min; Estimated Glomerular Filt Rate > 60; Glucose 112 mg/dL (65-110); Lipase 88 U/L (23-300); Potassium 4.6 mmol/L (3.4-5.0); Sodium 141 mmol/L (137-145)
[2024-04-14 16:38] LABS: Troponin I < 0.012 ng/mL (0.000-0.034)
--- NOTE | 2024-04-14 16:56 | ED_ITS ---
HPI - Chest Pain General Chief Complaint: Chest Pain <JOSE DE JESUS Box Filed: 04/14/24 17:11> Stated Complaint: chest pain, back pain <JOSE DE JESUS Box Filed: 04/14/24 17:11> Time Seen by Provider: 04/14/24 16:56 <JOSE DE JESUS Box Last Filed: 04/14/24 17:11> Focused HPI: Patient is a 64 y/o female who presents to the ED with c/o back and chest pain. Patient reports a long history of chronic back pain. Typically pain is present in her lower back. She has received epidurals in the past for her pain. Was supposed to receive epidural on Thursday, but did not have new insurance approved. Is supposed to see neurosurgeon next week. Also sees pain management and has an appointment for Thursday next week. Is not currently on any pain medications. Has been taking ibuprofen and methocarbamol, but states this only provides minimal relief. Pain is now more in her upper back between her shoulder blades and radiating through to her chest. Reports feeling short of breath due to the pain. States she could not handle the pain anymore today which prompted her presented. Denies any injury. Denies numbness. Denies cough or cold symptoms. GENERAL: Tearful-appearing, well-nourished, and in no acute distress. HEAD: Normocephalic, atraumatic. CHEST: Clear to auscultation. ?No respiratory distress. HEART: Regular rate and rhythm.? MSK: Diffuse tenderness in upper thoracic region. No palpable bony deformities or step offs. NEURO: ?Alert and oriented x3. Patient screened in triage and initial orders placed.? ?Additional care and disposition to be based upon?diagnostic testing and treatment. <JOSE DE JESUS Box Filed: 04/14/24 17:11> Source: patient <JOSE DE JESUS Box Filed: 04/14/24 17:11> Mode of arrival: ambulatory <JOSE DE JESUS Box Filed: 04/14/24 17:11> Limitations: no limitations <RAUL BoxC - Last Filed: 04/14/24 17:11> Related Data Home Medications: Home Medications ?Medication ?Instructions ?Recorded ?Confirmed ?Last Taken ?Type methocarbamol 750 mg tablet 750 mg PO DAILY 10/16/23 10/30/23 Unknown History <JOSE DE JESUS Box Last Filed: 04/14/24 17:11> Allergies/Adverse Reactions: Allergies Allergy/AdvReac Type Severity Reaction Status Date / Time amoxicillin Allergy Mild Itching Verified 11/08/23 15:14 tramadol Allergy Mild Itching Verified 11/08/23 15:14 <JOSE DE JESUS Box Last Filed: 04/14/24 17:11> PMFSH Past Medical History Medical History: Medical History (Updated 04/14/24 @ 23:47 by Tc Briseno MD) Trigger finger of right hand Respiratory tract congestion with cough Chronic sinusitis Sinus congestion HLD (hyperlipidemia) Depression Cervical spondylosis Urinary incontinence <JOSE DE JESUS Box Last Filed: 04/14/24 17:11> Surgical History Surgical History: Surgical History History of right hip replacement History of cholecystectomy <JOSE DE JESUS Box Last Filed: 04/14/24 17:11> Family History Family History: Family History Mother Hypertension Cerebrovascular accident Family history of anemia Family history of hyperthyroidism Mother Patient's mother is , Onset Age: 85 Father Patient's father is , Onset Age: 72 <JOSE DE JESUS Box Last Filed: 04/14/24 17:11> Social History Social History: Social History Smoking status: Never smoker Smoking end date: 03/09/99 Alcohol intake: current Do You Feel Safe in your Home?: Yes Lack of Transportation: No Lack of Food: Never True Current Housing: I Have Housing Concerned About Future Housing: No Difficulty Paying Gas/Electric Bills: No Difficulty Paying for Meds: No Currently Unemployed: No Education: High School Diploma/GED Difficulty w/ Childcare or Family Care: No Gender identity (if verbalized by the patient): Female <Arleth Epstein PA-C - Last Filed: 04/14/24 17:11> Exam 2 Narrative: APPEARANCE: Patient is laying in bed, she is tearful, she appears anxious Head: atraumatic. EYES: EOMI, NOSE: Atraumatic NECK: Trachea midline RESPIRATORY: No increased rate of breathing, CTAB CARDIOVASCULAR: RRR, no peripheral edema, +2 pulses in all extremities ABDOMINAL: Non-distended MUSCULOSKELETAl: No obvious deformities straight leg positive on the left negative on right NEURO: Alert. Motor function, sensation intact on lower extremities. SKIN:: Warm, dry. Normal color PSYCHIATRIC: Normal affect <Tc Briseno MD - Last Filed: 04/14/24 23:47> Course Vital Signs Vital signs: Vital Signs Temperature 97.7 F 04/14/24 15:56 Pulse Rate 85 04/14/24 15:56 Respiratory Rate 15 04/14/24 15:56 Blood Pressure 149/78 H 04/14/24 15:56 Pulse Oximetry 98 04/14/24 15:56 Oxygen Delivery Room Air 04/14/24 15:56 Temperature 97.7 F 04/14/24 15:56 Pulse Rate 85 04/14/24 15:56 Respiratory Rate 15 04/14/24 15:56 Blood Pressure 149/78 H 04/14/24 15:56 Pulse Oximetry 99 04/14/24 23:24 Oxygen Delivery Room Air 04/14/24 23:24 <Arleth Epstein PA-C - Last Filed: 04/14/24 17:11> Vital Signs Temperature 97.7 F 04/14/24 15:56 Pulse Rate 85 04/14/24 15:56 Respiratory Rate 15 04/14/24 15:56 Blood Pressure 149/78 H 04/14/24 15:56 Pulse Oximetry 98 04/14/24 15:56 Oxygen Delivery Room Air 04/14/24 15:56 Temperature 97.7 F 04/14/24 15:56 Pulse Rate 85 04/14/24 15:56 Respiratory Rate 15 04/14/24 15:56 Blood Pressure 149/78 H 04/14/24 15:56 Pulse Oximetry 99 04/14/24 23:24 Oxygen Delivery Room Air 04/14/24 23:24 <Tc Briseno MD - Last Filed: 04/14/24 23:47> MDM - Chest Pain MDM Narrative Medical decision making narrative: MSE by DELIO in triage. <Arleth Epstein PA-C - Last Filed: 04/14/24 17:11> MSE by DELIO in triage. -Course: 64-year-old female history of 6 months of chronic back pain presenting with back pain radiating down her back into her legs and into her chest. Physical exam without neurologic deficits in the lower extremities or concerning findings history. Chest pain workup was ordered triage which was negative. Patient has an appointment with neurosurgeon next week. Patient was treated with Valium and [place] and discharged follow-up with her neurosurgeon. -DDX includes but is not limited to: Exacerbation of chronic pain, muscle strain, muscle spasm <Tc Briseno MD - Last Filed: 04/14/24 23:47> Lab Data Result diagrams: 04/14/24 16:06 04/14/24 16:06 <Arleth Epstein PA-C - Last Filed: 04/14/24 17:11> Labs: Lab Results 04/14/24 04/14/24 04/14/24 Range/Units 16:05 16:06 22:17 WBC 6.9 (4.5-10.0) K/mm3 RBC 4.53 (4.2-5.4) M/mm3 Hgb 13.7 (12.0-15.0) g/dL Hct 41.6 (37.0-47.0) % MCV 91.8 (80-100) fl MCH 30.2 (26-34) pg MCHC 32.9 (32-36) g/dl RDW 13.1 (11.5-14.5) % Plt Count 328 (150-375) k/mm3 MPV 9.6 (7.4-10.4) fl Immature Gran % (Auto) 0.3 (0-0.5) % Neut % (Auto) 60.8 (45.5-73.1) % Lymph % (Auto) 26.8 (18.3-44.2) % [place] % (Auto) 7.9 (2.6-8.5) % Eos % (Auto) 3.5 (0-4.4) % Baso % (Auto) 0.7 (0.2-1.2) % Lymph # (Auto) 1.84 (0.9-3.2) K/mm3 [place] # (Auto) 0.5 (0.1-0.6) K/mm3 Eos # (Auto) 0.2 (0-0.3) K/mm3 Baso # (Auto) 0.1 (0.0-0.1) K/mm3 Abs Immat Gran (auto) 0.02 (0.00-0.031) K/mm3 Absolute Neuts (auto) 4.2 (1.3-6.7) K/mm3 Absolute Nucleated RBC 0.000 (0.0-0.012) K/mm3 Nucleated RBC % 0.0 (0.0-0.2) % PT 13.3 (11.1-14.7) Seconds INR 1.0 APTT 25.1 (22.3-36.8) Seconds D-Dimer 0.44 (<0.48) ug/mL Sodium 141 (137-145) mmol/L Potassium 4.6 (3.4-5.0) mmol/L Chloride 106 (98-107) mmol/L Carbon Dioxide 25 (22-30) mmol/L Anion Gap 10 (4-12) mmol/L BUN 16 (7-17) mg/dL Creatinine 0.59 L (0.7-1.0) mg/dL Estim Creat Clear Calc 63 ml/min Estimated GFR > 60 (59 - ) Glucose 112 H (65-110) mg/dL Calcium 11.5 H (8.4-10.2) mg/dL Total Bilirubin 0.4 (0.2-1.3) mg/dL AST 26 (14-36) U/L ALT 25 (6-35) U/L Alkaline Phosphatase 92 (38-126) U/L Troponin I < 0.012 < 0.012 (0.000-0.034) ng/mL Total Protein 8.0 (6.3-8.2) g/dL Albumin 4.7 (3.5-5.1) g/dL Lipase 88 (23-300) U/L <Arleth N. Gaudreault, PA-C - Last Filed: 04/14/24 17:11> Lab Results 04/14/24 04/14/24 04/14/24 Range/Units 16:05 16:06 22:17 WBC 6.9 (4.5-10.0) K/mm3 RBC 4.53 (4.2-5.4) M/mm3 Hgb 13.7 (12.0-15.0) g/dL Hct 41.6 (37.0-47.0) % MCV 91.8 (80-100) fl MCH 30.2 (26-34) pg MCHC 32.9 (32-36) g/dl RDW 13.1 (11.5-14.5) % Plt Count 328 (150-375) k/mm3 MPV 9.6 (7.4-10.4) fl Immature Gran % (Auto) 0.3 (0-0.5) % Neut % (Auto) 60.8 (45.5-73.1) % Lymph % (Auto) 26.8 (18.3-44.2) % [place] % (Auto) 7.9 (2.6-8.5) % Eos % (Auto) 3.5 (0-4.4) % Baso % (Auto) 0.7 (0.2-1.2) % Lymph # (Auto) 1.84 (0.9-3.2) K/mm3 [place] # (Auto) 0.5 (0.1-0.6) K/mm3 Eos # (Auto) 0.2 (0-0.3) K/mm3 Baso # (Auto) 0.1 (0.0-0.1) K/mm3 Abs Immat Gran (auto) 0.02 (0.00-0.031) K/mm3 Absolute Neuts (auto) 4.2 (1.3-6.7) K/mm3 Absolute Nucleated RBC 0.000 (0.0-0.012) K/mm3 Nucleated RBC % 0.0 (0.0-0.2) % PT 13.3 (11.1-14.7) Seconds INR 1.0 APTT 25.1 (22.3-36.8) Seconds D-Dimer 0.44 (<0.48) ug/mL Sodium 141 (137-145) mmol/L Potassium 4.6 (3.4-5.0) mmol/L Chloride 106 (98-107) mmol/L Carbon Dioxide 25 (22-30) mmol/L Anion Gap 10 (4-12) mmol/L BUN 16 (7-17) mg/dL Creatinine 0.59 L (0.7-1.0) mg/dL Estim Creat Clear Calc 63 ml/min Estimated GFR > 60 (59 - ) Glucose 112 H (65-110) mg/dL Calcium 11.5 H (8.4-10.2) mg/dL Total Bilirubin 0.4 (0.2-1.3) mg/dL AST 26 (14-36) U/L ALT 25 (6-35) U/L Alkaline Phosphatase 92 (38-126) U/L Troponin I < 0.012 < 0.012 (0.000-0.034) ng/mL Total Protein 8.0 (6.3-8.2) g/dL Albumin 4.7 (3.5-5.1) g/dL Lipase 88 (23-300) U/L <Tc Briseno MD - Last Filed: 04/14/24 23:47> Discharge Plan Discharge Clinical Impression: Chronic pain <Arleth Epstein PA-C - Last Filed: 04/14/24 17:11> Patient Disposition: Home, Self-Care <Arleth Epstein PA-C - Last Filed: 04/14/24 17:11> Condition: Stable <Arleth Epstein PA-C - Last Filed: 04/14/24 17:11> Instructions: Antibiotic Form, Chronic Pain (ED) <Arleth Epstein PA-C - Last Filed: 04/14/24 17:11> Additional Instructions: Please follow-up with your neurosurgeon your regular scheduled appointment. Use Motrin Tylenol for pain. Return if you develop severe pain weakness in legs inability to urinate or bowel incontinence. <Arleth Epstein PA-C - Last Filed: 04/14/24 17:11> Patient Language: Cook Islander <Arleth Epstein PA-C - Last Filed: 04/14/24 17:11> Prescriptions: New ibuprofen 800 mg tablet 800 mg PO TID PRN (Reason: pain) 7 Days Qty: 21 0RF acetaminophen 500 mg tablet 1,000 mg PO TID PRN (Reason: pranav) 7 Days Qty: 42 0RF methocarbamol 750 mg tablet 1,500 mg PO TID Qty: 35 0RF No Action methocarbamol 750 mg tablet 750 mg PO DAILY sertraline 50 mg tablet 50 mg PO DAILY Qty: 90 2RF fluticasone propionate [Flonase Allergy Relief] 50 mcg/actuation spray,suspension 1 spray intranasal BID Qty: 48 0RF Rx Instructions: administer into each nostril alprazolam 0.5 mg tablet 0.5 mg PO BID Qty: 30 2RF alendronate 70 mg tablet 70 mg PO WEEKLY Qty: 12 2RF magnesium oxide 500 mg magnesium tablet 500 mg PO .COMPLEX Qty: 90 2RF Rx Instructions: 500 mg orally one hour before bedtime; cholecalciferol (vitamin D3) 50 mcg (2,000 unit) capsule 100 mcg PO DAILY Qty: 180 2RF <Arleth Epstein PA-C - Last Filed: 04/14/24 17:11> Follow-up/Referrals: Edu Morelos MD [Primary Care Provider] - <Arleth Epstein PA-C - Last Filed: 04/14/24 17:11>
[2024-04-14 17:17] LABS: D Dimer 0.44 ug/mL (<0.48)
[2024-04-14] MEDS: methocarbamoL 500 MG TABLET 1000 MG PO (17:28)
[2024-04-14] MEDS: HYDROcodone/acetaminophen (*CRX) 5-325 MG TABLET 1 TAB PO ×2 (17:28→23:51)
--- OUTSIDE RECORDS SUMMARY | 2024-04-14 19:30 | XMS_ITS | Clinical Summary ---
Author Organization [facility] Address [address] [place] [address] Care Team Providers Care Aging Box Hand Name Role Phone Edu Morelos MD Primary Care Provider [phone] Allergies Active Allergy Reactions Criticality Noted Date [...] Adult (#1) 2023 12/16/2019, 12/28/2018 PHQ-2 (Physician [place]) 03/09/2024 RSV Immunization or 60+ Years (1 [...] complete this topic Insurance [employer] Care Teams Aging Box Hand Relationship Specialty Start Date End Date Edu Morelos MD [address] [facility] [address] [place] [address] PCP - General INTERNAL MEDICINE 09/30/23
--- OUTSIDE RECORDS SUMMARY | 2024-04-14 19:30 | XMS_ITS | Continuity of Care Document ---
Author Organization [employer] [facility] Address [address] [place] [address] Phone Care Team Providers Care Wire Threader Name Role Phone Isabelle BIANCHI, Erich Unavailable Unavailable Advance Directives Directive Yes / No Effective Date File Name No Information Encounters Encounter Description Practice Location Reason(s) For Visit Diagnoses Date Provider Providers Copied on Encounter [facility], [address], [place], [place], [id number], [place] tel:[phone] [facility] No Information Isabelle Jung. [address] , [place], [place], [id number], [place]. tel:[phone] Referring Provider: Antonio Vargas, [address], [place], [address]. tel:[phone] Family History Family Member Type Diagnosis Age At Onset No Information Payers Payer name Insurance type Covered alliance party ID Authoriza tion(s) [employer] OPEN ACCESS I II III CI [id number] Social History Type Description Quantity Date [...]
--- OUTSIDE RECORDS SUMMARY | 2024-04-14 19:30 | XMS_ITS | Clinical Summary ---
Author Organization [facility] Address [address] [place] [address] Care Team Providers Care Php Developer Name Role Phone Unavailable Primary Care Provider Unavailabl e Source Comments [facility],non-owned Affiliates and Associated Physician Practices is amultiple site organization consisting of ambulatory clinics and hospital sitesin [place], [place], [place] and [place]. This disclosure is being madepursuant to the Care Everywhere program and may not contain all information available regarding this patient. Last updated 17.[facility] [employer] Social History Tobacco Use Types Packs/Day Years [...]
--- OUTSIDE RECORDS SUMMARY | 2024-04-14 19:30 | XMS_ITS | Patient Health Summary ---
Author Organization [facility] Address [address] [place] [address] Care Team Providers Care Fixture Maker Name Role Phone Unavailable Primary Care Provider Unavailabl e Note from [facility],non-owned Affiliates and Associated Physician Practices is amultiple site organization consisting of ambulatory clinics and hospital sitesin [place], [place], [place] and [place]. This disclosure is being madepursuant to the Care Everywhere program and may not contain all information available regarding this patient. Last updated 17.[facility] [employer] Social History Tobacco Use Types Packs/Day Years Used Date Smoking Tobacco: Never Assessed Sex and Gender Information Value Date Recorded Sex Assigned at Not on file Gender Identity Not on file Sexual Orientation Not on file Procedures * DERMATOPATHOLOGY(Performed 12/16/2023) Results * DERMATOPATHOLOGY (12/16/2023 1:51 PM CDT) Case Report Dermatopathology Report Case: [id number] Authorizing Provider: Aniya Logan, Collected: 12/16/2023 01:51 PM BOILER TESTER-WATER CHEMIST Ordering Location: [facility] - Received: 12/17/2023 12:27 [...] measuring 9x9x1 mm. Jar 0. 12:38 PM [facility] DERMATOPATH[facility]Y [facility]OR[facility] Microscopic Description Specimen A. [...] larger lesion, these findings may not be signs and displays sales representative of the entire lesion. Clinicopathologic correlation is recommended. 12:38 PM [facility] DERMATOPATH[facility]Y [facility]OR[facility] Disclaimer An external and internal positive and negative controls are appropriate for the histochemical, immunohistochemical and immunofluorescence stain(s) in this case (if any), except where stated explicitly. The performance characteristics of the stain(s) cited in this report were developed and its performance characteristic determined by the Dermatopathology Laboratory at [facility], directed by Dr. Noah Rosas. These tests need not be, and therefore are not, approved by the [place] Food and Drug Administration. The tests are used for clinical purposes. Billing Codes Specimen Charges Stain Charges 29823 51797 1 1 12:38 PM CDT DERMATOPATHOLOGY LABORATORY Embedded Images 12:38 PM T DERMATOPATHOLOGY LABORATORY Pathology/Cytology TISSUE SPECIMEN FROM SKIN / Unknown 12/16/2023 1:51 PM CDT 12/17/2023 12:27 PM CDT Miscellaneous samples (specimen) TISSUE SPECIMEN FROM SKIN / Unknown 12/16/2023 1:51 PM CDT 12/17/2023 12:27 PM CDT Aniya Wade Doreen CINTRONN-WATER CHEMIST LAB - PATH OLOGY/CYTOLOGY ORDERABLES Performing Organization Address City/State/[facility] Co de Phone Number DERMATOPATHOLOGY LABORATORY [facility] - Department of Dermatology [facility], [address]rd Floor [address] [phone]
--- OUTSIDE RECORDS SUMMARY | 2024-04-14 19:30 | XMS_ITS | Encounter Summary ---
Author Organization [facility] Address [address] [place] [address] Care Team Providers Care Balance Clerk Name Role Phone Unavailable Primary Care Provider Unavailabl e Encounter Details Date Type Department Care Team (Late st Contact Info) Description 12/16/2023 Lab Requisition [facility] - DermPath Lab [address] [place] [id number] Aniya Logan AXLE AND FRAME MECHANIC-ELECTRONIC SYSTEMS SECURITY ASSESSMENT [address] [place] [address] Social History Tobacco Use Types Packs/Day Years [...] PM CDT) Case Report Dermatopathology Report Case: [id number] Authorizing Provider: Aniya Logan, Collected: 12/16/2023 01:51 PM [employer] AND FRAME MECHANIC-ELECTRONIC SYSTEMS SECURITY ASSESSMENT Ordering Location: [facility] Physician [facility] - Received: 12/17/2023 12:27 PM DermPath Lab Pathologist: Daniela Duarte MD Specimens: A) - Skin, left back B) - Skin, mid back 12:38 PM CDT DERMATOPATHOLOGY LABORATORY Final Diagnosis Specimen A. SKIN, left back: SEBORRHEIC KERATOSIS (L82.1) Specimen B. SKIN, mid back: LENTIGINOUS MELANOCYTIC NEVUS, JUNCTIONAL TYPE, IRRITATED AND INFLAMED (D22.5) (see microscopic description and comment) 12:38 PM [facility] DERMATOPATHOLOGY [facility]ORAT[facility] Clinical History A-B: R/O Atypia 12:38 PM [facility] DERMATOPATHOLOGY [facility]OR[facility] Gross Description Specimen A: [...] measuring 9x9x1 mm. Jar 0. 12:38 PM [facility] DERMATOPATHOLOGY [facility]AT[facility] Microscopic Description Specimen A. [...] larger lesion, these findings may not be labor service representative of the entire lesion. Clinicopathologic correlation is recommended. 12:38 PM [facility] DERMATOPATHOLOGY [facility]ORATORY Disclaimer An external and internal positive and negative controls are appropriate for the histochemical, immunohistochemical and immunofluorescence stain(s) in this case (if any), except where stated explicitly. The performance characteristics of the stain(s) cited in this report were developed and its performance characteristic determined by the Dermatopathology Laboratory at [facility], directed by Dr. Noah Rosas. These tests need not be, and therefore are not, approved by the [place] Food and Drug Administration. The tests are used for clinical purposes. Billing Codes Specimen Charges Stain Charges 09978 12206 1 1 12:38 PM [facility] DERMATOPATHOLOGY LABORATORY Embedded Images 12:38 PM [facility] DERMATOPATHOLOGY [facility]ORATORY Pathology/Cytology TISSUE SPECIMEN FROM SKIN / Unknown 12/16/2023 1:51 PM CDT 12/17/2023 12:27 PM CDT Miscellaneous samples (specimen) TISSUE SPECIMEN FROM SKIN / Unknown 12/16/2023 1:51 PM CDT 12/17/2023 12:27 PM CDT Aniya Zelayacarolann AXLE AND FRAME MECHANIC-ELECTRONIC SYSTEMS SECURITY ASSESSMENT LAB - PATH OLOGY/CYTOLOGY ORDERABLES DERMATOPATHOLOGY LABORATORY [facility] - Department of Dermatology [facility] [address] [place] [address], [address] [phone] documented in this encounter Visit Diagnoses Not on filedocumented in this encounter
--- OUTSIDE RECORDS SUMMARY | 2024-04-14 19:30 | XMS_ITS | Referral Summary ---
Author Organization [facility] Address [address] [address] Care Team Providers Care Operator Engineer Name Role Phone Unavailable Primary Care Provider Unavailabl e Source Comments [facility],non-owned Affiliates and Associated Physician Practices is amultiple site organization consisting of ambulatory clinics and hospital sitesin [place], [place], [place] and [place]. This disclosure is being madepursuant to the Care Everywhere program and may not contain all information available regarding this patient. Last updated 17.[facility] Social History Tobacco Use Types Packs/Day Years Used Date Smoking Tobacco: Never Assessed Sex and Gender Information Value Date Recorded Sex Assigned at Not on file Gender Identity Not on file Sexual Orientation Not on file Plan of Treatment Not on file Amita Ray Personal/Family Self 1960
--- OUTSIDE RECORDS SUMMARY | 2024-04-14 19:30 | XMS_ITS | Referral Summary ---
Author Organization [facility] Address [address] [place] [address] Care Team Providers Care Substation Operator Chief Name Role Phone Charlie Alfredo MD Primary [...] on file Legal Sex Female 1:24 AM FORENSIC DNA ANALYST Gender Identity Not on file Sexual Orientation [...] (127 lb 12.8 oz) 01/10/2020 9:33 AM FORENSIC DNA ANALYST Height 157.5 cm (5' 2 ) 01/10/2020 9:33 AM FORENSIC DNA ANALYST Body Mass Index 23.37 01/10/2020 9:33 AM FORENSIC DNA ANALYST Plan of Treatment Not on file Medical Devices Implanted Type Area Bandoleer Straightener Stamper Device Identifier Shelf Expiration Date Model / Serial / Lot [employer] Ringloc+ 50mm Limit Hole Shell Hip Acetabular - [id number] Implanted:Qty: 1 on 08/19/2017 by Ferdinand Ascencio MD at [facility] Right: Hip [employer] [id number] 12/24/2026 [id number] / / [id number] [employer] Ringloc 36mm High Wall Liner Hip +3mm 23 Acetabular E-Poly - [id number] Implanted:Qty: 1 on 08/19/2017 by Ferdinand Ascencio MD at [facility] Right: Hip [employer] [id number] 06/25/2022 [id number] / / [id number] [employer] 6.5mm 45mm Low Profile Screw Hip Acetabular Cancellous Dome Bone - [id number] Implanted:Qty: 1 on 08/19/2017 by Ferdinand Ascencio MD at [facility] Right: Hip [employer] 08/02/2026 [id number] / / [id number] [employer] Echo Bi-Metric 12mm 140mm Noncollar Full Proximal Profile Press - [id number] Implanted:Qty: 1 on 08/19/2017 by Ferdinand Ascencio MD at [facility] Right: Hip [employer] [id number] 10/30/2025 [id number] / / [id number] [employer] G7 Type 1 Sleeve Hip Standard Offset Taper Centering Titanium - [id number] Implanted:Qty: 1 on 08/19/2017 by Ferdinand Ascencio MD at [facility] Right: Hip [employer] [id number] 11/28/2026 [id number] / / [id number] Head Femoral G7 Biolox Delta Biolox Option Od36 Mm Hip - [id number] Implanted:Qty: 1 on 08/19/2017 by Ferdinand Ascencio MD at [facility] Right: Hip [employer] [id number] 09/11/2026 650-1057 / / [id number] Procedures Procedure Name Priority Date/Time Associated Diagnosis Comments DEXA AXIAL SKELETON BONE DENSITY 1 OR MORE SITES Schedule Routine, Read Routine (OP Routine) 01/10/2020 10:11 AM FORENSIC DNA ANALYST Osteoporosis screening from Last 3 Months or Most Recently Relevant to Health Maintenance Results * Dexa Axial Skeleton Bone Density 1 or 2 Site (01/10/2020 10:11 AM FORENSIC DNA ANALYST) Anatomical Region Laterality Modality Body N/A Radiographic Yaritza ging Narrative 01/10/2020 10:18 AM FORENSIC DNA ANALYST Patient Name: Raffy Teran Date of : 1960 Date of scan: 01/10/2020 Bone mineral density was performed on a [employer] Discovery Densitometer. Machine Cross-calibration and Precision studies [...] by the International Society of Clinical Densitometry. [id number] Chelo Colin MD IMG DXA PROCEDURES Final Resu lt from Last 3 Months or Most Recently Relevant to Health Maintenance Insurance [facility] AET[employer] SIG [id number] [facility] AETNA [facility] MEDICARE Advance Directives For more information, please contact: [phone] * Full Code (Latest Code Status on File) Date Activated Date Inactivated Comments 08/24/2017 11:03 PM * Full Code Date Activated Date Inactivated Comments 08/24/2017 7:07 AM 08/24/2017 11:03 PM * Full Code Date Activated Date Inactivated Comments 08/19/2017 11:18 AM 08/21/2017 3:16 PM Care Teams Substation Operator Chief Relationship Specialty Start Date End Date Charlie Alfredo MD PCP - General 06/30/17
--- OUTSIDE RECORDS SUMMARY | 2024-04-14 19:30 | XMS_ITS | Clinical Summary ---
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 Gender Identity Not on file Sexual Orientation [...] (127 lb 12.8 oz) 01/10/2020 9:33 AM ELECTRON BEAM WELDING MACHINE OPERATOR Height 157.5 cm (5' 2 ) 01/10/2020 9:33 AM ELECTRON BEAM WELDING MACHINE OPERATOR Body Mass Index 23.37 01/10/2020 9:33 AM ELECTRON BEAM WELDING MACHINE OPERATOR Plan of Treatment Health Maintenance Due Date [...] 12/16/2019, 2018 Medical Devices Implanted Type Area Electrician Research Device Identifier Shelf Expiration Date Model / Serial / Lot [employer] Ringloc+ 50mm Limit Hole Shell Hip Acetabular - [id number] Implanted:Qty: 1 on 08/19/2017 by Ferdinand Ascencio MD at [facility] Right: Hip [employer] [id number] 12/24/2026 [id number] / / [id number] [employer] Ringloc 36mm High Wall Liner Hip +3mm 23 Acetabular E-Poly - [id number] Implanted:Qty: 1 on 08/19/2017 by Ferdinand Ascencio MD at [facility] Right: Hip [employer] [id number] 06/25/2022 [id number] / / [id number] [employer] 6.5mm 45mm Low Profile Screw Hip Acetabular Cancellous Dome Bone - [id number] Implanted:Qty: 1 on 08/19/2017 by Ferdinand Ascencio MD at [facility] Right: Hip [employer] 08/02/2026 [id number] / / [id number] [employer] Echo Bi-Metric 12mm 140mm Noncollar Full Proximal Profile Press - [id number] Implanted:Qty: 1 on 08/19/2017 by Ferdinand Ascencio MD at [facility] Right: Hip [employer] [id number] 10/30/2025 [id number] / / [id number] [employer] G7 Type 1 Sleeve Hip Standard Offset Taper Centering Titanium - [id number] Implanted:Qty: 1 on 08/19/2017 by Ferdinand Ascencio MD at [facility] Right: Hip [employer] [id number] 11/28/2026 650-1066 / / [id number] Head Femoral G7 Biolox Delta Biolox Option Od36 Mm Hip - [id number] Implanted:Qty: 1 on 08/19/2017 by Ferdinand Ascencio MD at [facility] Right: Hip [employer] [id number] 09/11/2026 650-1057 / / [id number] Procedures Procedure Name Priority Date/Time Associated Diagnosis Comments DEXA AXIAL SKELETON BONE DENSITY 1 OR MORE SITES Schedule Routine, Read Routine (OP Routine) 01/10/2020 10:11 AM ELECTRON BEAM WELDING MACHINE OPERATOR Osteoporosis screening from Last 3 Months or Most Recently Relevant to Health Maintenance Results * Dexa Axial Skeleton Bone Density 1 or 2 Site (01/10/2020 10:11 AM ELECTRON BEAM WELDING MACHINE OPERATOR) Anatomical Region Laterality Modality Body N/A Radiographic Yaritza ging Narrative 01/10/2020 10:18 AM ELECTRON BEAM WELDING MACHINE OPERATOR Patient Name: Raffy Teran Date of : 1960 Date of scan: 01/10/2020 Bone mineral density was performed on a [employer] Discovery Densitometer. Machine Cross-calibration and Precision studies [...] by the International Society of Clinical Densitometry. [id number] Chelo Colin MD IMG DXA PROCEDURES Final Resu lt from Last 3 Months or Most Recently Relevant to Health Maintenance Insurance [facility] AETNA SIG [id number] [facility] S[facility]IC[facility] Advance Directives For more information, please contact: [phone] * Full Code (Latest Code Status on File) Date Activated Date Inactivated Comments 08/24/2017 11:03 PM * Full Code Date Activated Date Inactivated Comments 08/24/2017 7:07 AM 08/24/2017 11:03 PM * Full Code Date Activated Date Inactivated Comments 08/19/2017 11:18 AM 08/21/2017 3:16 PM Care Teams Cancer Spec Relationship Specialty Start Date End Date Charlie Alfredo MD PCP - General 06/30/17
--- OUTSIDE RECORDS SUMMARY | 2024-04-14 19:30 | XMS_ITS | Encounter Summary ---
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
--- NOTE | 2024-04-14 20:50 | ECG_ITS ---
Test Date: 2024-04-14 22:22:13 Measurements Intervals [place] Rate: 76 P: 52 [place]: 136 QRS: 10 QRSD: 102 T: 46 QT: 365 QTc: 410 Interpretive Statements SINUS RHYTHM VOLTAGE CRITERIA FOR LVH BASELINE ARTIFACT- III BORDERLINE ECG Compared to ECG 04/14/2024 15:51:13 NO SIGNIFICANT CHANGE Electronically Signed On 04-15-2024 06:35:32 INFORMATION MANAGEMENT SPECIALIST by Guzman Kam D.O.
[2024-04-14 23:24] VITALS: O2SAT 99
[2024-04-14 23:26] LABS: Troponin I < 0.012 ng/mL (0.000-0.034)
[2024-04-14] MEDS: diazePAM INJ (*CRX) 10 MG/2 ML SYRINGE 5 MG IV PUSH (23:52)
[2024-04-15 00:02] VITALS: BP 159/105; PULSE 77; RESP 18; O2SAT 98
== END 2024-04-15 00:35 | disposition home or self-care (01) ==
PROVIDERS: Emergency Medicine; Physician Assistant; Emergency Provider Emergency Medicine; PCP Emergency Medicine
DX: M54.6 Pain in thoracic spine (principal); R07.9 Chest pain, unspecified; G89.29 Other chronic pain; E78.5 Hyperlipidemia, unspecified; J32.9 Chronic sinusitis, unspecified; Z96.641 Presence of right artificial hip joint; Z90.49 Acquired absence of other specified parts of digestive tract; I51.7 Cardiomegaly; R94.31 Abnormal electrocardiogram [ECG] [EKG]; Z79.899 Other long term (current) drug therapy
CPT/HCPCS: 36415; 71046; 80053; 83690; 84484; 85025; 85380; 85610; 85730; 93005; 96374; 99284; A9270; J3360

== ENCOUNTER 2024-05-11 13:57 | Outpatient (CLI) | payer MEDICARE, SELFPAY ==
--- NOTE | ~2024-05-11 | CT_ITS ---
EXAMINATION: CT lumbar spine wo con DATE: 05/11/2024 14:21 INDICATION: Spinal stenosis. TECHNIQUE: Computed tomography (CT) of the lumbar spine was performed without intravenous contrast. A utomated exposure control and iterative reconstruction technique were employed. The dose-length produ ct was 358.46 mGy-cm. COMPARISON: Lumbar spine MRI 06/14/2023 FINDINGS: There is 7 degrees levocurvature of lumbar spine. Vertebral body heights are normal. There is a hemangioma in L3 vertebral body. There is moderately decreased disc height at T12-L1 and L1-L2, severely decreased disc height at L2-L3, and moderately decreased disc height at L3-L4 and L4-L5. The following disc levels are specifically discussed: L1-L2: The disc is bulging. There is severe bilateral facet joint osteoarthritis. There is mild bilat eral neural foraminal stenosis. There is mild central canal stenosis. L2-L3: The disc is bulging. There is severe bilateral facet joint osteoarthritis. There is mild bilat eral neural foraminal stenosis. There is mild central canal stenosis. L3-L4: The disc is bulging. There is moderate bilateral facet joint osteoarthritis. There is mild naya ateral neural foraminal stenosis. There is mild central canal stenosis. L4-L5: The disc is bulging. There is severe bilateral facet joint osteoarthritis. There is mild bilat eral neural foraminal stenosis. There is mild central canal stenosis. L5-S1: There is a left foraminal protrusion. There is severe bilateral facet joint osteoarthritis. Th ere is mild bilateral neural foraminal stenosis. There is no central canal stenosis. IMPRESSION: 1. Severe lumbar spondylosis, stable from 06/14/2023. Reviewed, dictated and finalized at location A. VANCE MANAGER
--- OUTSIDE RECORDS SUMMARY | 2024-05-11 15:36 | XMS_ITS | Encounter Summary ---
Author Organization 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
--- OUTSIDE RECORDS SUMMARY | 2024-05-11 15:36 | XMS_ITS | Continuity of Care Document ---
Author Organization [facility] Address [address] [place] [address] Phone Care Team Providers Care Sales Compensation Analyst Name Role Phone Isabelle BIANCHI, Erich Unavailable Unavailable Advance Directives Directive Yes / No Effective Date File Name No Information Encounters Encounter Description Practice Location Reason(s) For Visit Diagnoses Date Provider Providers Copied on Encounter [facility], [address], [place], [place], [id number], [place] tel:[phone] [facility] No Information Isabelle Jung. [address] , [place], [place], [id number], [place]. tel:[phone] Referring Provider: Antonio Vargas, [address], [place], [address]. tel:[phone] Family History Family Member Type Diagnosis Age At Onset No Information Payers Payer name Insurance type Covered republican ID Authoriza tion(s) [employer] OPEN ACCESS I II III CI [id number] Social History Type Description Quantity Date [...]
--- OUTSIDE RECORDS SUMMARY | 2024-05-11 15:36 | XMS_ITS | Data Portability ---
Author Organization [facility] [place] Address [address] [place] [address] Assessment Encounter Date Assessment Date Assessment LastModified [...] analysis , blood or tissue 2021 022 [facility], [address], [place], [address], 21:38:45 Referral None recorded . Procedures None recorded . Surgeries None recorded . Imaging MAMMO, screenin g, digital, bilatera l 2023 024 [facility], [address], [place], [address], 4 05:00:53 US, pelvis 2021 022 [email or web address] [place], [address], [address], [place], [address], 18:10:40 US, transvag inal 2021 022 [email or web address] [place], [address], [place], [address], 18:10:40 MAMMO, screenin g, bilatera l 2021 [email or web address] [facility], [address], [place], [address], 16:20:34 US, pelvis, complete 2021 022 [email or web address] [place], [address], [place], [address], 19:05:29 Medication Orders None recorded . Patient TargetsNo [...] Techn ical servi fatmata provi ded by [facility] [employer] logis [employer], d/b/a Path[facility] rou, [address] [facility] [address] [place] [address] Antione Hernandez MD, Labor [employer] tor. Case revie wed and diagn osis rende red at [facility] [employer] Patho logis [employer], d/b/[employer] [facility], [address], [place] [address] Ramu Isaac MD, Labor [employer] tor. CONFI DENTI AL Not Available [facility] [address], [place], [address], 07/15/2019 16:33:51 08/02/19 22 08/01/2021 INVIT AE COMMO N HERED ITARY CANCE RS PANEL abnormal status abnormal Not Available [employer] [address], [place], [address], 08/16/2021 21:38:45 07/14/19 20 07/14/2019 MAMMO , scree cecile, bilat eral No observ ation record ed. ajith [facility] (Imaging) [address], [place], [address], 07/25/2019 12:00:51 07/25/19 20 07/14/2019 MAMMO , scree cecile, bilat eral No observ ation record ed. [email or web address] Not Available 2019 12:00:52 09/07/19 21 MAMMO , scree cecile, bilat eral No observ ation record ed. [email or web address] Not Available 2020 15:34:07 08/16/19 22 08/15/2021 US, pelvi s No observ ation record ed. [email or web address] [place] [address], [place], [address], 08/15/2021 13:01:47 08/16/19 22 08/15/2021 US, trans vagin al No observ ation record ed. [email or web address] [place] [address], [place], [address], 08/15/2021 13:01:56 08/16/19 22 08/15/2021 US, pelvi s No observ ation record ed. baron Carpio [address], [place], [address], 08/19/2021 09:56:42 10/24/19 22 10/23/2021 MAMMO , scree cecile, bilat eral No observ ation record ed. [address], [place], [address], 10/30/2021 17:34:45 06/04/19 24 06/04/2023 MAMMO , scree cecile, bilat eral No observ ation record ed. [address], [place], [address], 06/05/2023 12:02:46 Result Notes None recorded. Procedures Surgical History Date Name Laterality Status Provider Name and Address Organization Details Recorded Time 020 Skin Tag Removal completed KATHERINE Chun- [address], [place], [address], [place] [facility] 07/18/2019 10:35:38 019 Date of Last Pap Smear completed Charley Adamson [facility] 08/01/2021 11:57:50 012 Colonoscopy completed [facility] 07/21/2023 09:34:51 009 cholecystectomy completed [facility] 07/21/2023 09:34:45 000 Tubal Ligation completed [facility] 07/21/2023 09:35:11 000 Total Hysterectomy completed [facility] 07/21/2023 09:34:59 Imaging Results Imaging Date Name Status LastModified by Organization Details LastModified Time 07/14/2019 MAMMO, screening, bilateral completed [address] (Imaging) [address] [facility] [address] [place] [address], [address], 07/25/2019 12:00:51 07/14/2019 MAMMO, screening, [email or web address] available 07/25/2019 12:00:52 09/06/2020 MAMMO, screening, bilateral completed [email or web address] Information not available 09/07/2020 15:34:07 08/15/2021 US, pelvis completed [email or web address] [facility] [address], [place], [address], 08/15/2021 13:01:47 08/15/2021 US, transvaginal completed [email or web address] Nelia hemphill [address], [place], [address], 08/15/2021 13:01:56 08/15/2021 US, pelvis completed baron Carpio [address], [place], [address], 08/19/2021 09:56:42 10/23/2021 MAMMO, screening, bilateral completed [place] [address] [facility] [address] [place] [address], [address], 10/30/2021 17:34:45 06/04/2023 MAMMO, screening, bilateral completed [address], [place], [address], 06/05/2023 12:02:46 Procedure Notes None recorded. Medical Equipment None Reported. Allergies Allergen ID Allergen Name Allergen Category Reaction Reaction Severity Criticality Documentation Date Start Date Code Code System Note Provider Name and Address Organization Details Recorded Time 430 tramadol medicatio n Not available Not available Not available 07/07/2019 01139 RxNorm Isabela Lacey [place], [place] - [facility] 0 15:26:50 Medications Name Sig [...] Prescrib ed Elsewher e: Yes Loca tion: [facility] M odify By: shasha swanson DateTime : [...] Elsewher e: Yes Loca tion: Nelia hemphill [facility] odify By: bruna swanson DateTime : 06/18/19 12 02:30:00 PM Not Available Not Available Not Available Cipro 500 mg tablet take 1 tablet by oral route every 12 hours 04/20 completed Prescrib ed Elsewher e: No Locat ion: Nelia hemphill [facility] odify By: bruna [email or web address] DateTime : [...] Elsewher e: No Locat ion: Nelia hemphill [facility] odify By: bruna swanson DateTime : [...] Elsewher e: Yes Loca tion: Nelia hemphill [facility] odify By: bruna swanson DateTime : [...] Available No t Available [employer] Barbi [facility] spacer DIRECTED 07/20 completed Not Available Not Available Not Available Multi Vitamin 07/20 completed Not Available Not Available Not Available Vitals Date Recorded Body height Body mass index (BMI) Body weight Systolic blood pressure Diastolic blood pressure Provider Name and Address Organization Details Last Updated DateTime 08/01/2021 157.48 cm 24 kg/m2 70172.6 g 125 mm[Hg] 73 mm[Hg] [facility] 2 11:56:18 Date Recorded Body height Body mass index (BMI) Body weight Systolic blood pressure Diastolic blood pressure Provider Name and Address Organization Details Last Updated DateTime 08/19/2021 157.48 cm 23.2 kg/m2 40730.23 g 134 mm[Hg] 78 mm[Hg] [facility] 2 09:34:10 Date Recorded Body height Body mass index (BMI) Body weight Systolic blood pressure Diastolic blood pressure Provider Name and Address Organization Details Last Updated DateTime 07/21/2023 157.48 cm 23.6 kg/m2 98420.42 g 119 mm[Hg] 79 mm[Hg] Zaria Preston [facility] 4 09:29:55 Date Recorded Body height Body mass index (BMI) Body weight Systolic blood pressure Diastolic blood pressure Provider Name and Address Organization Details Last Updated DateTime 07/12/2019 1920.24 cm 0.2 kg/m2 04076.79 g 135 mm[Hg] 57 mm[Hg] Isabela Lacey [...] Diagnosis ICD10 Code Diagnosis Note [id number] Jessica uNno [place] [address] [address] 07/07/2019 15:36:54 07/07/2019 16:21:49 Routine gynecologic examination done 0958409185 9101 Z01.419 Take Calcium with Vitamin D 12-1500mg daily. Do monthly self breast exams. It is advised to get annual flu shot in the fall and she could obtain at [facility] or [facility] care clinic. If you haven't received [...] schedule appt for this prn. 3067 [facility] [address] [address] 07/12/2019 10:27:54 07/12/2019 10:59:59 Anal skin tag [id number] K64.4 Patient presented today for removal of [...] counseling and review of plan of care. 180345 [place] Singh [place] [address] [address] 08/01/2021 11:41:46 08/01/2021 13:15:43 Family history of breast cancer 987098979 Z80.3 Screening for malignant neoplasm of breast 833714212 Z12.39 Pain in pelvis 56289659 R10.2 Gynecologi c examination 85490903 Z01.419 Take Calcium with Vitamin D 12-1500mg daily. Do monthly self breast exams. It is advised to get annual flu shot in the fall and she could obtain at [facility] or [facility] care clinic. If you haven't received [...] with the patient was over 35 minutes [id number] Soo Alvarenga [place] [address] [address] 08/15/2021 12:28:36 08/15/2021 14:15:09 Pain in pelvis 50544814 R10.2 [id number] KATHERINE Andres [place] [address],[facility] [place] [address] 08/19/2021 09:26:14 08/19/2021 10:40:26 Pain in pelvis 21011571 R10.2 Here today to discuss u/s results. [...] counseling and review of plan of care. [id number] KATHERINE Andres [place] [address] [address] 07/21/2023 09:25:28 07/21/2023 09:59:55 Gynecologic examination 93981598 Z01.419 WWEpaps d/c'd unless otherwise indicatedd eclined STI screenmamm ogram due next 5col onoscopy UTD/PCP ordersdexa UTD/PCP managesrou paige labs UTD/PCPRTC in 1 yr or sooner if needed Take Calcium with Vitamin D daily. Do monthly self breast exams. It is advised to get annual flu shot in the fall and she could obtain at [facility] or [facility] care clinic. If you haven't received [...] email Screening for malignant neoplasm of breast [id number] Z12.39 Health Concerns Section Related Observation LastModified by Organization Detai ls LastModified Time None Recorded Concern Status LastModified by Organization Details LastModified Time None Recorded Advance Directives Directive None Recorded Payers Encounter Date Sequence Insurance Name Policy Number Policy Yung Covered Member ID Yung Member ID Guarantor Name 07/12/2019 1 [employer] [address] ([facility]) Butch Ray [id number] Amita Ray 08/01/2021 1 [employer] [address] ([facility]) Butch Ray [id number] Amita Ray 08/15/2021 1 [employer] [address] ([facility]) Butch Ray [id number] Amita Ray 08/19/2021 1 [employer] [address] ([facility]) Butch Ray [id number] Amita Ray 07/21/2023 1 [employer] ([place]) [id number] Butch Ray [id number] Amita Ray Notes Date Note Type Note Provider Name and Address Organization Details Recorded Time 07/12/2019 text/html Patient presents today for removal of katey-anal skin tag which has been bothering her when she wipes. KATHERINE Chun- [address], [place], [address], [facility] 07/18/2019 10:38:54 08/01/2021 text/html Annual Container Repairer Post-MenopausalReport ed bypatient.Menopausal Symptoms:no menopausal symptoms; normal [...] schedule mammogram KATHERINE Andres [address], [place], [address], [facility] 08/01/2021 12:40:13 08/19/2021 text/html Here to discuss u/s results [address], [place], [address], [facility] 08/19/2021 09:56:09 07/21/2023 text/html Annual Container Repairer Post-MenopausalReport ed bypatient.Menopausal Symptoms:no menopausal symptoms; normal [...] PCP manages (was seeing bone specialist in [facility] but states now PCP is managing. No longer on alendronate, takes calcium/vitamin D per pt) KATHERINE Andres [address], [place], [address], [place] [facility] 07/21/2023 09:58:46 OBGyn Episode Ob Episode Information Episode Created Date Number of Fetuses Patient Bloodtype Patient rh Status Prepregnancy Weight lbs Domestic Partner Domestic Partner Phone Father Name Studio Model Status 07/07/19 20 1 CLOSED Fetus Data [...] Domestic Partner Domestic Partner Phone Father Name Studio Model Status 07/07/19 20 1 CLOSED Fetus Data [...] Domestic Partner Domestic Partner Phone Father Name Studio Model Status 07/07/19 20 1 CLOSED Fetus Data [...]
--- OUTSIDE RECORDS SUMMARY | 2024-05-11 15:37 | XMS_ITS | Referral Summary ---
Author Organization [facility] Address [address] [place] [address] Care Team Providers Care Transit Coach Operator Name Role Phone Unavailable Primary Care Provider Unavailabl e Source Comments [facility],non-owned Affiliates and Associated Physician Practices is amultiple site organization consisting of ambulatory clinics and hospital sitesin [place], [place] and [place]. This disclosure is being madepursuant to the Care Everywhere program and may not contain all information available regarding this patient. Last updated 17.[facility] Social History Tobacco Use Types Packs/Day Years Used Date Smoking Tobacco: Never Assessed Sex and Gender Information Value Date Recorded Sex Assigned at Not on file Gender Identity Not on file Sexual Orientation Not on file Plan of Treatment Not on file Amita Ray Personal/Family Self 1960
--- OUTSIDE RECORDS SUMMARY | 2024-05-11 15:37 | XMS_ITS | Clinical Summary ---
Author Organization [facility] Address [address] [place] [address] Care Team Providers Care Degreaser Name Role Phone Unavailable Primary Care Provider Unavailabl e Source Comments [facility],non-owned Affiliates and Associated Physician Practices is amultiple site organization consisting of ambulatory clinics and hospital sitesin [place], [place], [place] and [place]. This disclosure is being madepursuant to the Care Everywhere program and may not contain all information available regarding this patient. Last updated 17.[facility] [employer] Social History Tobacco Use Types Packs/Day Years [...]
--- OUTSIDE RECORDS SUMMARY | 2024-05-11 15:37 | XMS_ITS | Clinical Summary ---
Author Organization [facility] Address [facility] [place] [address] Care Team Providers Care Traditional Chinese Herbalist Name Role Phone Edu Morelos MD Primary Care Provider [phone] Allergies Active Allergy Reactions Criticality Noted Date [...] Adult (#1) 2023 12/16/2019, 12/28/2018 PHQ-2 (Physician Hopi) 03/09/2024 RSV Immunization or 60+ Years (1 [...] complete this topic Insurance [employer] Care Teams Traditional Chinese Herbalist Relationship Specialty Start Date End Date Edu Morelos MD [address] [place] [address] PCP - General INTERNAL MEDICINE 09/30/23
--- OUTSIDE RECORDS SUMMARY | 2024-05-11 15:37 | XMS_ITS | Clinical Summary ---
Author Organization [facility] Address [address] [place] [address] Care Team Providers Care Radar Engineering Teacher Name Role Phone Edu Morelos MD Primary Care Provide r Allergies Active Allergy Reactions Criticality Noted Date Comments Amoxicillin Other (See comments) Low 10/05/2018 itching Tramadol Rash Medium 07/25/2017 Medications calcium carbonate-vitami n D3 1,250mg (500mg elemental) - 200 units per tablet Take 1 tablet by mouth 2 (two) times a day with meals Active multivitamin with minerals tablet Take 1 tablet by mouth daily Active cyclobenzaprine (FLEXERIL) 10 mg tablet Take 10 mg by mouth 2 (two) times a day as needed for muscle spasms. Active ferrous sulfate 325 mg (65 mg of elemental iron) tabletIndication s:Iron Deficiency Anemia Take 1 tablet (325 mg total) by mouth 2 (two) times a day after lunch and dinner. 20 tablet 08/21/19 18 Active Lactobac no.41/Bifidobact no.7 (PROBIOTIC-10 ORAL) Take by mouth Active alendronate (FOSAMAX) 70 mg tabletIndication s:Osteoporosis screening,Age-re lated osteoporosis without current pathological fracture TAKE 1 TABLET BY MOUTH EVERY 7 DAYS 12 tablet 3 05/03/19 22 Active methocarbamoL (ROBAXIN) 750 mg tablet Take 1 tablet (750 mg total) by mouth 4 (four) times a day Active sertraline (ZOLOFT) 50 mg tablet Take 1 tablet (50 mg total) by mouth daily Active gabapentin (NEURONTIN) 600 mg tabletIndication s:Spinal stenosis of lumbar region, unspecified whether neurogenic claudication present,Lumbar pain Take 0.5 tablets (300 mg total) by mouth 3 (three) times a day 45 tablet 11 04/27/19 25 026 Active nortriptyline (PAMELOR) 10 mg capsule Take 10 mg by mouth 2 (two) times a day. 025 Discontinued aspirin 325 mg EC tabletIndication s:Deep Vein Thrombosis Prevention Take 1 tablet (325 mg total) by mouth 2 (two) times a day. 100 tablet 08/21/19 18 025 Discontinued morphine ER (MS CONTIN) 30 mg 12 hr tabletIndication s:Severe Pain,Discontinue previos home oral dilaudid Take 1 tablet (30 mg total) by mouth every 8 (eight) hours. 60 tablet 08/21/19 18 025 Discontinued HYDROmorphone 4 mg/mL solution 025 Discontinued LORazepam (ATIVAN) 1 mg tablet 0 11/12/19 18 025 Discontinued nitrofurantoin monohydrate (MACROBID) 100 mg capsule TK 1 C PO BID 0 08/24/19 19 025 Discontinued oxybutynin XL (DITROPAN-XL) 10 mg 24 hr tablet TK ONE T PO D 12 10/01/19 025 Discontinued Active Problems Problem Noted Date Diagnosed Date Aftercare following right hip joint replacement surgery 07/15/2017 Prophylactic antibiotic 07/15/2017 Encounters Date Type Department Care Team Description 04/27/2024 10:43 AM DATABASE SECURITY EXPERT - 04/27/2024 11:59 PM DATABASE SECURITY EXPERT Hospital Encounter [facility] Di[facility] Imaging [address] [place] [address] Spinal stenosis of lumbar region, unspecified whether neurogenic claudication present; Lumbar pain Discharge Disposition: Discharge to home or self care 04/27/2024 10:30 AM DATABASE SECURITY EXPERT Office Visit [facility] [address] [place] [address] 3, [address] [place] [address] Vinod Wellington PA Spinal stenosis of lumbar region, unspecified whether neurogenic claudication present (Primary Dx); Lumbar pain; Neck pain from Last 3 Months Surgical History Surgery Date Site/Laterality Comments HYSTERECTOMY [...] = 0.6 oz pur e alcohol) social AUDIT-C Answer Date Recorded Q1: How often do you have a drink containing alc ohol? Monthly or less 04/27/2024 Q2: How many drinks containi ng alcohol do you have on a typical day when you are drinking? 1 or 2 04/27/2024 Q3: How often do you have si x or more drinks on one occasion? Never 04/27/2024 Comments No Sex and Gender Information Value Date Recorded Sex Assigned at Not on file Legal Sex Female 1:24 AM DATABASE SECURITY EXPERT Gender Identity Not on file Sexual Orientation Not on file Obstetrics History Last Filed Vital Signs Vital Sign Reading Time Taken Comments Blood Pressure 142/78 04/27/2024 10:06 AM DATABASE SECURITY EXPERT Pulse 71 04/27/2024 10:06 AM DATABASE SECURITY EXPERT Temperature 36.7 C (98.1 F) 08/28/2017 12:40 PM CDT Respiratory Rate 18 04/27/2024 10:06 AM DATABASE SECURITY EXPERT Oxygen Saturation 99% 04/27/2024 10:06 AM DATABASE SECURITY EXPERT Inhaled Oxygen Concentration - - Weight 57.8 kg (127 lb 6.4 oz) 04/27/2024 10:06 AM DATABASE SECURITY EXPERT Height 157.5 cm (5' 2 ) 04/27/2024 10:06 AM DATABASE SECURITY EXPERT Body Mass Index 23.3 04/27/2024 10:06 AM DATABASE SECURITY EXPERT Plan of Treatment Health Maintenance Due Date Last Done Comments Colon Cancer Screening-Colonoscopy 1960 Depression Screening 1960 Fall Risk Assessment 1960 Hepatitis C Screening 1960 DTaP/Tdap/Td Vaccine (1 - Tdap) 1969 Hepatitis B Screening 01/13/1976 Pneumococcal vaccine 65+ (1 of 1 - PCV) 01/13/2008 Zoster Vaccine (1 of 2) 01/13/2008 Osteoporosis Screening-Bone Density Scan 01/09/2022 01/10/2020, 10/05/2018 Well Visit 65+ 2023 Influenza Vaccine (#1) 2023 12/16/2019, 2018 Breast Cancer Screening-Mammogram 06/03/2024 06/04/2023, 10/23/2021, 09/06/2020, Additional history exists Medical Devices Implanted Type Area [employer] Laboratory Technician Device Identifier Shelf Expiration Date Model / Serial / Lot [employer] Ringloc+ 50mm Limit Hole Shell Hip Acetabular - [id number] Implanted:Qty: 1 on 08/19/2017 by Ferdinand Ascencio MD at [facility] Right: Hip [employer] [id number] 12/24/2026 [id number] / / [id number] [employer] Ringloc 36mm High Wall Liner Hip +3mm 23 Acetabular E-Poly - [id number] Implanted:Qty: 1 on 08/19/2017 by Ferdinand Ascencio MD at [facility] Right: Hip [employer] [id number] 06/25/2022 [id number] / / [id number] [employer] 6.5mm 45mm Low Profile Screw Hip Acetabular Cancellous Dome Bone - [id number] Implanted:Qty: 1 on 08/19/2017 by Ferdinand Ascencio MD at [facility] Right: Hip [employer] 08/02/2026 [id number] / / [id number] [employer] Echo Bi-Metric 12mm 140mm Noncollar Full Proximal Profile Press - [id number] Implanted:Qty: 1 on 08/19/2017 by Ferdinand Ascencio MD at [facility] Right: Hip [employer] [id number] 10/30/2025 [id number] / / [id number] [employer] G7 Type 1 Sleeve Hip Standard Offset Taper Centering Titanium - [id number] Implanted:Qty: 1 on 08/19/2017 by Ferdinand Ascencio MD at [facility] Right: Hip [employer] [id number] 11/28/2026 [id number] / / [id number] Head Femoral G7 Biolox Delta Biolox Option Od36 Mm Hip - [id number] Implanted:Qty: 1 on 08/19/2017 by Ferdinand Ascencio MD at [facility] Right: Hip [employer] [id number] 09/11/2026 [id number] / / [id number] Procedures Procedure Name Priority Date/Time Associated Diagnosis Comments XR LUMBAR SPINE AP LAT FLEX EX Schedule Routine, Read Routine (OP Routine) 04/27/2024 11:10 AM DATABASE SECURITY EXPERT Spinal stenosis of lumbar region, unspecified whether neurogenic claudication present Lumbar pain XR SCOLIOSIS AP LAT Schedule Routine, Read Routine (OP Routine) 04/27/2024 11:10 AM DATABASE SECURITY EXPERT Spinal stenosis of lumbar region, unspecified whether neurogenic claudication present Lumbar pain DEXA AXIAL SKELETON BONE DENSITY 1 OR MORE SITES Schedule Routine, Read Routine (OP Routine) 01/10/2020 10:11 AM DATABASE SECURITY EXPERT Osteoporosis screening from Last 3 Months or Most Recently Relevant to Health Maintenance Results * XR Spine Lumbar Ap Lat Flex Ext min 4 Views (04/27/2024 11:10 AM DATABASE SECURITY EXPERT) Anatomical Region Laterality Modality L-spine N/A Computed Radiogr aphy 04/28/2024 7:32 AM DATABASE SECURITY EXPERT Narrative 04/28/2024 7:35 AM DATABASE SECURITY EXPERT EXAM DESCRIPTION: XR SCOLIOSIS AP AND LATERAL; XR SPINE LUMBAR AP LAT FLEX EXT MIN 4 VIEWS REASON FOR STUDY: Lumbar pain LBP radiates down both legs x 15 yrs, NKI FINDINGS: Two views thoracolumbar spine and subsequently 4 dedicated views of the lumbar spine submitted without comparison. There is mild lumbar levoscoliosis, incompletely assessed secondary to pelvic rotation. There is mild multilevel thoracic degenerative disc disease. Moderate inferior cervical degenerative disc disease is present. There is mild L1-L2, moderate to severe L2-L3 and mild L3-S1 degenerative disc disease. There is moderate to severe inferior lumbar facet osteoarthritis. Flexion-extension views demonstrate no abnormal translation. IMPRESSION: Mild lumbar levoscoliosis, incompletely assessed secondary to pelvic rotation. Mild multilevel thoracic degenerative disc disease. Mild L1-L2, moderate to severe L2-L3 and mild L3-S1 degenerative disc disease with moderate to severe inferior lumbar facet osteoarthritis. THIS IS AN ELECTRONICALLY VERIFIED FINAL REPORT 04/28/2024 7:35 AM - Electronically signed by Edu Pearce M.D. T: Report ID: [id number] Reading Location: [id number] Procedure Note Edu Pearce MD - 04/28/2024 EXAM DESCRIPTION: XR SCOLIOSIS AP AND LATERAL; XR SPINE LUMBAR AP LAT FLEX EXT MIN 4 VIEWS REASON FOR STUDY: Lumbar pain LBP radiates down both legs x 15 yrs, NKI FINDINGS: Two views thoracolumbar spine and subsequently 4 dedicated viewsof the lumbar spine submitted without comparison. There is mild lumbar levoscoliosis, incompletely assessed secondary topelvic rotation. There is mild multilevel thoracic degenerative disc disease. Moderate inferior cervical degenerative disc disease is present. There is mild L1-L2, moderate to severe L2-L3 and mild L3-S1 degenerative discdisease. There is moderate to severe inferior lumbar facet osteoarthritis. Flexion-extension views demonstrate no abnormal translation. IMPRESSION: Mild lumbar levoscoliosis, incompletely assessed secondary to pelvicrotation. Mild multilevel thoracic degenerative disc disease. Mild L1-L2, moderate to severe L2-L3 and mild L3-S1 degenerative discdisease with moderate to severe inferior lumbar facet osteoarthritis. THIS IS AN ELECTRONICALLY VERIFIED FINAL REPORT 04/28/2024 7:35 AM - Electronically signed by Edu Pearce M.D. T: Report ID: [id number] Reading Location: [id number] us Vinod DAVIDSON IMG XR PROCEDURES Final Re sult * XR Scoliosis 2 or 3 Views (04/27/2024 11:10 AM DATABASE SECURITY EXPERT) Anatomical Region Laterality Modality Spine N/A Computed Radiogr aphy 04/28/2024 7:32 AM DATABASE SECURITY EXPERT Narrative 04/28/2024 7:35 AM DATABASE SECURITY EXPERT EXAM DESCRIPTION: XR SCOLIOSIS AP AND LATERAL; XR SPINE LUMBAR AP LAT FLEX EXT MIN 4 VIEWS REASON FOR STUDY: Lumbar pain LBP radiates down both legs x 15 yrs, NKI FINDINGS: Two views thoracolumbar spine and subsequently 4 dedicated views of the lumbar spine submitted without comparison. There is mild lumbar levoscoliosis, incompletely assessed secondary to pelvic rotation. There is mild multilevel thoracic degenerative disc disease. Moderate inferior cervical degenerative disc disease is present. There is mild L1-L2, moderate to severe L2-L3 and mild L3-S1 degenerative disc disease. There is moderate to severe inferior lumbar facet osteoarthritis. Flexion-extension views demonstrate no abnormal translation. IMPRESSION: Mild lumbar levoscoliosis, incompletely assessed secondary to pelvic rotation. Mild multilevel thoracic degenerative disc disease. Mild L1-L2, moderate to severe L2-L3 and mild L3-S1 degenerative disc disease with moderate to severe inferior lumbar facet osteoarthritis. THIS IS AN ELECTRONICALLY VERIFIED FINAL REPORT 04/28/2024 7:35 AM - Electronically signed by Edu Pearce M.D. T: Report ID: [id number] Reading Location: [id number] Procedure Note Edu Pearce MD - 04/28/2024 EXAM DESCRIPTION: XR SCOLIOSIS AP AND LATERAL; XR SPINE LUMBAR AP LAT FLEX EXT MIN 4 VIEWS REASON FOR STUDY: Lumbar pain LBP radiates down both legs x 15 yrs, NKI FINDINGS: Two views thoracolumbar spine and subsequently 4 dedicated viewsof the lumbar spine submitted without comparison. There is mild lumbar levoscoliosis, incompletely assessed secondary topelvic rotation. There is mild multilevel thoracic degenerative disc disease. Moderate inferior cervical degenerative disc disease is present. There is mild L1-L2, moderate to severe L2-L3 and mild L3-S1 degenerative discdisease. There is moderate to severe inferior lumbar facet osteoarthritis. Flexion-extension views demonstrate no abnormal translation. IMPRESSION: Mild lumbar levoscoliosis, incompletely assessed secondary to pelvicrotation. Mild multilevel thoracic degenerative disc disease. Mild L1-L2, moderate to severe L2-L3 and mild L3-S1 degenerative discdisease with moderate to severe inferior lumbar facet osteoarthritis. THIS IS AN ELECTRONICALLY VERIFIED FINAL REPORT 04/28/2024 7:35 AM - Electronically signed by Edu Pearce M.D. T: Report ID: [id number] Reading Location: [place] [id number] [place] Vinod DAVIDSON IMG XR PROCEDURES Final Re sult * Dexa Axial Skeleton Bone Density 1 or 2 Site (01/10/2020 10:11 AM DATABASE SECURITY EXPERT) Anatomical Region Laterality Modality Body N/A Radiographic Yaritza ging Narrative 01/10/2020 10:18 AM DATABASE SECURITY EXPERT Patient Name: Raffy Ray Date of : 1960 Date of scan: 01/10/2020 Bone mineral density was performed on a [employer] Discovery Densitometer. Machine Cross-calibration and Precision studies [...] of Internal Medicine 114(11): 919-923 (1990) 2) Fredy, Lancet 341 : 72-75 (1992) 3) Lawrence, Journal Bone and Mineral Research 7(6): 633-8 (1991) 4) Dilan, Journal Bone and Mineral Research 8(10):1227-33 (1992) The history and data sections of the bone mineral density scan were prepared by Demi Eddy) MANUEL who is accredited by the International Society of Clinical Densitometry. The overall patient assessment and scan interpretation were performed by Chelo Colin M.D. who is certified by the International Society of Clinical Densitometry. [id number] Chelo Colin MD IMG DXA PROCEDURES Final Resu lt from Last 3 Months or Most Recently Relevant to Health Maintenance Insurance [facility] MEDICARE SOLUTIONS AETNA SIG [id number] [facility] AETNA SIGNATURE MEDICARE MEDICARE SOLUTIONS Advance Directives For more information, please contact: [phone] * Full Code (Latest Code Status on File) Date Activated Date Inactivated Comments 08/24/2017 11:03 PM * Full Code Date Activated Date Inactivated Comments 08/24/2017 7:07 AM 08/24/2017 11:03 PM * Full Code Date Activated Date Inactivated Comments 08/19/2017 11:18 AM 08/21/2017 3:16 PM Care Teams Radar Engineering Teacher Relationship Specialty Start Date End Date Edu Morelos MD [address] [place] [address] PCP - General Emergency Medicine 04/29/24
--- OUTSIDE RECORDS SUMMARY | 2024-05-11 15:37 | XMS_ITS | Referral Summary ---
Author Organization [facility] Address [address] [place] [address] Care Team Providers Care Director Sales Name Role Phone Edu Morelos MD Primary Care Provide r Encounters Date Type Department Care Team Description 04/27/2024 10:43 AM PATIENT CENTERED CARE SPECIALIST - 04/27/2024 11:59 PM PATIENT CENTERED CARE SPECIALIST Hospital Encounter [facility] Diag Imaging [address] [place] [address] Spinal stenosis of lumbar region, unspecified whether neurogenic claudication present; Lumbar pain Discharge Disposition: Discharge to home or self care 04/27/2024 10:30 AM PATIENT CENTERED CARE SPECIALIST Office Visit [facility] [address] [place] [address] 3, [address] [place] [address] Vinod Wellington PA Spinal stenosis of lumbar region, unspecified whether neurogenic claudication present (Primary Dx); Lumbar pain; Neck pain from Last 3 Months Allergies Active Allergy Reactions Criticality Noted Date [...] TK ONE T PO D 12 10/01/19 19 025 Discontinued Active Problems Problem Noted Date [...] on file Legal Sex Female 1:24 AM PATIENT CENTERED CARE SPECIALIST Gender Identity Not on file Sexual Orientation Not on file Last Filed Vital Signs Vital Sign Reading Time Taken Comments Blood Pressure 142/78 04/27/2024 10:06 AM PATIENT CENTERED CARE SPECIALIST Pulse 71 04/27/2024 10:06 AM PATIENT CENTERED CARE SPECIALIST Temperature 36.7 C (98.1 F) 08/28/2017 12:40 PM CDT Respiratory Rate 18 04/27/2024 10:06 AM PATIENT CENTERED CARE SPECIALIST Oxygen Saturation 99% 04/27/2024 10:06 AM PATIENT CENTERED CARE SPECIALIST Inhaled Oxygen Concentration - - Weight 57.8 kg (127 lb 6.4 oz) 04/27/2024 10:06 AM PATIENT CENTERED CARE SPECIALIST Height 157.5 cm (5' 2 ) 04/27/2024 10:06 AM PATIENT CENTERED CARE SPECIALIST Body Mass Index 23.3 04/27/2024 10:06 AM PATIENT CENTERED CARE SPECIALIST Plan of Treatment Not on file Medical Devices Implanted Type Area Scientific Informatics Analyst Device Identifier Shelf Expiration Date Model / Serial / Lot [employer] Ringloc+ 50mm Limit Hole Shell Hip Acetabular - [id number] Implanted:Qty: 1 on 08/19/2017 by Ferdinand Ascencio MD at [facility] Right: Hip [employer] [id number] 12/24/2026 [id number] / / [id number] [employer] Ringloc 36mm High Wall Liner Hip +3mm 23 Acetabular E-Poly - [id number] Implanted:Qty: 1 on 08/19/2017 by Ferdinand Ascencio MD at [facility] Right: Hip [employer] [id number] 06/25/2022 [id number] / / [id number] [employer] 6.5mm 45mm Low Profile Screw Hip Acetabular Cancellous Dome Bone - [id number] Implanted:Qty: 1 on 08/19/2017 by Ferdinand Ascencio MD at [facility] Right: Hip [employer] 08/02/2026 [id number] / / [id number] [employer] Echo Bi-Metric 12mm 140mm Noncollar Full Proximal Profile Press - [id number] Implanted:Qty: 1 on 08/19/2017 by Ferdinand Ascenico MD at [facility] Right: Hip [employer] [id number] 10/30/2025 [id number] / / [id number] [employer] G7 Type 1 Sleeve Hip Standard Offset Taper Centering Titanium - [id number] Implanted:Qty: 1 on 08/19/2017 by Ferdinand Ascencio MD at [facility] Right: Hip [employer] [id number] 11/28/2026 650-1066 / / [id number] Head Femoral G7 Biolox Delta Biolox Option Od36 Mm Hip - [id number] Implanted:Qty: 1 on 08/19/2017 by Ferdinand Ascencio MD at [facility] Right: Hip [employer] [id number] 09/11/2026 650-1057 / / [id number] Procedures Procedure Name Priority Date/Time Associated Diagnosis Comments XR LUMBAR SPINE AP LAT FLEX EX Schedule Routine, Read Routine (OP Routine) 04/27/2024 11:10 AM PATIENT CENTERED CARE SPECIALIST Spinal stenosis of lumbar region, unspecified whether neurogenic claudication present Lumbar pain XR SCOLIOSIS AP LAT Schedule Routine, Read Routine (OP Routine) 04/27/2024 11:10 AM PATIENT CENTERED CARE SPECIALIST Spinal stenosis of lumbar region, unspecified whether neurogenic claudication present Lumbar pain DEXA AXIAL SKELETON BONE DENSITY 1 OR MORE SITES Schedule Routine, Read Routine (OP Routine) 01/10/2020 10:11 AM PATIENT CENTERED CARE SPECIALIST Osteoporosis screening from Last 3 Months or Most Recently Relevant to Health Maintenance Results * XR Spine Lumbar Ap Lat Flex Ext min 4 Views (04/27/2024 11:10 AM PATIENT CENTERED CARE SPECIALIST) Anatomical Region Laterality Modality L-spine N/A Computed Radiogr aphy 04/28/2024 7:32 AM PATIENT CENTERED CARE SPECIALIST Narrative 04/28/2024 7:35 AM PATIENT CENTERED CARE SPECIALIST EXAM DESCRIPTION: XR SCOLIOSIS AP AND LATERAL; [...] by Edu Pearce M.D. T: Report ID: [id number] Reading Location: [id number] Procedure Note Edu Pearce MD - 04/28/2024 [...] by Edu Pearce M.D. T: Report ID: [id number] Reading Location: [id number] us Vinod DAVIDSON IMG XR PROCEDURES Final Re sult * XR Scoliosis 2 or 3 Views (04/27/2024 11:10 AM PATIENT CENTERED CARE SPECIALIST) Anatomical Region Laterality Modality Spine N/A Computed Radiogr aphy 04/28/2024 7:32 AM PATIENT CENTERED CARE SPECIALIST Narrative 04/28/2024 7:35 AM PATIENT CENTERED CARE SPECIALIST EXAM DESCRIPTION: XR SCOLIOSIS AP AND LATERAL; [...] by Edu Pearce M.D. T: Report ID: [id number] Reading Location: [id number] Procedure Note Edu Pearce MD - 04/28/2024 [...] by Edu Pearce M.D. T: Report ID: [id number] Reading Location: [place] [id number] [place] Vinod DAVIDSON IMG XR PROCEDURES Final Re sult * Dexa Axial Skeleton Bone Density 1 or 2 Site (01/10/2020 10:11 AM PATIENT CENTERED CARE SPECIALIST) Anatomical Region Laterality Modality Body N/A Radiographic Yaritza ging Narrative 01/10/2020 10:18 AM PATIENT CENTERED CARE SPECIALIST Patient Name: Raffy Ray Date of : 1960 Date of scan: 01/10/2020 Bone mineral density was performed on a [employer] Discovery Densitometer. Machine Cross-calibration and Precision [...] by the International Society of Clinical Densitometry. [id number] Chelo Colin MD IMG DXA PROCEDURES Final Resu lt from Last 3 Months or Most Recently Relevant to Health Maintenance Insurance [facility] MEDICARE SOLUTIONS AET SIG [id number] [facility] AETNA SIGNATURE MEDICARE MEDICARE [employer] Advance Directives For more information, please contact: [phone] * Full Code (Latest Code Status on File) Date Activated Date Inactivated Comments 08/24/2017 11:03 PM * Full Code Date Activated Date Inactivated Comments 08/24/2017 7:07 AM 08/24/2017 11:03 PM * Full Code Date Activated Date Inactivated Comments 08/19/2017 11:18 AM 08/21/2017 3:16 PM Care Teams Director Sales Relationship Specialty Start Date End Date Edu Morelos MD [address] [place] [address] PCP - General Emergency Medicine 04/29/24
--- OUTSIDE RECORDS SUMMARY | 2024-05-11 15:37 | XMS_ITS | Encounter Summary ---
Author Organization [facility] Address [address] [facility] [place] [address] Care Team Providers Care Senior Executive Compensation Analyst Name Role Phone Unavailable Primary Care Provider Unavailabl e Encounter Details Date Type Department Care Team (Late st Contact Info) Description 12/16/2023 Lab Requisition [facility] - DermPath Lab [address] [place] [id number] Aniya Logan CMO-ANESTHESIOLOGIST [address] [place] [address] Social History Tobacco Use Types Packs/Day Years [...] PM CDT) Case Report Dermatopathology Report Case: [id number] Authorizing Provider: Aniya Logan, Collected: 12/16/2023 01:51 PM CMO-ANESTHESIOLOGIST Ordering Location: [facility] Physician [facility] - Received: 12/17/2023 12:27 PM DermPath Lab Pathologist: Daniela Duarte MD Specimens: A) - Skin, left back B) - Skin, mid back 12:38 PM CDT DERMATOPATHOLOGY LABORATORY Final Diagnosis Specimen A. SKIN, left back: SEBORRHEIC KERATOSIS (L82.1) Specimen B. SKIN, mid back: LENTIGINOUS MELANOCYTIC NEVUS, JUNCTIONAL TYPE, IRRITATED AND INFLAMED (D22.5) (see microscopic description and comment) 12:38 PM [facility] DERMATOPATHOLOGY LABORATORY Clinical History A-B: R/O Atypia 12:38 PM [facility] DERMATOPATHOLOGY LABORATORY Gross Description Specimen A: Received [...] measuring 9x9x1 mm. Jar 0. 12:38 PM [facility] DERMATOPATHOLOGY LABORATORY Microscopic Description Specimen A. [...] larger lesion, these findings may not be lead customer service representative of the entire lesion. Clinicopathologic correlation is recommended. 12:38 PM [facility] DERMATOPATHOLOGY LABORATORY Disclaimer An external and internal positive and negative controls are appropriate for the histochemical, immunohistochemical and immunofluorescence stain(s) in this case (if any), except where stated explicitly. The performance characteristics of the stain(s) cited in this report were developed and its performance characteristic determined by the Dermatopathology Laboratory at [facility], directed by Dr. Noah Rosas. These tests need not be, and therefore are not, approved by the [place] Food and Drug Administration. The tests are used for clinical purposes. Billing Codes Specimen Charges Stain Charges 06702 03878 1 1 12:38 PM [facility] DERMATOPATHOLOGY LABORATORY Embedded Images 12:38 PM [facility] DERMATOPATHOLOGY LABORATORY Pathology/Cytology TISSUE SPECIMEN FROM SKIN / Unknown 12/16/2023 1:51 PM CDT 12/17/2023 12:27 PM CDT Miscellaneous samples (specimen) TISSUE SPECIMEN FROM SKIN / Unknown 12/16/2023 1:51 PM CDT 12/17/2023 12:27 PM CDT Aniya Zelayacarolann CMO-ANESTHESIOLOGIST LAB - PATH OLOGY/CYTOLOGY ORDERABLES DERMATOPATHOLOGY LABORATORY [facility] - Department of Dermatology [facility] Medicine [address] [place] [address], [address] [phone] documented in this encounter Visit Diagnoses Not on filedocumented in this encounter
--- OUTSIDE RECORDS SUMMARY | 2024-05-11 15:37 | XMS_ITS | Patient Health Summary ---
Author Organization [facility] Address [address] [place] [address] Care Team Providers Care Wirer Passenger Car Name Role Phone Unavailable Primary Care Provider Unavailabl e Note from [facility],non-owned Affiliates and Associated Physician Practices is amultiple site organization consisting of ambulatory clinics and hospital sitesin [place], [place], [place] and [place]. This disclosure is being madepursuant to the Care Everywhere program and may not contain all information available regarding this patient. Last updated 17.[facility] [employer] Social History Tobacco Use Types Packs/Day Years Used Date Smoking Tobacco: Never Assessed Sex and Gender Information Value Date Recorded Sex Assigned at Not on file Gender Identity Not on file Sexual Orientation Not on file Procedures * DERMATOPATHOLOGY(Performed 12/16/2023) Results * DERMATOPATHOLOGY (12/16/2023 1:51 PM CDT) Case Report Dermatopathology Report Case: [id number] Authorizing Provider: Aniya Logan, Collected: 12/16/2023 01:51 PM SHIPS EQUIPMENT ENGINEER-ASSOCIATE APPLICATION DEVELOPER Ordering Location: [facility] - Received: 12/17/2023 [...] measuring 9x9x1 mm. Jar 0. 12:38 PM [facility] DERMATOPATHOLOGY LABORATORY Microscopic Description Specimen A. [...] larger lesion, these findings may not be hr representative of the entire lesion. Clinicopathologic correlation is recommended. 12:38 PM [facility] DERMATOPATHOLOGY LABORATORY Disclaimer An external and internal positive and negative controls are appropriate for the histochemical, immunohistochemical and immunofluorescence stain(s) in this case (if any), except where stated explicitly. The performance characteristics of the stain(s) cited in this report were developed and its performance characteristic determined by the Dermatopathology Laboratory at [facility], directed by Dr. Noah Rosas. These tests need not be, and therefore are not, approved by the [place] Food and Drug Administration. The tests are used for clinical purposes. Billing Codes Specimen Charges Stain Charges 55420 [id number] 1 1 12:38 PM CDT DERMATOPATHOLOGY LABORATORY Embedded Images 12:38 PM T DERMATOPATHOLOGY LABORATORY Pathology/Cytology TISSUE SPECIMEN FROM SKIN / Unknown 12/16/2023 1:51 PM CDT 12/17/2023 12:27 PM CDT Miscellaneous samples (specimen) TISSUE SPECIMEN FROM SKIN / Unknown 12/16/2023 1:51 PM CDT 12/17/2023 12:27 PM CDT Aniya Wade Doreen CINTRONN-ASSOCIATE APPLICATION DEVELOPER LAB - PATH OLOGY/CYTOLOGY ORDERABLES Performing Organization Address City/State/[facility] Co de Phone Number DERMATOPATHOLOGY LABORATORY [facility] - Department of Dermatology [facility], 3rd Floor [address] [phone]
== END 2024-05-11 13:58 | disposition home or self-care (01) ==
PROVIDERS: PCP Emergency Medicine
DX: M48.061 Spinal stenosis, lumbar region without neurogenic claudication (principal); M43.06 Spondylolysis, lumbar region
CPT/HCPCS: 72131

== ENCOUNTER 2024-05-16 14:22 | Outpatient (CLI) | payer MEDICARE, SELFPAY ==
--- NOTE | ~2024-05-16 | MR_ITS ---
EXAMINATION: MR cervical spine wo con DATE: 05/16/2024 14:53 INDICATION: Neck pain. TECHNIQUE: Magnetic resonance imaging (MRI) of the cervical spine was performed without intravenous c ontrast. COMPARISON: Cervical spine MRI 01/03/2019 FINDINGS: There is 2 mm anterolisthesis of C6 on C7. Vertebral body heights are normal. There is aura rely decreased disc height at C5-C6 and C6-C7. The spinal cord signal intensity is normal. The follow ing disc levels are specifically discussed: C2-C3: The disc does not extend beyond the endplate margin. There is no uncovertebral joint osteoarth ritis. There is severe right and mild left facet joint osteoarthritis. There is mild right neural for aminal stenosis. There is no central canal stenosis. C3-C4: The disc does not extend beyond the endplate margin. There is mild left uncovertebral joint os teoarthritis. There is severe bilateral facet joint osteoarthritis. There is mild right neural forami nal stenosis. There is no central canal stenosis. C4-C5: The disc does not extend beyond the endplate margin. There is no uncovertebral joint osteoarth ritis. There is severe right and mild left facet joint osteoarthritis. There is no neural foraminal s tenosis. There is no central canal stenosis. C5-C6: The disc is bulging. There is severe bilateral uncovertebral joint osteoarthritis. There is se keysha bilateral facet joint osteoarthritis. There is mild bilateral neural foraminal stenosis. There i s no central canal stenosis. C6-C7: The disc is bulging. There is severe bilateral uncovertebral joint osteoarthritis. There is se keysha bilateral facet joint osteoarthritis. There is mild bilateral neural foraminal stenosis. There i s no central canal stenosis. C7-T1: The disc does not extend beyond the endplate margin. There is no uncovertebral joint osteoarth ritis. There is moderate right and mild left facet joint osteoarthritis. There is mild bilateral neur al foraminal stenosis. There is no central canal stenosis. IMPRESSION: 1. Severe cervical spondylosis, worsened from 12/24/2018. Reviewed, dictated and finalized at location B.
== END 2024-05-16 14:23 | disposition home or self-care (01) ==
PROVIDERS: PCP Emergency Medicine
DX: M47.892 Other spondylosis, cervical region (principal)
CPT/HCPCS: 72141

== ENCOUNTER 2024-07-05 16:19 | Outpatient (CLI) | payer MEDICARE, SELFPAY ==
--- NOTE | ~2024-07-05 | MM_ITS ---
EXAMINATION: MM screening memo BI w mat HISTORY: Screening TECHNIQUE: Craniocaudal and mediolateral oblique 3-D tomosynthesis images were obtained and synthetic 2-D images were generated. CAD analysis was submitted and interpreted. COMPARISON: Comparison to multiple prior studies sequentially, with oldest reviewed study dated 01/08. BREAST PARENCHYMAL COMPOSITION: Dense: The breasts are heterogeneously dense, which may obscure small masses FINDINGS: There is no evidence of suspicious mass, calcification, or architectural distortion to sugg est malignancy in either breast. There has been no suspicious interval change. IMPRESSION: 1. No mammographic evidence of malignancy. 2. Recommend routine screening mammography in one year. BI-RADS Category 1: Negative Reviewed, dictated and finalized at location A.
--- OUTSIDE RECORDS SUMMARY | 2024-07-05 17:33 | XMS_ITS | Encounter Summary ---
Author Organization [facility] Address [address] [place] [address] Care Team Providers Care Correctional Agency Director Name Role Phone Edu Morelos MD Primary Care Provide r Guzman Kam Mary DO Unavailable [phone] Encounter Details Date Type Department Care Team (Late st Contact Info) Description 07/05/2024 Orders Only [facility] PreAdmission Testing [address] [place] [id number] Michelle Veloz RN Social History Tobacco Use Types Packs/Day Years Used Date Smoking Tobacco: Former Cigarettes Smokeless Tobacco: Never Alcohol Use Standard Drinks/Week Comments Yes 0 (1 standard drink = 0.6 oz pur e alcohol) social AUDIT-C Answer Date Recorded Q1: How often do you have a drink containing alc ohol? Monthly or less 05/18/2024 Q2: How many drinks containi ng alcohol do you have on a typical day when you are drinking? 1 or 2 05/18/2024 Q3: How often do you have si x or more drinks on one occasion? 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 Gender Identity Not on file Sexual Orientation Not on file documented as of this encounter Plan of Treatment Upcoming Encounters Date Type Department Care Team (Latest Contact Info) Description 07/21/2024 7:30 AM CDT Hospital Encounter [facility] OR [address] [place] [address] Ranulfo Morton MD [address] [place] [address] 07/21/2024 7:30 AM CDT Anesthesia Event [facility] OR [address] [place] [address] Erika Phipps, CALENDERING MACHINE OPERATOR [address] [place] [address] 07/21/2024 7:30 AM CDT - 07/21/2024 9:30 AM CDT Surgery [facility] [place] [address] [place] [address] Ranulfo Morton MD [address] [place] [address] LUMBAR 4-LUMBAR 5 MINIMALLY INVASIVE DECOMPRESSION Scheduled Procedures Name Priority Associated Diagnoses Date/Ti me DECOMPRESSION LUMBAR LAMINECTOMY Lumbar pain Spinal stenosis of lumbar region, unspecified whether neurogenic claudication present 07/21/2024 7:30 AM CDT documented as of this encounter Visit Diagnoses Not on filedocumented in this encounter Care Teams Correctional Agency Director Relationship Specialty Start Date End Date Edu Morelos MD [address] [facility] [place] [address] PCP - General Emergency Medicine 04/29/24 Guzman Kam DO [address] [place] [address] Resident Medical Officer Cardiology 06/16/24 documented as of this encounter
--- OUTSIDE RECORDS SUMMARY | 2024-07-05 17:33 | XMS_ITS | Encounter Summary ---
Author Organization [facility] Address [address] [place] [address] Care Team Providers Care Vp Securities Name Role Phone Charlie Alfredo MD Primary Care Provide r Edu Morelos MD Primary Care Provide r Guzman Kam Mary DO Unavailable Encounter Details Date Type Department Care Team (Late st Contact Info) Description 08/21/2017 Documentation [facility] Case Management [id number] [place] [address] Salome Mckinnon RN Social History Tobacco Use Types Packs/Day Years Used Date Smoking Tobacco: Former Comments No Sex and Gender Information Value Date Recorded Sex Assigned at Not on file Legal Sex Female 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 Gender Identity Not on file Sexual Orientation Not on file documented as of this encounter Plan of Treatment Upcoming Encounters Date Type Department Care Team (Latest Contact Info) Description 07/21/2024 7:30 AM CDT Hospital Encounter [facility] [place] [address] [place] [address] Ranulfo Morton MD [facility] [address] [place] [address] 07/21/2024 7:30 AM CDT Anesthesia Event [facility] [place] [address] [place] [address] Erika Phipps NURSERY LABORER [address] [place] [address] 07/21/2024 7:30 AM CDT - 07/21/2024 9:30 AM CDT Surgery [facility] [place] [address] [place] [address] Ranulfo Morton MD [address] [facility] [address] [place] [address] LUMBAR 4-LUMBAR 5 MINIMALLY INVASIVE DECOMPRESSION Scheduled Procedures Name Priority Associated Diagnoses Date/Ti me DECOMPRESSION LUMBAR LAMINECTOMY Lumbar pain Spinal stenosis of lumbar region, unspecified whether neurogenic claudication present 07/21/2024 7:30 AM CDT documented as of this encounter Visit Diagnoses Not on filedocumented in this encounter Care Teams Vp Securities Relationship Specialty Start Date End Date Charlie Alfredo MD PCP - General 06/30/17 04/28/24 Edu Morelos MD [address] [place] [address] PCP - General Emergency Medicine 04/29/24 Guzman Kam DO [address] [place] [address] Cop Examiner Cardiology 06/16/24 documented as of this encounter
--- OUTSIDE RECORDS SUMMARY | 2024-07-05 17:33 | XMS_ITS | Data Portability ---
Author Organization [facility] [place] Address [address] [place] [address] Assessment Encounter Date Assessment Date Assessment LastModified [...] analysis , blood or tissue 2021 022 [employer], [address], [place], [address], 21:38:45 Referral None recorded . Procedures None recorded . Surgeries None recorded . Imaging MAMMO, screenin g, digital, bilatera l 2023 024 [facility], [address], [place], [address], 4 05:00:53 US, pelvis 2021 022 [email or web address] [place], [address], [address], [place], [address], 18:10:40 US, transvag inal 2021 022 [email or web address] [place], [address], [place], [address], 18:10:40 MAMMO, screenin g, bilatera l 2021 [facility] [place] [facility], [address], [place], [address], 16:20:34 US, pelvis, complete 2021 022 [email or web address] [place], [address], [place], [address], 19:05:29 Medication Orders None recorded . Patient [...] Techn ical servi fatmata provi ded by [facility] [employer] [facility], d/b/a [facility], [address] [facility] [address] [place] [address] Antione Hernandez MD, Labor [employer] [facility]. Case revie wed and diagn osis rende red at [facility] [employer] [facility] [employer], d/b/a [facility], [address], [place] [address] Ramu Isaac MD, Labor [employer] tor. CONFI DENTI AL Not Available [facility]) [address], [place], [address], 07/15/2019 16:33:51 08/02/19 22 08/01/2021 INVIT AE COMMO N HERED ITARY CANCE RS PANEL abnormal status abnormal Not Available [employer] [address], [place], [address], 08/16/2021 21:38:45 07/14/19 20 07/14/2019 MAMMO , scree cecile, bilat eral No observ ation record ed. ajith [facility] (Imaging) [address], [place], [address], 07/25/2019 12:00:51 07/25/19 20 07/14/2019 MAMMO , scree cecile, bilat eral No observ ation record ed. [email or web address] Not Available 2019 12:00:52 09/07/19 21 MAMMO , scree cecile, bilat eral No observ ation record ed. [email or web address] Not Available 2020 15:34:07 08/16/19 22 08/15/2021 US, pelvi s No observ ation record ed. [email or web address] [place] [address], [place], [address], 08/15/2021 13:01:47 08/16/19 22 08/15/2021 US, trans vagin al No observ ation record ed. [email or web address] [place] [address], [place], [address], 08/15/2021 13:01:56 08/16/19 22 08/15/2021 US, pelvi s No observ ation record ed. baron Carpio [address], [place], [address], 08/19/2021 09:56:42 10/24/19 22 10/23/2021 MAMMO , scree cecile, bilat eral No observ ation record ed. [address], [place], [address], 10/30/2021 17:34:45 06/04/19 24 06/04/2023 MAMMO , scree cecile, bilat eral No observ ation record ed. [address], [place], [address], 06/05/2023 12:02:46 Result Notes None recorded. Procedures Surgical History Date Name Laterality Status Provider Name and Address Organization Details Recorded Time 020 Skin Tag Removal completed KATHERINE Chun- [address], [place], [address], [place] [facility] 07/18/2019 10:35:38 019 Date of Last Pap Smear completed Charley Adamson [facility] 08/01/2021 11:57:50 012 Colonoscopy completed [facility] 07/21/2023 09:34:51 009 cholecystectomy completed [facility] 07/21/2023 09:34:45 000 Tubal Ligation completed [facility] 07/21/2023 09:35:11 000 Total Hysterectomy completed [facility] 07/21/2023 09:34:59 Imaging Results Imaging Date Name Status LastModified by Organization Details LastModified Time 07/14/2019 MAMMO, screening, bilateral completed [address] (Imaging) [address] [facility] [address] [place] [address], [address], 07/25/2019 12:00:51 07/14/2019 MAMMO, screening, bilateral [facility] Information not available 07/25/2019 12:00:52 09/06/2020 MAMMO, screening, bilateral completed [email or web address] Information not available 09/07/2020 15:34:07 08/15/2021 US, pelvis completed [email or web address] J[address], [place], [address], 08/15/2021 13:01:47 08/15/2021 US, transvaginal completed [email or web address] Nelia hemphill [address], [place], [address], 08/15/2021 13:01:56 08/15/2021 US, pelvis completed baron Carpio [address], [place], [address], 08/19/2021 09:56:42 10/23/2021 MAMMO, screening, bilateral completed [place] [id number] [facility] [address] [place] [address], [address], 10/30/2021 17:34:45 06/04/2023 MAMMO, screening, bilateral completed [address], [place], [address], 06/05/2023 12:02:46 Procedure Notes None recorded. Medical Equipment None Reported. Allergies Allergen ID Allergen Name Allergen Category Reaction Reaction Severity Criticality Documentation Date Start Date Code Code System Note Provider Name and Address Organization Details Recorded Time 430 tramadol medicatio n Not available Not available Not available 07/07/2019 90424 RxNorm Isabela Lacey [place], [place] - [facility] 0 15:26:50 Medications Name Sig Start [...] Prescrib ed Elsewher e: Yes Loca tion: [facility] M odify By: shasha swanson [...] Elsewher e: Yes Loca tion: Nelia hemphill [facility] odify By: bruna swanson DateTime : 06/18/19 12 02:30:00 PM Not Available Not Available Not Available Cipro 500 mg tablet take 1 tablet by oral route every 12 hours 04/20 completed Prescrib ed Elsewher e: No Locat ion: Nelia hemphill [facility] odify By: bruna [email or web address] DateTime : [...] Elsewher e: No Locat ion: Nelia hemphill [facility] odify By: bruna swanson DateTime : [...] Elsewher e: Yes Loca tion: Nelia hemphill [facility] odify By: bruna swanson DateTime : [...] Available No t Available [employer] [facility] spacer DIRECTED 07/20 completed Not Available Not Available Not Available Multi Vitamin 07/20 completed Not Available Not Available Not Available Vitals Date Recorded Body height Body mass index (BMI) Body weight Systolic blood pressure Diastolic blood pressure Provider Name and Address Organization Details Last Updated DateTime 08/01/2021 157.48 cm 24 kg/m2 29356.6 g 125 mm[Hg] 73 mm[Hg] [facility] 2 11:56:18 Date Recorded Body height Body mass index (BMI) Body weight Systolic blood pressure Diastolic blood pressure Provider Name and Address Organization Details Last Updated DateTime 08/19/2021 157.48 cm 23.2 kg/m2 43298.23 g 134 mm[Hg] 78 mm[Hg] [facility] 2 09:34:10 Date Recorded Body height Body mass index (BMI) Body weight Systolic blood pressure Diastolic blood pressure Provider Name and Address Organization Details Last Updated DateTime 07/21/2023 157.48 cm 23.6 kg/m2 05906.42 g 119 mm[Hg] 79 mm[Hg] Zaria Preston [facility] 4 09:29:55 Date Recorded Body height Body mass index (BMI) Body weight Systolic blood pressure Diastolic blood pressure Provider Name and Address Organization Details Last Updated DateTime 07/12/2019 1920.24 cm 0.2 kg/m2 55103.79 g 135 mm[Hg] 57 mm[Hg] Isabela Lacey [facility] 0 10:39:48 Social History Question [...] ICD10 Code Diagnosis Note 2698 Jessica Nuno [facility] [address] [address] 07/07/2019 15:36:54 07/07/2019 16:21:49 Routine gynecologic examination done [id number] 9101 Z01.419 Take Calcium with Vitamin D 12-1500mg daily. Do monthly self breast exams. It is advised to get annual flu shot in the fall and she could obtain at [facility] or [facility] care clinic. If you haven't received [...] schedule appt for this prn. 3067 [facility] [address] [address] 07/12/2019 10:27:54 07/12/2019 10:59:59 Anal skin tag [id number] K64.4 Patient presented today for removal of [...] counseling and review of plan of care. [id number] Ofelia Singh [place] [address] [address] 08/01/2021 11:41:46 08/01/2021 13:15:43 Family history of breast cancer 382381415 Z80.3 Screening for malignant neoplasm of breast 547222859 Z12.39 Pain in pelvis 19041493 R10.2 Gynecologi c examination 82163127 Z01.419 Take Calcium with Vitamin D 12-1500mg daily. Do monthly self breast exams. It is advised to get annual flu shot in the fall and she could obtain at [facility] or [facility] care clinic. If you haven't received [...] with the patient was over 35 minutes 555558 Soo Alvarenga [place] [address] [address] 08/15/2021 12:28:36 08/15/2021 14:15:09 Pain in pelvis 40828602 R10.2 729882 KATHERINE Andres [place] [address],[facility] [place] [address] 08/19/2021 09:26:14 08/19/2021 10:40:26 Pain in pelvis 98634857 R10.2 Here today to discuss u/s results. [...] counseling and review of plan of care. 625776 KATHERINE Andres [place] [address] [address] 07/21/2023 09:25:28 07/21/2023 09:59:55 Gynecologic examination 60712936 Z01.419 WWEpaps d/c'd unless otherwise indicatedd eclined STI screenmamm ogram due next 5col onoscopy UTD/PCP ordersdexa UTD/PCP managesrou paige labs UTD/PCPRTC in 1 yr or sooner if needed Take Calcium with Vitamin D daily. Do monthly self breast exams. It is advised to get annual flu shot in the fall and she could obtain at [facility] or [facility] care clinic. If you haven't received [...] email Screening for malignant neoplasm of breast 693623889 Z12.39 Health Concerns Section Related Observation LastModified by Organization Detai ls LastModified Time None Recorded Concern Status LastModified by Organization Details LastModified Time None Recorded Advance Directives Directive None Recorded Payers Encounter Date Sequence Insurance Name Policy Number Policy Yung Covered Member ID Yung Member ID Guarantor Name 07/12/2019 1 [employer] [address] ([facility]) Butch Ray [id number] Amita Ray 08/01/2021 1 [employer] [address] ([facility]) Butch Ray [id number] Amita Ray 08/15/2021 1 [employer] [address] ([facility]) Butch Ray [id number] Amita Ray 08/19/2021 1 [employer] [address] ([facility]) Butch Ray [id number] Amita Ray 07/21/2023 1 [employer] ([place]) [id number] Butch Ray [id number] Amita Ray Notes Date Note Type Note Provider Name and Address Organization Details Recorded Time 07/12/2019 text/html Patient presents today for removal of katey-anal skin tag which has been bothering her when she wipes. KATHERINE Chun- [address], [place], [address], [facility] 07/18/2019 10:38:54 08/01/2021 text/html Annual Blood Bank Assistant Post-MenopausalReport ed bypatient.Menopausal Symptoms:no menopausal symptoms; normal [...] schedule mammogram KATHERINE Andres [address], [place], [address], [facility] 08/01/2021 12:40:13 08/19/2021 text/html Here to discuss u/s results [address], [place], [address], [facility] 08/19/2021 09:56:09 07/21/2023 text/html Annual Blood Bank Assistant Post-MenopausalReport ed bypatient.Menopausal Symptoms:no menopausal symptoms; normal [...] PCP manages (was seeing bone specialist in [facility] but states now PCP is managing. No longer on alendronate, takes calcium/vitamin D per pt) KATHERINE Andres [address], [place], [address], [place] [facility] 07/21/2023 09:58:46 OBGyn Episode Ob Episode Information Episode Created Date Number of Fetuses Patient Bloodtype Patient rh Status Prepregnancy Weight lbs Domestic Partner Domestic Partner Phone Father Name Second Grade Teacher Status 07/07/19 20 1 CLOSED Fetus Data [...] Domestic Partner Domestic Partner Phone Father Name Second Grade Teacher Status 07/07/19 20 1 CLOSED Fetus Data [...] Domestic Partner Domestic Partner Phone Father Name Second Grade Teacher Status 07/07/19 20 1 CLOSED Fetus Data [...]
--- OUTSIDE RECORDS SUMMARY | 2024-07-05 17:33 | XMS_ITS | Clinical Summary ---
Author Organization [facility] Address [address] [place] [address] Care Team Providers Care Pasta Maker Name Role Phone Unavailable Primary Care Provider Unavailabl e Source Comments [facility] [employer],non-owned Affiliates and Associated Physician Practices is amultiple site organization consisting of ambulatory clinics and hospital sitesin [place], [place], [place] and [place]. This disclosure is being madepursuant to the Care Everywhere program and may not contain all information available regarding this patient. 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
--- OUTSIDE RECORDS SUMMARY | 2024-07-05 17:33 | XMS_ITS | Encounter Summary ---
Author Organization [facility] Address [address] [place] [address] Care Team Providers Care Perinatal Director Name Role Phone Unavailable Primary Care Provider Unavailabl e Encounter Details Date Type Department Care Team (Late st Contact Info) Description 12/16/2023 Lab Requisition [facility] - DermPath Lab [address] [place] [address] Aniya Logan APRN-PLASTIC BATTERY ASSEMBLER [address] [place] [address] Social History Tobacco Use Types Packs/Day Years Used Date Smoking Tobacco: Never Assessed Comments Unknown Sex and Gender Information Value Date Recorded Sex Assigned at Not on file Legal Sex Female 6:33 PM 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 Gender Identity Not on file Sexual Orientation Not on file documented as of this encounter Plan of Treatment Not on file documented as of this encounter Procedures Procedure Name Priority Date/Time Associated Diagnosis Comments DERMATOPATHOLOGY Routine 12/16/2023 1:51 PM CDT documented in this encounter Results * DERMATOPATHOLOGY (12/16/2023 1:51 PM CDT) Case Report Dermatopathology Report Case: [id number] Authorizing Provider: Aniya Logan, Collected: 12/16/2023 01:51 PM TETRYL NITRATOR OPERATOR-PLASTIC BATTERY ASSEMBLER Ordering Location: [facility] - Received: 12/17/2023 12:27 PM DermPath Lab Pathologist: Daniela Duarte MD Specimens: A) - Skin, left back B) - Skin, mid back 12:38 PM CDT DERMATOPATHOLOGY LABORATORY Final Diagnosis Specimen A. SKIN, left back: SEBORRHEIC KERATOSIS (L82.1) Specimen B. SKIN, mid back: LENTIGINOUS MELANOCYTIC NEVUS, JUNCTIONAL TYPE, IRRITATED AND INFLAMED (D22.5) (see microscopic description and comment) 12:38 PM [facility] DERMATOPATHOLOGY [facility]ORATORY Clinical History A-B: R/O Atypia 12:38 PM [facility] DERMATOPATHOLOGY LABORATORY Gross Description Specimen A: [...] measuring 9x9x1 mm. Jar 0. 12:38 PM [facility] DERMATOPATHOLOGY [facility]ORATORY Microscopic Description Specimen [...] larger lesion, these findings may not be wine sales representative of the entire lesion. Clinicopathologic correlation is recommended. 12:38 PM [facility] DERMATOPATHOLOGY LABORATORY Disclaimer An external and internal positive and negative controls are appropriate for the histochemical, immunohistochemical and immunofluorescence stain(s) in this case (if any), except where stated explicitly. The performance characteristics of the stain(s) cited in this report were developed and its performance characteristic determined by the Dermatopathology Laboratory at [facility], directed by Dr. Noah Rosas. These tests need not be, and therefore are not, approved by the [place] Food and Drug Administration. The tests are used for clinical purposes. Billing Codes Specimen Charges Stain Charges 85616 36248 1 1 12:38 PM [facility] DERMATOPATHOLOGY [facility]ORATORY Embedded Images 12:38 PM [facility] DERMATOPATHOLOGY [facility]ORATORY Pathology/Cytology TISSUE SPECIMEN FROM SKIN / Unknown 12/16/2023 1:51 PM CDT 12/17/2023 12:27 PM CDT Miscellaneous samples (specimen) TISSUE SPECIMEN FROM SKIN / Unknown 12/16/2023 1:51 PM CDT 12/17/2023 12:27 PM CDT Aniya Wade Doreen TETRYL NITRATOR OPERATOR-PLASTIC BATTERY ASSEMBLER LAB - PATHOLOGY/CY TOLOGY ORDERABLES Final Result DERMATOPATHOLOGY LABORATORY [facility] - Department of Dermatology [facility] [address] [place] [address], [address] [phone] documented in this encounter Visit Diagnoses Not on filedocumented in this encounter
--- OUTSIDE RECORDS SUMMARY | 2024-07-05 17:33 | XMS_ITS | Referral Summary ---
Author Organization [facility] Address [address] [place] [address] Care Team Providers Care Bacteriology Teacher Name Role Phone Edu Morelos MD Primary Care Provide r Guzman Kam Mary DO Unavailable [phone] Encounters Date Type Department Care Team Description 07/05/2024 Orders Only [facility] PreAdmission Testing [address] [place] [address] Michelle Veloz, RN 06/10/2024 Documentation [facility] [address] [place] [address], [address] [place] [address] Claudia Loyd, RN 05/18/2024 2:00 PM CDT Office Visit [facility] [address] [place] [address] 3, [address] [place] [address] Ranulfo Morton MD Neck pain (Primary Dx) 05/17/2024 Telephone [facility] Scheduling [address] [place] [address] Madiha Guillermo 05/16/2024 - 05/16/2024 11:59 PM CDT Hospital Encounter [facility] [address] [place] [address] Discharge Disposition: Discharge to home or self care 04/27/2024 10:43 AM RELOCATION COUNSELOR - 04/27/2024 11:59 PM RELOCATION COUNSELOR Hospital Encounter [facility] Diag Imaging [address] [place] [address] Spinal stenosis of lumbar region, unspecified whether neurogenic claudication present; Lumbar pain Discharge Disposition: Discharge to home or self care 04/27/2024 10:30 AM RELOCATION COUNSELOR Office Visit [facility] [address] [place] [address], [address] [place] [address] Vinod Wellington PA Spinal stenosis [...] (three) times a day 45 tablet 11 06/11/19 25 026 Active gabapentin (NEURONTIN) 600 mg tabletIndication s:Spinal stenosis of lumbar region, unspecified whether neurogenic claudication present,Lumbar pain Take 0.5 tablets (300 mg total) by mouth 3 (three) times a day 45 tablet 11 04/27/19 25 025 Discontinued Active Problems Problem Noted Date Diagnosed Date Lumbar pain 06/10/2024 Spinal stenosis of lumbar region 06/10/2024 Aftercare following right hip joint replacement surgery [...] on file Legal Sex Female 1:24 AM RELOCATION COUNSELOR Gender Identity Not on file Sexual Orientation Not on file Last Filed Vital Signs Vital Sign Reading Time Taken Comments Blood Pressure 146/87 05/18/2024 1:23 PM CDT Pulse 74 05/18/2024 1:23 PM CDT Temperature 36.7 C (98.1 F) 08/28/2017 12:40 PM CDT Respiratory Rate 18 05/18/2024 1:23 PM CDT Oxygen Saturation 99% 05/18/2024 1:23 PM CDT Inhaled Oxygen Concentration - - Weight 55.8 kg (123 lb) 05/18/2024 1:23 PM CDT Height 157.5 cm (5' 2 ) 05/18/2024 1:23 PM CDT Body Mass Index 22.5 05/18/2024 1:23 PM CDT Plan of Treatment Upcoming Encounters Date Type Department Care Team (Latest Contact Info) Description 07/21/2024 7:30 AM CDT Hospital Encounter [facility] [place] [address] [place] [address] Ranulfo Morton MD [address] [place] [address] 07/21/2024 7:30 AM CDT Anesthesia Event [facility] [place] [address] [place] [address] Erika Phipps NP [address] [place] [address] 07/21/2024 7:30 AM CDT - 07/21/2024 9:30 AM CDT Surgery [facility] [place] [address] [place] [address] Ranulfo Morton MD [address] [facility] [address] [place] [address] LUMBAR 4-LUMBAR 5 MINIMALLY INVASIVE DECOMPRESSION Scheduled Procedures Name Priority Associated Diagnoses Date/Ti me DECOMPRESSION LUMBAR LAMINECTOMY Lumbar pain Spinal stenosis of lumbar region, unspecified whether neurogenic claudication present 07/21/2024 7:30 AM CDT Medical Devices Implanted Type Area Merchandise Flow Team Member Device Identifier Shelf Expiration Date Model / Serial / Lot [employer] Ringloc+ 50mm Limit Hole Shell Hip Acetabular - [id number] Implanted:Qty: 1 on 08/19/2017 by Ferdinand Ascencio MD at [facility] Right: Hip [employer] [id number] 12/24/2026 [id number] / / [id number] [employer] Ringloc 36mm High Wall Liner Hip +3mm 23 Acetabular E-Poly - [id number] Implanted:Qty: 1 on 08/19/2017 by Ferdinand Ascencio MD at [facility] Right: Hip [employer] [id number] 06/25/2022 [id number] / / [id number] [employer] 6.5mm 45mm Low Profile Screw Hip Acetabular Cancellous Dome Bone - [id number] Implanted:Qty: 1 on 08/19/2017 by Ferdinand Ascencio MD at [facility] Right: Hip [employer] 08/02/2026 [id number] / / [id number] [employer] Echo Bi-Metric 12mm 140mm Noncollar Full Proximal Profile Press - [id number] Implanted:Qty: 1 on 08/19/2017 by Ferdinand Ascencio MD at [facility] Right: Hip [employer] [id number] 10/30/2025 [id number] / / [id number] [employer] G7 Type 1 Sleeve Hip Standard Offset Taper Centering Titanium - [id number] Implanted:Qty: 1 on 08/19/2017 by Ferdinand Ascencio MD at [facility] Right: Hip [employer] [id number] 11/28/2026 650-1066 / / [id number] Head Femoral G7 Biolox Delta Biolox Option Od36 Mm Hip - [id number] Implanted:Qty: 1 on 08/19/2017 by Ferdinand Ascencio MD at [facility] Right: Hip [employer] [id number] 09/11/2026 [id number] / / [id number] Procedures Procedure Name Priority Date/Time Associated Diagnosis Comments BENITO MR OUTSIDE REFERENCE Routine 05/16/2024 12:00 AM CDT XR LUMBAR SPINE AP LAT FLEX EX Schedule Routine, Read Routine (OP Routine) 04/27/2024 11:10 AM RELOCATION COUNSELOR Spinal stenosis of lumbar region, unspecified whether neurogenic claudication present Lumbar pain XR SCOLIOSIS AP LAT Schedule Routine, Read Routine (OP Routine) 04/27/2024 11:10 AM RELOCATION COUNSELOR Spinal stenosis of lumbar region, unspecified whether neurogenic claudication present Lumbar pain DEXA AXIAL SKELETON BONE DENSITY 1 OR MORE SITES Schedule Routine, Read Routine (OP Routine) 01/10/2020 10:11 AM RELOCATION COUNSELOR Osteoporosis screening from Last 3 Months or Most Recently Relevant to Health Maintenance Results * BENITO MR Outside Reference (05/16/2024 12:00 AM CDT) Narrative YAKOV_NELSON_HERNANDO_MHE - 05/18/2024 1:20 PM CDT This order has been auto-finalized and does not contain a result. us Provider Transcribed Order IMG MRI PROCEDURES Fi nal Result RAD_NELSON_MHB_MHE * XR Spine Lumbar Ap Lat Flex Ext min 4 Views (04/27/2024 11:10 AM RELOCATION COUNSELOR) Anatomical Region Laterality Modality L-spine N/A Computed Radiogr aphy 04/28/2024 7:32 AM RELOCATION COUNSELOR Narrative 04/28/2024 7:35 AM RELOCATION COUNSELOR EXAM DESCRIPTION: XR SCOLIOSIS AP AND LATERAL; [...] by Edu Pearce M.D. T: Report ID: [id number] Reading Location: [id number] Procedure Note Edu Pearce MD - 04/28/2024 [...] by Edu Pearce M.D. T: Report ID: [id number] Reading Location: [id number] us Vinod DAVIDSON IMG XR PROCEDURES Final Re sult * XR Scoliosis 2 or 3 Views (04/27/2024 11:10 AM RELOCATION COUNSELOR) Anatomical Region Laterality Modality Spine N/A Computed Radiogr aphy 04/28/2024 7:32 AM RELOCATION COUNSELOR Narrative 04/28/2024 7:35 AM RELOCATION COUNSELOR EXAM DESCRIPTION: XR SCOLIOSIS AP AND LATERAL; [...] by Edu Pearce M.D. T: Report ID: [id number] Reading Location: [id number] Procedure Note Edu Pearce MD - 04/28/2024 [...] by Edu Pearce M.D. T: Report ID: [id number] Reading Location: [place] [address] Vinod DAVIDSON IMG XR PROCEDURES Final Re sult * Dexa Axial Skeleton Bone Density 1 or 2 Site (01/10/2020 10:11 AM RELOCATION COUNSELOR) Anatomical Region Laterality Modality Body N/A Radiographic Yaritza ging Narrative 01/10/2020 10:18 AM RELOCATION COUNSELOR Patient Name: Raffy Teran Date of : 1960 Date of scan: 01/10/2020 Bone mineral density was performed on a Holo[employer]ant[employer] Discovery Densitometer. Machine Cross-calibration and Precision studies [...] by the International Society of Clinical Densitometry. [id number] Chelo Colin MD IMG DXA PROCEDURES Final Resu lt from Last 3 Months or Most Recently Relevant to Health Maintenance Insurance [facility] MEDICARE ADVANTAGE AETNA SIG [id number] [facility] AETNA SIGNATURE [facility] MEDICARE ADVANTAGE Advance Directives For more information, please contact: [phone] * Full Code (Latest Code Status on File) Date Activated Date Inactivated Comments 08/24/2017 11:03 PM * Full Code Date Activated Date Inactivated Comments 08/24/2017 7:07 AM 08/24/2017 11:03 PM * Full Code Date Activated Date Inactivated Comments 08/19/2017 11:18 AM 08/21/2017 3:16 PM Care Teams Bacteriology Teacher Relationship Specialty Start Date End Date Edu Morelos MD [address] [place] [address] PCP - General Emergency Medicine 04/29/24 Guzman Kam DO [address] [place] [address] Air Traffic Coordinator Cardiology 06/16/24
--- OUTSIDE RECORDS SUMMARY | 2024-07-05 17:33 | XMS_ITS | Data Portability ---
Author Organization [facility], Main Office Address [address] [place] [address] Care Team Providers Care Legal Secretary Name Role Phone CORINNE BHATIA Primary Care Provider Assessment No assessment recorded. Plan of Treatment Reminders Order Date Submit Date Provider Last Modified By Organization Details Last Modified Time Details Appointments None record ed. Lab None record ed. Referral None record ed. Procedures None record ed. Surgeries None record ed. Imaging None record ed. Medication Orders None record ed. Patient TargetsNo targets recorded. Patient InstructionsNo instructions recorded. Reason for Referral None Reported. Problems Name Problem SNOMED Code Status Onset Date Resolution Date Notes Provider Name and Address Organization Details Recorded Time Disorder of shoulder 917351304 Active Not Available [facility] 13:56:34 Synovitis and tenosynovi tis 613536772 Active Not Available [facility] 13:56:34 Brachial neuritis 77496216 Active Not Available [facility] 3 13:56:34 Bilateral tinnitus 0574225661766 Active 2024 DUKE Ahn, [facility] 5 12:27:13 Bilateral tinnitus 1034351056644 Active 2024 Jose R Penn MD [address], [address] , [facility] 5 12:28:26 Problem Notes None recorded. Medical Equipment None Reported. Allergies Allergen ID Allergen Name Allergen Category Reaction Reaction Severity Criticality Documentation Date Start Date Code Code System Note Provider Name and Address Organization Details Recorded Time 28043 amoxicill in medicatio n Not available Not available Not available 06/16/2024 723 RxNorm DUKE Ahn, [facility] 12:16:49 41868 Product containin g penicilli n (product) medicatio n Not available Not available Not available 06/16/2024 54839 8001 AYAN Hand RN null, [place] [employer] [facility] 12:16:56 Medications Name Sig Start Date Stop Date Status Note LastModified by Organization Details LastModified Time gabapentin 600 mg tablet TAKE 1/2 TABLET (300 MG TOTAL) BY MOUTH 3 TIMES A DAY active Not Available Not Available No t Available azithromyci n 250 mg tablet TAKE 2 TABLETS BY MOUTH TODAY, THEN TAKE 1 TABLET DAILY FOR 4 DAYS DIRECTED 06/16 completed Not Available Not Available Not Available ibuprofen 800 mg tablet TAKE 1 TABLET BY MOUTH THREE TIMES A DAY NEEDED FOR PAIN FOR 7 DAYS 06/16 completed Not Available Not Available Not Available alprazolam 1 mg tablet TAKE 1 TABLET BY MOUTH 1 HOUR BEFORE PROCEDURE active Not Available Not Available No t Available alendronate 70 mg tablet 70 MG ORALLY WEEKLY active Not Available Not Available No t Available alprazolam 0.5 mg tablet TAKE 1 TABLET BY MOUTH EVERY DAY NEEDED 06/16 completed Not Available Not Available Not Available methocarbam ol 750 mg tablet TAKE 2 TABLETS BY MOUTH 3 TIMES A DAY active Not Available Not Available No t Available magnesium 500 mg (as magnesium oxide) tablet 500 MG ORALLY ONE HOUR BEFORE BEDTIME, BUY OTC 06/16 completed Not Available Not Available Not Available levofloxaci n 500 mg tablet TAKE 1 TABLET BY MOUTH EVERY DAY FOR 5 DAYS 06/16 completed Not Available Not Available Not Available sertraline 50 mg tablet TAKE 1 TABLET BY MOUTH EVERY DAY active Not Available Not Available No t Available magnesium oxide 500 mg capsule TAKE 1 CAPSULE BY MOUTH 1 HOUR BEFORE BEDTIME active Not Available Not Available No t Available cholecalcif cecelia (vitamin D3) 50 mcg (2,000 unit) capsule TAKE TWO SOFTGELS (100 MCG) ORALLY DAILY 06/16 completed Not Available Not Available Not Available cholecalcif cecelia (vitamin D3) 50 mcg (2,000 unit) tablet TAKE 2 TABLETS BY MOUTH DAILY active Not Available Not Available No t Available Vitals Date Recorded Body weight Body mass index (BMI) Body height Body temperature Provider Name and Address Organization Details Last Updated DateTime 06/16/2024 08132.74 g 22.6 kg/m2 157.48 cm 97.6 [degF] Arleth Hand RN [facility] [employer] [facility] 06/16/2024 12:18:53 Social History Question Answer Notes LastModified by Organizat ion Details LastModified Time Tobacco Smoking Status Former Smoker QUIT AT AGE 38 Arleth Hand RN null, [facility] [employer] 06/16/2024 12:17:40 What Is Your Level Of Alcohol Consumption? None [email or web address] Information not available 06/16/2024 Sex: Unknown Functional Status None recorded. Mental Status None recorded. Family History Relationship Description Onset Age of this Age Resolved Age Notes LastModified by Organization Details LastModified Time Father No current problems or disability [email or web address] Not available 06/16 12:10:50 Mother No current problems or disability [email or web address] Not available 06/16 12:10:50 Notes:NO ENT Medical History Condition Response HIGH CHOLESTEROL / HYPERLIPIDEMIA Y Gynecological HistoryNo gynecological history recorded. Obstetrics History GPAL:G 0 P 0 0 0 0 Past Encounters Encounter ID Performer Location Encounter Start Date Encounter Closed Date Diagnosis/Indication Diagnosis SNOMED-CT Code Diagnosis ICD10 Code Diagnosis Note [id number] Jose R Penn MD [facility] [place] [address] [place] [address] 06/16/2024 12:00:09 06/21/2024 10:36:40 Bilateral tinnitus 2963650667 102 H93.13 Health Concerns Section Related Observation LastModified by Organization Detai ls LastModified Time None Recorded Concern Status LastModified by Organization Details LastModified Time None Recorded Advance Directives Directive None Recorded Payers Encounter Date Sequence Insurance Name Policy Number Policy Yung Covered Member ID Yung Member ID Guarantor Name 06/16/2024 1 [facility] [employer] [id number] Butch Ray [id number] Amita Ray 06/16/2024 1 [facility] (MEDICARE REPLACEMENT/A DVANTAGE - PPO) [id number] Amita aRy [id number] Amita Ray Notes Date Note Type Note Provider Name and Address Organization Details Recorded Time 06/16/2024 text/html this patient reports bilateral tinnitus for 1 year. It is intermittent in loudness. She thinks it might be stress related. She has not had an audiogram. Jose R Penn MD [address] [place] [address], [address] [address], [place], [address], [facility] 06/16/2024 12:29:16 OBGyn Episode No OBEpisode recorded.
--- OUTSIDE RECORDS SUMMARY | 2024-07-05 17:33 | XMS_ITS | Clinical Summary ---
Author Organization [facility] Address [address] [place] [address] Care Team Providers Care Tray Server Name Role Phone Edu Morelos MD Primary Care Provide r Guzman Kam Mary DO Unavailable [phone] Allergies Active Allergy Reactions Criticality Noted Date [...] 3 (three) times a day 45 tablet 04/27/19 025 Discontinued Active Problems Problem Noted Date Diagnosed Date Lumbar pain 06/10/2024 Spinal stenosis of lumbar region 06/10/2024 Aftercare following right hip joint replacement surgery 07/15/2017 Prophylactic antibiotic 07/15/2017 Encounters Date Type Department Care Team Description 07/05/2024 Orders Only [facility] PreAdmission Testing [address] [place] [address] Michelle Veloz RN 06/10/[address] [facility] [address] [place] [address] 3, [address] [place] [address] Claudia Loyd RN 05/18/2024 2:00 PM CDT Office Visit [facility] [address] [place] [address] [address], [address] [place] [address] Ranulfo Morton MD Neck pain (Primary Dx) 05/17/2024 Telephone [facility] Scheduling [address] [place] [address] Madiha Guillermo 05/16/2024 - 05/16/2024 11:59 PM CDT Hospital Encounter [facility] [employer] [address] [place] [address] Discharge Disposition: Discharge to home or self care 04/27/2024 10:43 AM RANGE MASTER - 04/27/2024 11:59 PM RANGE MASTER Hospital Encounter [facility] Diag Imaging [address] [place] [address] Spinal stenosis of lumbar region, unspecified whether neurogenic claudication present; Lumbar pain Discharge Disposition: Discharge to home or self care 04/27/2024 10:30 AM RANGE MASTER Office Visit [facility] [address], [address] [place] [address] Vinod Wellington PA Spinal stenosis [...] on file Legal Sex Female 1:24 AM RANGE MASTER Gender Identity Not on file Sexual Orientation [...] Description 07/21/2024 7:30 AM CDT Hospital Encounter [facility] [place] [address] [place] [address] Ranulfo Morton MD [address] [place] [address] 07/21/2024 7:30 AM CDT Anesthesia Event [facility] [place] [address] [place] [address] Erika Phipps, TIMBER FALLER [address] [place] [address] 07/21/2024 7:30 AM CDT - 07/21/2024 9:30 AM CDT Surgery [facility] [place] [address] [place] [address] Ranulfo Morton MD [address] [place] [address] LUMBAR 4-LUMBAR 5 MINIMALLY INVASIVE DECOMPRESSION Scheduled Procedures Name Priority Associated Diagnoses Date/Ti me DECOMPRESSION LUMBAR LAMINECTOMY Lumbar pain Spinal stenosis of lumbar region, unspecified whether neurogenic claudication present 07/21/2024 7:30 AM CDT Health Maintenance Due Date Last Done Comments Colon Cancer Screening-Colonoscopy 1960 Depression Screening 1960 Fall Risk Assessment 1960 Hepatitis C Screening 1960 DTaP/Tdap/Td Vaccine (1 - Tdap) 1969 Hepatitis B Screening 01/13/1976 Pneumococcal vaccine 65+ (1 of 1 - PCV) 01/13/2008 Zoster Vaccine (1 of 2) 01/13/2008 Osteoporosis Screening-Bone Density Scan 01/09/2022 01/10/2020, 10/05/2018 Well Visit 65+ 2023 Breast Cancer Screening-Mammogram 06/03/2024 06/04/2023, 10/23/2021, 09/06/2020, Additional history exists Influenza Vaccine (Season Ended) 2024 12/16/19, 12/28/2018 Medical Devices Implanted Type Area Keyboarding Clerk Device Identifier Shelf Expiration Date Model / Serial / Lot [employer] Ringloc+ 50mm Limit Hole Shell Hip Acetabular - [id number] Implanted:Qty: 1 on 08/19/2017 by Ferdinand Ascencio MD at [facility] Right: Hip [employer] [id number] 12/24/2026 [id number] / / [id number] [employer] Ringloc 36mm High Wall Liner Hip +3mm 23 Acetabular E-Poly - [id number] Implanted:Qty: 1 on 08/19/2017 by Ferdinand Ascencio MD at [facility] Right: Hip [employer] [id number] 06/25/2022 [id number] / / [id number] [employer] 6.5mm 45mm Low Profile Screw Hip Acetabular Cancellous Dome Bone - [id number] Implanted:Qty: 1 on 08/19/2017 by Ferdinand Ascencio MD at [facility] Right: Hip [employer] 08/02/2026 [id number] / / [id number] [employer] Echo Bi-Metric 12mm 140mm Noncollar Full Proximal Profile Press - [id number] Implanted:Qty: 1 on 08/19/2017 by Ferdinand Ascencio MD at [facility] Right: Hip [employer] [id number] 10/30/2025 [id number] / / [id number] [employer] G7 Type 1 Sleeve Hip Standard Offset Taper Centering Titanium - [id number] Implanted:Qty: 1 on 08/19/2017 by Ferdinand Ascencio MD at [facility] Right: Hip [employer] [id number] 11/28/2026 650-2976 / / [id number] Head Femoral G7 Biolox Delta Biolox Option Od36 Mm Hip - [id number] Implanted:Qty: 1 on 08/19/2017 by Ferdinand Ascencio MD at [facility] Right: Hip [employer] [id number] 09/11/2026 650-2537 / / [id number] Procedures Procedure Name Priority Date/Time Associated Diagnosis Comments MSK MR OUTSIDE REFERENCE Routine 05/16/2024 12:00 AM CDT XR LUMBAR SPINE AP LAT FLEX EX Schedule Routine, Read Routine (OP Routine) 04/27/2024 11:10 AM RANGE MASTER Spinal stenosis of lumbar region, unspecified whether neurogenic claudication present Lumbar pain XR SCOLIOSIS AP LAT Schedule Routine, Read Routine (OP Routine) 04/27/2024 11:10 AM RANGE MASTER Spinal stenosis of lumbar region, unspecified whether neurogenic claudication present Lumbar pain DEXA AXIAL SKELETON BONE DENSITY 1 OR MORE SITES Schedule Routine, Read Routine (OP Routine) 01/10/2020 10:11 AM RANGE MASTER Osteoporosis screening from Last 3 Months or Most Recently Relevant to Health Maintenance Results * MSK MR Outside Reference (05/16/2024 12:00 AM CDT) Narrative YAKOV_NELSON_MHB_MHE - 05/18/2024 1:20 PM CDT This order has been auto-finalized and does not contain a result. us Provider Transcribed Order IMG MRI PROCEDURES Fi nal Result RAD_NELSON_MHB_MHE * XR Spine Lumbar Ap Lat Flex Ext min 4 Views (04/27/2024 11:10 AM RANGE MASTER) Anatomical Region Laterality Modality L-spine N/A Computed Radiogr aphy 04/28/2024 7:32 AM RANGE MASTER Narrative 04/28/2024 7:35 AM RANGE MASTER EXAM DESCRIPTION: XR SCOLIOSIS AP AND LATERAL; [...] by Edu Pearce M.D. T: Report ID: [id number] Reading Location: [place] [address] Procedure Note Edu Pearce MD - 04/28/2024 [...] by Edu Pearce M.D. T: Report ID: [id number] Reading Location: [id number] us Vinod DAVIDSON IMG XR PROCEDURES Final Re sult * XR Scoliosis 2 or 3 Views (04/27/2024 11:10 AM RANGE MASTER) Anatomical Region Laterality Modality Spine N/A Computed Radiogr aphy 04/28/2024 7:32 AM RANGE MASTER Narrative 04/28/2024 7:35 AM RANGE MASTER EXAM DESCRIPTION: XR SCOLIOSIS AP AND LATERAL; [...] by Edu Pearce M.D. T: Report ID: [id number] Reading Location: [id number] Procedure Note Edu Pearce MD - 04/28/2024 [...] by Edu Pearce M.D. T: Report ID: [id number] Reading Location: [place] [address] us Vinod DAVIDSON IMG XR PROCEDURES Final Re sult * Dexa Axial Skeleton Bone Density 1 or 2 Site (01/10/2020 10:11 AM RANGE MASTER) Anatomical Region Laterality Modality Body N/A Radiographic Yaritza ging Narrative 01/10/2020 10:18 AM RANGE MASTER Patient Name: Raffy Teran Date of : 1960 Date of scan: 01/10/2020 Bone mineral density was performed on a [employer] Discovery Densitometer. Machine Cross-calibration and Precision studies [...] by the International Society of Clinical Densitometry. [id number] Chelo Colin MD IMG DXA PROCEDURES Final Resu lt from Last 3 Months or Most Recently Relevant to Health Maintenance Insurance [facility] MEDICARE ADVANTAGE [facility] MEDICARE Address: [facility] [address] [place] [address] AETNA SIG [id number] [facility] AETNA SIGNATURE UHC MEDICARE ADVANTAGE [facility]ICAL [facility] MEDICARE Address: [address] [address] Advance Directives For more information, please contact: [phone] * Full Code (Latest Code Status on File) Date Activated Date Inactivated Comments 08/24/2017 11:03 PM * Full Code Date Activated Date Inactivated Comments 08/24/2017 7:07 AM 08/24/2017 11:03 PM * Full Code Date Activated Date Inactivated Comments 08/19/2017 11:18 AM 08/21/2017 3:16 PM Care Teams Tray Server Relationship Specialty Start Date End Date Edu Morelos MD [address] [place] [address] PCP - General Emergency Medicine 04/29/24 Guzman Kam DO [address] [place] [address] Hosiery Bagger Cardiology 06/16/24
== END 2024-07-05 16:20 | disposition home or self-care (01) ==
PROVIDERS: PCP Emergency Medicine; Visit Provider Emergency Medicine
DX: Z12.31 Encounter for screening mammogram for malignant neoplasm of breast (principal)
CPT/HCPCS: 77063; 77067

== ENCOUNTER 2024-07-08 12:38 | Outpatient (CLI) | payer MEDICARE, SELFPAY ==
--- NOTE | 2024-07-08 12:41 | ECHO_ITS ---
Patient Info Name: Amita Ray Age: 64 years : 1960 Gender: Female Ht: 62 in Wt: 120 lbs BSA: 1.55 m2 HR: 65 bpm BP: 123 / 77 mmHg Technical Quality: Good Exam Date: 07/08/2024 12:46 PM Exam Location: Echo Lab Patient Status: Outpatient Admit Date: 07/08/2024 Staff Ordering Physician: Guzman Kam DO Wildlife Removal Specialist: Malia Arellano RDCS Attending Provider: Guzman Kam DO Referring Physician: Eddy WILLETT; Exam Type: CA echo doppler color flow Study Info Indications R06.09 - Other forms of dyspnea Complete two-dimensional, color flow and Doppler transthoracic echocardiogram is performed. Summary 1. Complete two-dimensional, color flow and Doppler transthoracic echocardiogram is performed. 2. Left ventricular chamber dimension is normal. 3. Left ventricular systolic function is normal, estimated at 60-65%. 4. The left ventricular diastolic function is grade I diastolic dysfunction. 5. E/e' 10 is mildly elevated. 6. Left atrial chamber dimension is mildly enlarged. 7. There is mild mitral valve regurgitation. 8. There is mild tricuspid valve regurgitation. 9. No pulmonary hypertension, estimated pulmonary arterial systolic pressure is 27 mmHg. Left Ventricle E/e' 10 is mildly elevated. Left ventricular chamber dimension is normal. Left ventricular systolic function is normal, estimated at 60-65%. The left ventricular diastolic function is grade I diastolic dysfunction. Right Ventricle Right ventricular systolic function is normal and with normal TAPSE 2.0 cm. Right ventricular chamber dimension is normal. Left Atria Left atrial chamber dimension is mildly enlarged. Right Atria Right atrial chamber dimension is normal. Aortic Valve The aortic valve is trileaflet. There is no aortic valve stenosis. There is no aortic valve regurgitation. Pulmonic Valve There is no pulmonic regurgitation. Mitral Valve There is no mitral valve stenosis. There is mild mitral valve regurgitation. Tricuspid Valve There is mild tricuspid valve regurgitation. No pulmonary hypertension, estimated pulmonary arterial systolic pressure is 27 mmHg. Pericardium/Pleural There is no pericardial effusion. Inferior Vena Cava Normal inferior vena cava with >50% collapse upon inspiration consistent with normal right atrial pressure, 5 mmHg. Aorta The aortic root size at the sinus of Valsalva is normal. Left Ventricular Outflow Tract Name Value Normal LVOT 2D LVOT Diameter 1.8 cm LVOT Doppler LVOT Peak Gradient 2 mmHg LVOT Mean Gradient 2 mmHg LVOT VTI 21 cm LVOT VTI/AV VTI Ratio 0.6 LVOT Stroke Volume 53 ml LVOT CO 9.7 l/min LVOT CI 6.2 l/min/m2 Pulmonic Valve Name Value Normal PV Doppler PV Peak Gradient 3 mmHg Mitral Valve Name Value Normal MV Doppler MV Decel [place] 568 cm/s2 MV PHT 47 ms MV Area (PHT) 4.7 cm2 4.0-5.0 MV Diastolic Function MV E Peak Velocity 92 cm/s MV A Peak Velocity 104 cm/s MV E/A 0.9 MV Decel Time 162 ms MV Annular TDI MV E/e' (Septal) 15.5 <=8.0 MV E/e' (Lateral) 8.0 <=8.0 MV E/e' (Average) 11.7 Tricuspid Valve Name Value Normal TV Regurgitation Doppler TR Peak Velocity 233 cm/s TR Peak Gradient 22 mmHg Estimated PAP/RSVP RA Pressure 5 mmHg <=5 PA Systolic Pressure 27 mmHg <36 RV Systolic Pressure 27 mmHg <36 Aorta Name Value Normal Ascending Aorta Ao Root Diameter (MM) 2.7 cm Ao Root Diam Index (MM) 1.8 cm/m2 Aortic Valve Name Value Normal AV Doppler AV Peak Velocity 146 cm/s AV Peak Gradient 8 mmHg AV Mean Gradient 5 mmHg AV VTI 32 cm AV Area (Cont Eq VTI) 1.6 cm2 >=3.0 AV Area (Cont Eq Gideon) 1.3 cm2 AV Regurgitation 2D LVOT Area 2.6 cm2 Ventricles Name Value Normal LV Dimensions 2D/MM IVS Diastolic Thickness (2D) 0.6 cm 0.6-1.0 LVID Diastole (2D) 4.7 cm 3.8-5.2 LVIW Diastolic Thickness (2D) 0.7 cm 0.6-0.9 LVID Systole (2D) 3.2 cm 2.2-3.5 LVOT Diameter 1.8 cm LV Mass (2D Cubed) 98.59 g 67.00-162.00 LV Mass Index (2D Cubed) 64 g/m2 43-95 Relative Wall Thickness (2D) 0.30 LV Fractional Shortening/Ejection Fraction 2D/MM LV Fractional Shortening (2D) 32 % 27-45 LV EF (2D Teicholz) 60 % 54-74 LV Diastolic Volume (4C MOD) 101 ml LV EF (4C MOD) 55 % LV Diastolic Volume (2C MOD) 76 ml LV EF (2C MOD) 59 % LV Diastolic Volume (BP MOD) 89 ml 46-106 LV Diastolic Volume Index (BP MOD) 57 ml/m2 29-61 LV Systolic Volume (BP MOD) 39 ml 14-42 LV Systolic Volume Index (BP MOD) 25 ml/m2 8-24 LV EF (BP MOD) 56 % 54-74 LV Diastolic Length (4C) 7.2 cm LV Systolic Length (4C) 5.7 cm LV Stroke Volume (4C MOD) 56 ml RV Dimensions 2D/MM RVID Diastole (2D) 3.1 cm 2.5-3.5 Atria Name Value Normal LA Dimensions LA Dimension (MM) 0.0 cm 2.7-3.8 LA Volume (4C A-L) 56 ml LA Volume (BP A-L) 55 ml RA Dimensions RA Area (4C) 9.8 cm2 <=18.0 Report Signatures
--- OUTSIDE RECORDS SUMMARY | 2024-07-09 13:17 | XMS_ITS | Encounter Summary ---
Author Organization [facility] Healthcare Address [address] [place] [address] Care Team Providers Care Automobile Parker Name Role Phone Edu Morelos MD Primary Care Provide r Guzman Kam DO Unavailable [phone] Encounter Details Date Type Department Care Team (Late st Contact Info) Description 07/05/2024 Orders Only [facility] PreAdmission Testing [address] [place] [address] Michelle Veloz, RN Social History Tobacco Use Types Packs/Day Years Used Date Smoking Tobacco: Former Cigarettes Smokeless Tobacco: Never Alcohol Use Standard Drinks/Week Comments Yes 0 (1 standard drink = 0.6 oz pur e alcohol) social AUDIT-C Answer Date Recorded Q1: How often do you have a drink containing alc ohol? Monthly or less 07/07/2024 Q2: How many drinks containi ng alcohol do you have on a typical day when you are drinking? 1 or 2 07/07/2024 Q3: How often do you have si x or more drinks on one occasion? Never 07/07/2024 Personal Safety Answer Date Recorded Have you ever been in or are you currently in a harmful physical or emotional relationship or is someone making you feel afraid or unsafe? 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 Monthly or less 07/07/2024 8:27 AM CDT Michelle Veloz RN Q2: How many drinks containing alcohol do you have on a typical day when you are drinking? 1 or 2 07/07/2024 8:27 AM CDT Elle Veloz RN Q3: How often do you have six or more drinks on one occasion? Never 07/07/2024 8:27 AM CDT Michelle Veloz RN documented as of this encounter Plan of Treatment Upcoming Encounters Date Type Department Care Team (Latest Contact Info) Description 07/21/2024 7:30 AM CDT Hospital Encounter [facility] [place] [address] [place] [address] Ranulfo Morton MD [address] [place] [address] 07/21/2024 7:30 AM CDT Anesthesia Event [facility] [place] [address] [place] [address] Erika Phipps PERSONAL SERVICE REPRESENTATIVE [address] [place] [address] 07/21/2024 7:30 AM CDT - 07/21/2024 9:30 AM CDT Surgery [facility] [place] [address] [place] [address] Ranulfo Morton MD [address] [place] [address] LUMBAR 4-LUMBAR 5 MINIMALLY INVASIVE DECOMPRESSION Scheduled Procedures Name Priority Associated Diagnoses Date/Ti me DECOMPRESSION LUMBAR LAMINECTOMY Lumbar pain Spinal stenosis of lumbar region, unspecified whether neurogenic claudication present 07/21/2024 7:30 AM CDT documented as of this encounter Visit Diagnoses Not on filedocumented in this encounter Care Teams Automobile Parker Relationship Specialty Start Date End Date Edu Morelos MD [address] [place], [place] [id number] PCP - General Emergency Medicine 04/29/24 Guzman Kam DO [address] [place], [place] [id number] [facility] 06/16/24 documented as of this encounter
--- OUTSIDE RECORDS SUMMARY | 2024-07-09 13:17 | XMS_ITS | Data Portability ---
Author Organization [facility] Address [address] [place] [address] [address] Assessment Encounter Date Assessment Date Assessment LastModified [...] analysis , blood or tissue 2021 022 [employer], [address], [place], [address], 21:38:45 Referral None recorded . Procedures None recorded . Surgeries None recorded . Imaging MAMMO, screenin g, digital, bilatera l 2023 024 [facility], [address], [place], [address], 4 05:00:53 US, pelvis 2021 022 [email or web address] [facility], [address], [address], [place], [address], 18:10:40 US, transvag inal 2021 022 [email or web address] [facility], [address], [place], [address], 18:10:40 MAMMO, screenin g, bilatera l 2021 [email or web address] [facility], [address], [place], [address], 16:20:34 US, pelvis, complete 2021 022 [email or web address] [facility], [address], [place], [address], 19:05:29 Medication Orders None recorded . Patient [...] Techn ical servi fatmata provi ded by [facility] Patho logis [employer], d/b/a [facility], [address] [place] [address] Antione Hernandez MD, Labor [employer] [facility]. Case revie wed and diagn osis rende red at [facility] Path[facility] logis [employer], d/b/a [facility], [address], [place] [address] Ramu Isaac MD, Labor [employer] tor. CONFI DENTI AL Not Available [facility]) [address], [place], [address], 07/15/2019 16:33:51 08/02/19 22 08/01/2021 INVIT AE COMMO N HERED ITARY CANCE RS PANEL abnormal status abnormal Not Available [employer] [address], [place], [address], 08/16/2021 21:38:45 07/14/19 20 07/14/2019 MAMMO , scree cecile, bilat eral No observ ation record ed. ajith [facility] (Imaging) [address], [place], [address], 07/25/2019 12:00:51 07/25/19 20 07/14/2019 MAMMO , scree cecile, bilat eral No observ ation record ed. [email or web address] Not Available 2019 12:00:52 09/07/19 21 MAMMO , scree cecile, bilat eral No observ ation record ed. [email or web address] Not Available 2020 15:34:07 08/16/19 22 08/15/2021 US, pelvi s No observ ation record ed. [email or web address] [facility] [address], [place], [address], 08/15/2021 13:01:47 08/16/19 22 08/15/2021 US, trans vagin al No observ ation record ed. [email or web address] [facility] [address], [place], [address], 08/15/2021 13:01:56 08/16/19 22 08/15/2021 US, pelvi s No observ ation record ed. baron Carpio [address], [place], [address], 08/19/2021 09:56:42 10/24/19 22 10/23/2021 MAMMO , scree cecile, bilat eral No observ ation record ed. [address], [place], [address], 10/30/2021 17:34:45 06/04/19 24 06/04/2023 MAMMO , scree cecile, bilat eral No observ ation record ed. [address], [place], [address], 06/05/2023 12:02:46 Result Notes None recorded. Procedures Surgical History Date Name Laterality Status Provider Name and Address Organization Details Recorded Time 020 Skin Tag Removal completed KATHERINE Chun- [address], [place], [address], [place] [facility] 07/18/2019 10:35:38 019 Date of Last Pap Smear completed Charley Adamson [facility] 08/01/2021 11:57:50 012 Colonoscopy completed [facility] 07/21/2023 09:34:51 009 cholecystectomy completed [facility] 07/21/2023 09:34:45 000 Tubal Ligation completed [facility] 07/21/2023 09:35:11 000 Total Hysterectomy completed [facility] 07/21/2023 09:34:59 Imaging Results Imaging Date Name Status LastModified by Organization Details LastModified Time 07/14/2019 MAMMO, screening, bilateral completed [address] (Imaging) [address] [facility] [address] [place] [address], [address], 07/25/2019 12:00:51 07/14/2019 [facility]MO, screening, [facility] available 07/25/2019 12:00:52 09/06/2020 MAMMO, screening, bilateral completed [email or web address] Information not available 09/07/2020 15:34:07 08/15/2021 US, pelvis completed [email or web address] Jayson [address], [place], [address], 08/15/2021 13:01:47 08/15/2021 US, transvaginal completed [email or web address] Nelia hemphill [address], [place], [address], 08/15/2021 13:01:56 08/15/2021 US, pelvis completed baron Carpio [address], [place], [address], 08/19/2021 09:56:42 10/23/2021 MAMMO, screening, bilateral completed [place] [address] [facility] [address] [place] [address], [address], 10/30/2021 17:34:45 06/04/2023 MAMMO, screening, bilateral completed [address], [place], [address], 06/05/2023 12:02:46 Procedure Notes None recorded. Medical Equipment None Reported. Allergies Allergen ID Allergen Name Allergen Category Reaction Reaction Severity Criticality Documentation Date Start Date Code Code System Note Provider Name and Address Organization Details Recorded Time 430 tramadol medicatio n Not available Not available Not available 07/07/2019 38731 RxNorm Isabela Lacey [place], [place] - [facility] 0 15:26:50 Medications Name Sig [...] Prescrib ed Elsewher e: Yes Loca tion: [facility] M odify By: shasha swanson DateTime : [...] Elsewher e: Yes Loca tion: Nelia hemphill [facility] odify By: bruna swanson DateTime : 06/18/19 12 02:30:00 PM Not Available Not Available Not Available Cipro 500 mg tablet take 1 tablet by oral route every 12 hours 04/20 completed Prescrib ed Elsewher e: No Locat ion: Nelia hemphill [facility] odify By: bruna [email or web address] DateTime : 01/24/20 [...] Elsewher e: No Locat ion: Nelia hemphill [facility] odify By: bruna swanson DateTime : 06/18/19 [...] Elsewher e: Yes Loca tion: Nelia hemphill [facility] odify By: bruna swanson DateTime : 02/05/20 [...] Available No t Available Opti[employer]amb er Barbi [facility] spacer DIRECTED 07/20 completed Not Available Not Available Not Available Multi Vitamin 07/20 completed Not Available Not Available Not Available Vitals Date Recorded Body height Body mass index (BMI) Body weight Systolic blood pressure Diastolic blood pressure Provider Name and Address Organization Details Last Updated DateTime 08/01/2021 157.48 cm 24 kg/m2 62852.6 g 125 mm[Hg] 73 mm[Hg] [facility] 2 11:56:18 Date Recorded Body height Body mass index (BMI) Body weight Systolic blood pressure Diastolic blood pressure Provider Name and Address Organization Details Last Updated DateTime 08/19/2021 157.48 cm 23.2 kg/m2 82477.23 g 134 mm[Hg] 78 mm[Hg] [facility] 2 09:34:10 Date Recorded Body height Body mass index (BMI) Body weight Systolic blood pressure Diastolic blood pressure Provider Name and Address Organization Details Last Updated DateTime 07/21/2023 157.48 cm 23.6 kg/m2 51547.42 g 119 mm[Hg] 79 mm[Hg] Zaria Preston [facility] 4 09:29:55 Date Recorded Body height Body mass index (BMI) Body weight Systolic blood pressure Diastolic blood pressure Provider Name and Address Organization Details Last Updated DateTime 07/12/2019 1920.24 cm 0.2 kg/m2 60947.79 g 135 mm[Hg] 57 mm[Hg] Isabela Lacey [facility] 0 10:39:48 Social History Question Answer [...] ICD10 Code Diagnosis Note 2698 Jessica Nuno [facility] [address] [address] 07/07/2019 15:36:54 07/07/2019 16:21:49 Routine gynecologic examination done [id number] 9101 Z01.419 Take Calcium with Vitamin D 12-1500mg daily. Do monthly self breast exams. It is advised to get annual flu shot in the fall and she could obtain at [facility] or [facility] care clinic. If you haven't received [...] schedule appt for this prn. 3067 [facility] [address] [address] 07/12/2019 10:27:54 07/12/2019 10:59:59 Anal skin tag [id number] K64.4 Patient presented today for removal of [...] counseling and review of plan of care. [id number] Ofelia Singh KO [facility] [address] [address] 08/01/2021 11:41:46 08/01/2021 13:15:43 Family history of breast cancer 789024733 Z80.3 Screening for malignant neoplasm of breast 621871306 Z12.39 Pain in pelvis 58257365 R10.2 Gynecologi c examination 36388477 Z01.419 Take Calcium with Vitamin D 12-1500mg daily. Do monthly self breast exams. It is advised to get annual flu shot in the fall and she could obtain at [facility] or [facility] care clinic. If you haven't received [...] with the patient was over 35 minutes 762165 Samir Morelos MD [facility] [address],[place] [address] 08/15/2021 12:28:36 08/15/2021 14:15:09 Pain in pelvis 30648633 R10.2 968963 KATHERINE Andres [facility] [address],[place] [address] 08/19/2021 09:26:14 08/19/2021 10:40:26 Pain in pelvis 96361365 R10.2 Here today to discuss u/s results. [...] counseling and review of plan of care. 188113 KATHERINE Andres [facility] [address] [address] 07/21/2023 09:25:28 07/21/2023 09:59:55 Gynecologic examination 83042342 Z01.419 WWEpaps d/c'd unless otherwise indicatedd eclined STI screenmamm ogram due next 5col onoscopy UTD/PCP ordersdexa UTD/PCP managesrou paige labs UTD/PCPRTC in 1 yr or sooner if needed Take Calcium with Vitamin D daily. Do monthly self breast exams. It is advised to get annual flu shot in the fall and she could obtain at [facility] or [facility] care clinic. If you haven't received [...] email Screening for malignant neoplasm of breast [id number] Z12.39 Health Concerns Section Related Observation LastModified by Organization Detai ls LastModified Time None Recorded Concern Status LastModified by Organization Details LastModified Time None Recorded Advance Directives Directive None Recorded Payers Encounter Date Sequence Insurance Name Policy Number Policy Yung Covered Member ID Yung Member ID Guarantor Name 07/12/2019 1 [employer] [address] ([facility] Butch Ray [id number] Amita Ray 08/01/2021 1 [employer] [address] ([facility]) Butch Ray [id number] Amita Ray 08/15/2021 1 [employer] [address] ([facility]) Butch Ray [id number] Amita Ray 08/19/2021 1 [employer] [address] ([facility]) Butch Ray [id number] Amita Ray 07/21/2023 1 [facility] [employer] [place] [id number] Butch Ray [id number] Amita Ray Notes Date Note Type Note Provider Name and Address Organization Details Recorded Time 07/12/2019 text/html Patient presents today for removal of katey-anal skin tag which has been bothering her when she wipes. KATHERINE Chun- [address], [place], [address], [facility] 07/18/2019 10:38:54 08/01/2021 text/html Annual Acid Pump Operator Post-MenopausalReport ed bypatient.Menopausal Symptoms:no menopausal symptoms; normal [...] use; needs to schedule mammogram [address] [place], [address], [facility] 08/01/2021 12:40:13 08/19/2021 text/html Here to discuss u/s results [address], [place], [address], [facility] 08/19/2021 09:56:09 07/21/2023 text/html Annual Acid Pump Operator Post-MenopausalReport ed bypatient.Menopausal Symptoms:no menopausal symptoms; normal [...] fibroids/AUB, non-cancerous reasonmammogram UTD olonoscopy UTD/PCP ordersdexa 2022, PCP manages (was seeing bone specialist [place] but states now PCP is managing. No longer on alendronate, takes calcium/vitamin D per pt) KATHERINE Andres [address], [place], [address], [place] [facility] 07/21/2023 09:58:46 OBGyn Episode Ob Episode Information Episode Created Date Number of Fetuses Patient Bloodtype Patient rh Status Prepregnancy Weight lbs Domestic Partner Domestic Partner Phone Father Name Test Case Developer Status 07/07/19 20 1 CLOSED Fetus Data [...] Domestic Partner Domestic Partner Phone Father Name Test Case Developer Status 07/07/19 20 1 CLOSED Fetus Data [...] Domestic Partner Domestic Partner Phone Father Name Test Case Developer Status 07/07/19 20 1 CLOSED Fetus Data [...]
--- OUTSIDE RECORDS SUMMARY | 2024-07-09 13:17 | XMS_ITS | Encounter Summary ---
Author Organization [facility] Healthcare Address [address] [place] [address] Care Team Providers Care Flight Controls Engineer Name Role Phone Charlie Alfredo MD Primary Care Provide r Edu Morelos MD Primary Care Provide r Guzman Kam Mary DO Unavailable [phone] Encounter Details Date Type Department Care Team (Late st Contact Info) Description 08/21/2017 Documentation [facility] Case Management [id number] [place] [address] Salome Mckinnon RN Social History Tobacco Use Types Packs/Day Years Used Date Smoking Tobacco: Former Comments No Sex and Gender Information Value Date Recorded Sex Assigned at Not on file 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 Gender Identity Not on file Sexual Orientation Not on file documented as of this encounter Plan of Treatment Upcoming Encounters Date Type Department Care Team (Latest Contact Info) Description 07/21/2024 7:30 AM CDT Hospital Encounter [facility] [place] [address] [place] [address] Ranulfo Morton MD [facility] S [facility] [address] [place] [address] 07/21/2024 7:30 AM CDT Anesthesia Event [facility] [place] [address] [place] [address] Erika Phipps STRETCHER DRIER OPERATOR [address] [place] [address] 07/21/2024 7:30 AM CDT - 07/21/2024 9:30 AM CDT Surgery [facility] OR [address] [place] [address] Ranulfo Morton MD [address] [facility] [address] [place] [address] LUMBAR 4-LUMBAR 5 MINIMALLY INVASIVE DECOMPRESSION Scheduled Procedures Name Priority Associated Diagnoses Date/Ti me DECOMPRESSION LUMBAR LAMINECTOMY Lumbar pain Spinal stenosis of lumbar region, unspecified whether neurogenic claudication present 07/21/2024 7:30 AM CDT documented as of this encounter Visit Diagnoses Not on filedocumented in this encounter Care Teams Flight Controls Engineer Relationship Specialty Start Date End Date Charlie Alfredo MD PCP - General 06/30/17 04/28/24 Edu Morelos MD [address] [place] [address] PCP - General Emergency Medicine 04/29/24 Guzman Kam DO [address] [place] [address] Photograph Inspector Cardiology 06/16/24 documented as of this encounter
--- OUTSIDE RECORDS SUMMARY | 2024-07-09 13:17 | XMS_ITS | Clinical Summary ---
Author Organization [facility] Address [address] [place] [address] Care Team Providers Care Certified Welding Inspector Name Role Phone Unavailable Primary Care Provider Unavailabl e Source Comments [facility],non-owned Affiliates and Associated Physician Practices is amultiple site organization consisting of ambulatory clinics and hospital sitesin [place], [place], [place] and [place]. This disclosure is being madepursuant to the Care Everywhere program and may not contain all information available regarding this patient. 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
--- OUTSIDE RECORDS SUMMARY | 2024-07-09 13:17 | XMS_ITS | Encounter Summary ---
Author Organization [facility] Address [address] [place] [address] Care Team Providers Care Swamper Name Role Phone Unavailable Primary Care Provider Unavailabl e Encounter Details Date Type Department Care Team (Late st Contact Info) Description 12/16/2023 Lab Requisition [facility] - DermPath Lab [address] [place] [id number] Aniya Logan APRN-BUS VAN DRIVER [address] [place] [address] Social History Tobacco Use Types Packs/Day Years Used Date Smoking Tobacco: Never Assessed Comments Unknown Sex and Gender Information Value Date Recorded Sex Assigned at Not on file 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 Gender Identity Not on file Sexual Orientation Not on file documented as of this encounter Plan of Treatment Not on file documented as of this encounter Procedures Procedure Name Priority Date/Time Associated Diagnosis Comments DERMATOPATHOLOGY Routine 12/16/2023 1:51 PM CDT documented in this encounter Results * DERMATOPATHOLOGY (12/16/2023 1:51 PM CDT) Case Report Dermatopathology Report Case: [id number] Authorizing Provider: Aniya Logan, Collected: 12/16/2023 01:51 PM CARDIOLOGY CONSULTANT-BUS VAN DRIVER Ordering Location: [facility] - Received: 12/17/2023 12:27 PM DermPath Lab Pathologist: Daniela Duarte MD Specimens: A) - Skin, left back B) - Skin, mid back 12:38 PM CDT DERMATOPATHOLOGY LABORATORY Final Diagnosis Specimen A. SKIN, left back: SEBORRHEIC KERATOSIS (L82.1) Specimen B. SKIN, mid back: LENTIGINOUS MELANOCYTIC NEVUS, JUNCTIONAL TYPE, IRRITATED AND INFLAMED (D22.5) (see microscopic description and comment) 12:38 PM [facility] DERMATOPATHOLOGY LABORATORY Clinical History A-B: R/O Atypia 12:38 PM [facility] DERMATOPATHOLOGY LABORATORY Gross Description Specimen A: Received [...] measuring 9x9x1 mm. Jar 0. 12:38 PM [facility] DERMATOPATHOLOGY LABORATORY Microscopic Description Specimen A. SKIN, [...] larger lesion, these findings may not be food products sales representative of the entire lesion. Clinicopathologic correlation is recommended. 12:38 PM [facility] DERMATOPATHOLOGY LABORATORY Disclaimer An external and internal positive and negative controls are appropriate for the histochemical, immunohistochemical and immunofluorescence stain(s) in this case (if any), except where stated explicitly. The performance characteristics of the stain(s) cited in this report were developed and its performance characteristic determined by the Dermatopathology Laboratory at [facility], directed by Dr. Noah Rosas. These tests need not be, and therefore are not, approved by the [place] Food and Drug Administration. The tests are used for clinical purposes. Billing Codes Specimen Charges Stain Charges 61962 72638 1 1 12:38 PM [facility] DERMATOPATHOLOGY LABORATORY Embedded Images 12:38 PM [facility] DERMATOPATHOLOGY LABORATORY Pathology/Cytology TISSUE SPECIMEN FROM SKIN / Unknown 12/16/2023 1:51 PM CDT 12/17/2023 12:27 PM CDT Miscellaneous samples (specimen) TISSUE SPECIMEN FROM SKIN / Unknown 12/16/2023 1:51 PM CDT 12/17/2023 12:27 PM CDT Aniya Wade Doreen CARDIOLOGY CONSULTANT-BUS VAN DRIVER LAB - PATHOLOGY/CY TOLOGY ORDERABLES Final Result DERMATOPATHOLOGY LABORATORY [facility] - Department of Dermatology [facility] [address] [place] [address], [address] [phone] documented in this encounter Visit Diagnoses Not on filedocumented in this encounter
--- OUTSIDE RECORDS SUMMARY | 2024-07-09 13:18 | XMS_ITS | Clinical Summary ---
Author Organization [facility] Address [facility] [place] [address] Care Team Providers Care Grants Analyst Name Role Phone Edu Morelos MD Primary Care Provider [phone] Allergies Active Allergy Reactions Criticality Noted Date [...] 1 - Tdap) 1977 Mammogram Screening 1998 Pneumococcal Vaccine: 50+ Years (1 of 1 - PCV) 01/13/2008 Zoster Vaccines (1 of 2) 01/13/2008 COVID-19 Vaccine (3 - 2023-2 5 season) 2023 04/27/2020, 04/06/2020 PHQ-2 (Physician [place]) 03/09/2024 RSV Immunization or 60+ Years (1 [...] complete this topic Insurance [employer] Care Teams Grants Analyst Relationship Specialty Start Date End Date Edu Morelos MD [address] [facility] [address] [place] [address] PCP - General INTERNAL MEDICINE 09/30/23
--- OUTSIDE RECORDS SUMMARY | 2024-07-09 13:18 | XMS_ITS | Encounter Summary ---
Author Organization [facility] Healthcare Address [address] [place] [address] Care Team Providers Care Crisis Specialist Name Role Phone Edu Morelos MD Primary Care Provide r Guzman Kam DO Unavailable [phone] Encounter Details Date Type Department Care Team (Latest Contact Info) Description 07/07/2024 8:00 AM CDT Pre-Admission Testing [facility] PreAdmission Testing [address] [place] [address] Lumbar pain; Spinal stenosis of lumbar region, unspecified whether neurogenic claudication present; Pain in other specified joint Anesthesia Record Procedure Summary Procedure Name Responsible Anesthesiologist Anesthesia Start Time Anesthesia Stop Time LUMBAR 4-LUMBAR 5 MINIMALLY INVASIVE DECOMPRESSION (Spine Lumbar) Events No events on file. Meds * Agents No agents on file. * Blood No blood administrations on file. Lines, Drains, and Airways No LDAs on file. 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 Gender Identity Not on file Sexual Orientation Not on file documented as of this encounter Last Filed Vital Signs Vital Sign Reading Time Taken Comments Blood Pressure 132/75 07/07/2024 8:07 AM CDT rt upper arm Pulse 67 07/07/2024 8:07 AM CDT Temperature 36.2 C (97.1 F) 07/07/2024 8:07 AM CDT Respiratory Rate 14 07/07/2024 8:07 AM CDT Oxygen Saturation 98% 07/07/2024 8:0 7 AM CDT Inhaled Oxygen Concentration - - Weight 54.3 kg (119 lb 12.8 oz) 07/07/2024 8:07 AM CDT Height 157.5 cm (5' 2 ) 07/07/2024 8:07 AM CDT Body Mass Index 21.91 07/07/2024 8:07 AM CDT documented in this encounter Functional Status * Audit-C Score [...] Veloz RN documented as of this encounter Miscellaneous Notes * Perioperative Nursing Note - Michelle Veloz RN - 07/07/2024 8:00 AM CDT TXA Screening Screen patient for contraindications and check all that apply: [] Allergy to tranexamic acid (absolute contraindication do not order IV or topical if patient reports allergy) [] Cardiac Stents within the past 12 months [] Renal Failure (SCR > 2.5 or CrCl < 25 ml/min) [] History of pulmonary embolism, ischemic stroke, or DVT [] Known heredity thrombophilia disorders (e.g. Antithrombin deficiency, Protein C or S deficiency,Factor V Leiden, prothrombin fragment mutation, or hyperhomocysteinemia) [] Acquired thrombophilia disorders (e.g. anti-cardiolipin antibodies, antiphospholipid syndrome, oral or parenteral anticoagulation that will not be held prior to surgery, , or hormone replacement therapy) [x] No Contraindications * Perioperative Nursing Note - Nuris Finley RN - 07/07/2024 8:00 AM CDT CCN NOTE The following labs from 07/07/24 Pretesting were reviewed for 07/21/24 surgery: [x] CBC [x] CMP - Ca+ 11.4, SC sent to surgeon, fax sent to PCP along w/ EKG; Nuris Finley RN 07/08/2024 8:33 AM OK for OR per surgeon. [] BMP [] A1C [x] PT/INR [x] PTT [x] MRSA Nasal Swab [x] Type and Screen [] Urine Nicotine Screening [] Urine Microscopic [x] EKG - pending Nuris Finley RN 07/08/2024 8:33 AM EKG NSR. [] CXR [] COVID Ok for surgery per Anesthesia guidelines. No further Interventions at this time. * Pre-Procedure Instructions - Michelle Veloz RN - 07/07/2024 8:00 AM CDT Images from the original note were not included. [address] [address] Surgery Reminder Checklist: Please arrive to [facility] for scheduled surgery on 07/21/24 at 5:30 am. If the surgeon's office tells you to arrive at a different time after we have given you instructions, please follow their instructions. Please use Entrance A also known as [facility], then follow the signs for OutpatientSurgery. ONE - TWO WEEKS BEFORE YOUR PROCEDURE You may take TYLENOL (ACETAMINOPHEN) as needed for pain. PLEASE FOLLOW YOUR SURGEON'S GUIDELINES REGARDING ASPIRIN AND ASPIRIN CONTAINING PRODUCTS, IBUPROFEN, ALEVE, MULTIVITAMINS, HERBAL SUPPLEMENTS, FISH OIL AND VITAMIN E. YOU MAY BE REQUIRED TO TO HOLD THESE FOR 1-2 WEEKS BEFORE SURGERY. 3-5 days before surgery use Incentive Spirometer 10 breaths per hour during wake hours only. See attached handout. EVENING BEFORE YOUR PROCEDURE Shower with Antibacterial soap followed by Chlorhexidine soap the evening before your surgery. After showering, do not apply any hair products, lotions, colognes, oils, deodorant, powder, or make-up. Antibacterial Soap Examples: Dial or Safeguard. DO NOT EAT after midnight (this includes food, gum, mints, hard candy, and chewable antacids). Drink 2 of the Pre surgery Ensure clear shakes MORNING OF YOUR PROCEDURE May have clear liquids only before 3:30 AM. This includes, Water, Apple Juice, Gatorade, Black Coffee or Sprite. (NO Dairy, Milk Products, Creamer, Red Gatorade or Charleston Juice) Nothing by mouth the 4 hours prior to your procedure, NOT EVEN WATER. Drink 1 Pre Surgery Ensure clear shake and drink by 4:30AM Kevin your teeth morning of procedure. Use mouth wash if available. Do not swallow any liquids whencleansing your mouth. Shower with Antibacterial soap followed by Chlorhexidine soap. After showering, do not apply any hair products, lotions, colognes, oils, deodorant, powder, or make-up. Expect to remove wigs, dentures/partials, contact lenses, piercings, hearing aids, and prostheses before surgery. Do not wear jewelry to the hospital on the day of surgery. Bring glasses and hearing aids (with cases for both), inhalers, and CPAP/BiPAP machine day of surgery. If you will be admitted to the hospital after surgery, feel free to bring a toiletry bag. ONLY TAKE THE FOLLOWING MEDICATIONS MORNING OF SURGERY: Gabapentin and Sertraline (you may take your medications with enough water to safely swallow them) Do not take: Fosamax, Vitamin D VISITOR POLICY Patients in outpatient/surgical settings may have 2 dedicated visitors; children may be permitted as one of the 2 visitors, provided they are accompanied by a caregiver as the second visitor. Children can not be left unattended in the hospital setting. GENERAL INSTRUCTIONS: Please call us with any new prescriptions that were not discussed during your Pretesting Phone Call/Visit so that we can give you appropriate pre op instructions. DO NOT drink alcohol, smoke cigarettes/vapes/e-cigarettes during the 12 hours prior to your surgery. DO NOT use marijuana for 3 days prior to surgery. DO NOT take illicit/illegal drugs of any kind for 7 days prior to surgery. Arrange for a friend or family member to pick you up from the hospital, drive you home, and assist you if necessary. You will not be allowed to drive home. NO non-medical transport services (buses, taxis, etc.) allowed. A responsible adult must be with you for 24 hours after your procedure. Call your surgeon if you develop a rash, fever, cold, or any other signs/symptoms of infection prior to surgery. You must call your surgeon if you have signs or symptoms of COVID or FLU. If someone in your home tests positive for COVID please call your surgeon. Your surgery may need to be postponed. MORNING OF SURGERY PLEASE BRING: Photo ID, Insurance card. IODINATED NASAL SWAB MORNING OF SURGERY: You will receive an Iodinated nasal swab one hour prior toyour surgery on the morning of surgery. This is to reduce the bacteria in the nose which reduces the risk of infection after surgery. Any questions/concerns, please call Admission and Testing Center at [phone]. Morning of surgery question/concerns, please call Outpatient Surgery at [phone]. Thank You for choosing [facility] Surgery department! documented in this encounter Plan of Treatment Upcoming Encounters Date Type Department Care Team (Latest Contact Info) Description 07/21/2024 7:30 AM CDT Hospital Encounter [facility] OR [address] [place] [address] Ranulfo Morton MD [address] [place] [address] 07/21/2024 7:30 AM CDT Anesthesia Event [facility] OR [address] [place] [address] Erika Phipps, CLASSICS TEACHER [address] [place] [id number] 07/21/2024 7:30 AM CDT - 07/21/2024 9:30 AM CDT Surgery [facility] OR [address] [place] [address] Ranulfo Morton MD [address] [place] [address] LUMBAR 4-LUMBAR 5 MINIMALLY INVASIVE DECOMPRESSION Scheduled Procedures Name Priority Associated Diagnoses Date/Ti me DECOMPRESSION LUMBAR LAMINECTOMY Lumbar pain Spinal stenosis of lumbar region, unspecified whether neurogenic claudication present 07/21/2024 7:30 AM CDT documented as of this encounter Procedures Procedure Name Priority Date/Time Associated Diagnosis Comments TYPE AND SCREEN 14 DAY Routine 07/07/2024 8:02 AM CDT Lumbar pain Spinal stenosis of lumbar region, unspecified whether neurogenic claudication present EGFR Routine 07/07/2024 8:02 AM CDT Lumbar pain Spinal stenosis of lumbar region, unspecified whether neurogenic claudication present DIFFERENTIAL AUTO Routine 07/07/2024 8:0 2 AM CDT Lumbar pain Spinal stenosis of lumbar region, unspecified whether neurogenic claudication present INFECTION PREVENTION MRSA ONLY (STAPHYLOCOCCUS AUREUS) PCR Routine 07/07/2024 8:02 AM CDT Lumbar pain Spinal stenosis of lumbar region, unspecified whether neurogenic claudication present CBC WITH AUTO DIFFERENTIAL Routine 07/07/2024 8:02 AM CDT Lumbar pain Spinal stenosis of lumbar region, unspecified whether neurogenic claudication present ABO/RH Routine 07/07/2024 8:02 AM CDT Lumbar pain Spinal stenosis of lumbar region, unspecified whether neurogenic claudication present APTT Routine 07/07/2024 8:02 AM CDT Lumbar pain Spinal stenosis of lumbar region, unspecified whether neurogenic claudication present Pain in other specified joint PROTIME-INR Routine 07/07/2024 8:02 AM CDT Lumbar pain Spinal stenosis of lumbar region, unspecified whether neurogenic claudication present Pain in other specified joint ANTIBODY SCREEN Routine 07/07/2024 8:02 AM CDT Lumbar pain Spinal stenosis of lumbar region, unspecified whether neurogenic claudication present COMPREHENSIVE METABOLIC PANEL Routine 07/07/2024 8:02 AM CDT Lumbar pain Spinal stenosis of lumbar region, unspecified whether neurogenic claudication present ECG 12-LEAD Routine 07/07/2024 7:51 AM CDT Lumbar pain Spinal stenosis of lumbar region, unspecified whether neurogenic claudication present documented in this encounter Results * eGFR (07/07/2024 8:02 AM CDT) eGFR >90 >=60 mL/min/1. 73 m2 Comment: Interpretive Data Reference Interval Normal >/= 90 mL/min/1.73m2 Mildly decreased* 60 - 89 mL/min/1.73m2 Mildly to moderately decreased 45 - 59 mL/min/1.73m2 Moderately to severely decreased 30 - 44 mL/min/1.73m2 Severely decreased 15 - 29 mL/min/1.73m2 Kidney Failure < 15 mL/min/1.73m2 *Relative to young adult level Estimated glomerular filtration rate is determined by the 2020 CKD-EPI equation recommended by the National Kidney Foundation (A Unifying Approach to GFR Estimation: Recommendations of the NKF-ASK Task Force on Reassessing the Inclusion of Race in Diagnosing Kidney Disease, JASN 2020). The CKD-EPI equation should not be used for patients with unstable renal function and has not been validated in children and those over 70. Current interpretive data was last reviewed 2021. Blood 07/07/2024 8:02 AM CDT 07/07/2024 8:11 AM CDT us Ranulfo Morton MD LAB BLOOD ORDERABLES Fin al Result [facility] [address] [facility] [place] [address] * Differential, auto (07/07/2024 8:02 AM CDT) Pathologist [facility] Neutrophil abs 2.61 1.50 - 6.50 K/cumm Imm gran abs 0.01 0.00 - 0.10 K/cumm [facility] Lymphocyte abs 1.72 0.80 - 3.30 K/cumm [facility] Monocyte abs 0.55 0.20 - 0.80 K/cumm [facility] Eosinophil abs 0.18 0.00 - 0.50 K/cumm [facility] Basophil abs 0.04 0.00 - 0.10 K/cumm [facility] Neutrophil pct 51.0 % [facility] Comment: Interpretive Data Percent cell count reference ranges are not reported, since discordance with absolute values may lead to misinterpretation of CBC data. Current Interpretive Data was last revised on 2017. Imm gran pct 0.2 % [facility] Comment: Interpretive Data Percent cell count reference ranges are not reported, since discordance with absolute values may lead to misinterpretation of CBC data. Current Interpretive Data was last revised on 2017. Lymphocyte pct 33.7 % [facility] Comment: Interpretive Data Percent cell count reference ranges are not reported, since discordance with absolute values may lead to misinterpretation of CBC data. Current Interpretive Data was last revised on 2017. Monocyte pct 10.8 % [facility] Comment: Interpretive Data Percent cell count reference ranges are not reported, since discordance with absolute values may lead to misinterpretation of CBC data. Current Interpretive Data was last revised on 2017. Eosinophil pct 3.5 % [facility] Comment: Interpretive Data Percent cell count reference ranges are not reported, since discordance with absolute values may lead to misinterpretation of CBC data. Current Interpretive Data was last revised on 2017. Basophil pct 0.8 % [facility] Comment: Interpretive Data Percent cell count reference ranges are not reported, since discordance with absolute values may lead to misinterpretation of CBC data. Current Interpretive Data was last revised on 2017. Blood 07/07/2024 8:02 AM CDT 07/07/2024 8:11 AM CDT Ranulfo Morton MD LAB BLOOD ORDERABLES Fin al Result Performing Organization Address [facility] de Phone Number [address] [address] * Antibody screen (07/07/2024 8:02 AM CDT) Nura, indirect, Gel Interpretation Negative ABSC Blood 07/07/2024 8:02 AM CDT 07/07/2024 8:13 AM CDT [facility]ative [facility] - 07/07/2024 8:50 AM CDT Is this test being ordered in advance for a procedure?->Yes Expected date of procedure:->07/21/24 Has the patient been transfused in the past 3 months?->No Has the patient been in the past 3 months?->No Ranulfo Morton MD LAB BLOOD BANK TEST ORDE RABLES Final Result Performing Organization Address [facility] de Phone Number [address] [address] * ABO/Rh (07/07/2024 8:02 AM CDT) ABO/Rh A Positive Blood 07/07/2024 8:02 AM CDT 07/07/2024 8:13 AM CDT Narrative [facility] - 07/07/2024 8:50 AM CDT Is this test being ordered in advance for a procedure?->Yes Expected date of procedure:->07/21/24 Has the patient been transfused in the past 3 months?->No Has the patient been in the past 3 months?->No Ranulfo Morton MD LAB BLOOD BANK TEST JANNIE GREER Final Result Performing Organization Address [facility] de Phone Number ARACELI [address] [address] * CBC with auto differential (07/07/2024 8:02 AM CDT) [facility] WBC 5.11 3.80 - 9.90 K/cumm Hgb 12.6 11.9 - 15.5 g/dL [facility] Hct 38.1 35.6 - 45.5 % [facility] Plt 321 150 - 400 K/cumm [facility] MPV 9.5 9.1 - 12.3 fL [facility] RBC 4.13 3.90 - 5.20 M/cumm [facility] MCV 92.3 81.3 - 96.4 fL [facility] MCH 30.5 27.1 - 33.3 pg [facility] MCHC 33.1 32.3 - 35.7 g/dL [facility] RDW CV 13.0 11.1 - 14.9 % [facility] RDW SD 43.9 35.7 - 48.1 fL [facility] NRBC abs 0.00 0.00 - 0.01 K/cumm [facility] Blood 07/07/2024 8:02 AM CDT 07/07/2024 8:11 AM CDT Ranulfo Morton MD LAB BLOOD ORDERABLES Fin al Result Performing Organization Address [facility] de Phone Number ARACELI [address] [employer] [place] [address] * Protime-INR (07/07/2024 8:02 AM CDT) Pathologist [facility] PT 13.4 12.0 - 14.6 sec INR 1.0 0.9 - 1.2 [facility] Comment: Ref Range High Interpretive data Oral anticoagulant therapeutic ranges: Venous thromboembolism prophylaxis or treatment: 2.0-3.0 CARDIOLOGY Standard range: 2.0-3.0 High-intensity range: 2.5-3.5 Refer to indication-specific guidelines for appropriate target ranges for prosthetic heart valve replacement. Current interpretive data was last revised on 2019. Blood 07/07/2024 8:02 AM CDT 07/07/2024 8:11 AM CDT Ranulfo Morton MD LAB BLOOD ORDERABLES Fin al Result Performing Organization Address [facility] de Phone Number ARACELI [address] [address] * aPTT (07/07/2024 8:02 AM CDT) Pathologist [facility] aPTT 27 22 - 37 sec Comment: Interpretive data aPTT test has not been evaluated for monitoring heparin therapy. The anti-Xa is the preferred test. Current interpretive data was last revised on 2019. Blood 07/07/2024 8:02 AM CDT 07/07/2024 8:11 AM CDT Ranulfo Morton MD LAB BLOOD ORDERABLES Fin al Result Performing Organization Address [facility] de Phone Number [address] [address] * (ABNORMAL) Comprehensive metabolic panel (07/07/2024 8:02 AM CDT) Pathologist [facility] Sodium 133(L) 135 - 145 mmol/L Potassium, pl 4.0 3.3 - 4.9 mmol/L [facility] Chloride 100 97 - 110 mmol/L [facility] CO2 25 22 - 32 mmol/L [facility] Anion gap 8 2 - 15 mmol/L [facility] BUN 16 6 - 25 mg/dL [facility] Creatinine 0.47(L) 0.60 - 1.10 mg/dL [facility] Glucose 105 70 - 199 mg/dL [facility] Comment: Interpretive Data Fasting glucose >/= 126 mg/dl is diagnostic for diabetes. Fasting is defined as no caloric intake for at least 8 hours. Fasting glucose between 100 mg/dl to 125 mg/dl is diagnostic of prediabetes. In a patient with classic symptoms of hyperglycemia or hyperglycemic crisis, a random glucose >/= 200 mg/dl is diagnostic for diabetes. In the absence of unequivocal hyperglycemia, results should be confirmed by repeat testing. The classification and Diagnosis of Diabetes Diabetes Care 202; 46: S19-S40. Current interpretive data was last revised 2022. Calcium 11.4(H) 8.5 - 10.3 mg/dL [facility] Bilirubin, total 0.3 0.1 - 1.2 mg/dL [facility] Protein, pl 7.4 6.5 - 8.5 g/dL [facility] Albumin 4.5 3.5 - 5.0 g/dL [facility] Alk phos 80 40 - 130 Units/L [facility] ALT 18 7 - 45 Units/L [facility] AST 21 10 - 45 Units/L [facility] Blood 07/07/2024 8:02 AM CDT 07/07/2024 8:11 AM CDT Ranulfo Morton MD LAB BLOOD ORDERABLES Fin al Result Performing Organization Address City/[facility] Co de Phone Number ARACELI [address] [facility] Department of Laboratories [place], [place] [id number] * Infection Prevention MRSA Only (Staphylococcus aureus) PCR Nasal (07/07/2024 8:02 AM CDT) PCR Scrn, Methicillin resistant Staphylococcus aureus (MRSA) Not Detected Not Detected Comment: Interpretive Data Testing performed using Nucleic Acid Amplification with the CepIwebalize Xpert MRSA NxG Assay. This assay detects target DNA from mecA, mecC and the SCCmec insertion site of Staphylococcus aureus using Real-Time PCR and has been cleared by the FDA. Performance characteristics have been verified by the [facility]. Current Interpretive Data was last revised on 2022 Nasal 07/07/2024 8:02 AM CDT 07/07/2024 8:13 AM CDT Ranulfo Morton MD LAB MICROBIOLOGY - GENER AL ORDERABLES Final Result ARACELI [address] [facility] Department [place] [address] * ECG 12 lead (07/07/2024 7:51 AM CDT) Ventricular Rate EKG/Min 66 BPM [facility] Atrial Rate 66 BPM [facility] CO-Interval (MSEC) 132 ms [facility] QRS-Interval (MSEC) 86 ms [facility] QT-Interval (MSEC) 374 ms [facility] QTc 392 ms [facility] P [place] 75 degrees [facility] R [place] 51 degrees [facility] T [place] 60 degrees [facility] Diagnosis Normal sinus rhythm Normal ECG No previous ECGs available Confirmed by JEREMY MERCADO M.D. ([id number]) on 07/07/2024 3:31:17 PM [facility] 07/07/2024 7:51 AM CDT 07/07/2024 3:31 PM CDT us Ranulfo Morton MD ECG ORDERABLES Final Re sult [facility] documented in this encounter Visit Diagnoses Diagnosis Lumbar pain Lumbago Spinal stenosis of lumbar region Lumbar pain Lumbago Spinal stenosis of lumbar region, unspecified whether neurogenic claudication present Pain in other specified joint Lumbar pain Lumbago Spinal stenosis of lumbar region, unspecified whether neurogenic claudication present documented in this encounter Care Teams Crisis Specialist Relationship Specialty Start Date End Date Edu Morelos MD [address] [place] [address] PCP - General Emergency Medicine 04/29/24 Guzman Kam DO [address] [place] [address] Log Carrier Operator Cardiology 06/16/24 documented as of this encounter
--- OUTSIDE RECORDS SUMMARY | 2024-07-09 13:18 | XMS_ITS | Clinical Summary ---
Author Organization [facility] Address [address] [place] [address] Care Team Providers Care Briquetting Machine Operator Name Role Phone Edu Morelos MD Primary Care Provide r Guzman Kam Mary DO Unavailable Allergies Active Allergy Reactions Criticality Noted Date Comments Amoxicillin Other (See comments) High 10/05/2018 Itching. PCN Tramadol Rash Medium 07/25/2017 Medications calcium carbonate-vitam in D3 1,250mg (500mg elemental) - 200 units per tablet Take 1 tablet by mouth 2 (two) times a day with meals Active multivitamin with minerals tablet Take 1 tablet by mouth daily Active cyclobenzaprine (FLEXERIL) 10 mg tablet Take 10 mg by mouth 2 (two) times a day as needed for muscle spasms. Active ferrous sulfate 325 mg (65 mg of elemental iron) tabletIndicatio ns:Iron Deficiency Anemia Take 1 tablet (325 mg total) by mouth 2 (two) times a day after lunch and dinner. 20 tablet 08/21/19 18 Active Lactobac no.41/Bifidobac t no.7 (PROBIOTIC-10 ORAL) Take by mouth Active alendronate (FOSAMAX) 70 mg tabletIndicatio ns:Osteoporosis screening,Age-r elated osteoporosis without current pathological fracture TAKE 1 TABLET BY MOUTH EVERY 7 DAYS 12 tablet 3 05/03/19 22 Active Additional Information Patient taking differently: 70 mg oral Every 7 days, wednesdays, Informant: Self, Reported on 07/07/2024 methocarbamoL (ROBAXIN) 750 mg tablet Take 1 tablet (750 mg total) by mouth 4 (four) times a day Active sertraline (ZOLOFT) 50 mg tablet Take 1 tablet (50 mg total) by mouth daily Active gabapentin (NEURONTIN) 600 mg tabletIndicatio ns:Spinal stenosis of lumbar region, unspecified whether neurogenic claudication present,Lumbar pain Take 0.5 tablets (300 mg total) by mouth 3 (three) times a day 45 tablet 06/11/19 026 Active Additional Information Patient taking differently:300 mg oral 3 times daily,1/2 morning and midday and whole tab at night, Informant: Self, Reported on 07/07/2024 cholecalciferol (VITAMIN D-3) 2000 unit capsule Take 2 capsules (4,000 Units total) by mouth daily 50mcg 2 tabs daily Active ALPRAZolam (XANAX) 0.5 mg tablet Take 1 tablet (0.5 mg total) by mouth nightly as needed for anxiety Active albuterol HFA (PROVENTIL HFA,VENTOLIN HFA,PROAIR HFA) 90 mcg/actuation inhaler Inhale 2 puffs every 6 (six) hours as needed for wheezing Active gabapentin (NEURONTIN) 600 mg tabletIndicatio ns:Spinal stenosis of lumbar region, unspecified whether neurogenic claudication present,Lumbar pain Take 0.5 tablets (300 mg total) by mouth 3 (three) times a day 45 tablet 04/27/19 025 Discontinued Active Problems Problem Noted Date Diagnosed Date Lumbar pain 06/10/2024 Spinal stenosis of lumbar region 06/10/2024 Aftercare following right hip joint replacement surgery 07/15/2017 Prophylactic antibiotic 07/15/2017 Encounters Date Type Department Care Team Description 07/07/2024 8:00 AM CDT Pre-Admission Testing [facility] PreAdmission Testing [address] [place] [address] Lumbar pain; Spinal stenosis of lumbar region, unspecified whether neurogenic claudication present; Pain in other specified joint 07/05/2024 Orders Only [facility] PreAdmission Testing [address] [place] [address] Michelle Veloz RN 06/10/2024 Documentation [facility] [address] [facility] [address] [place] [address] Claudia Loyd RN 05/18/2024 2:00 PM CDT Office Visit [facility] Neurosurgery Clinic [address] [facility] [address], [address] [place] [address] Ranulfo Morton MD Neck pain (Primary Dx) 05/17/2024 Telephone [facility] Scheduling [address] [place] [address] Madiha Guillermo 05/16/2024 - 05/16/2024 11:59 PM CDT Hospital Encounter [facility] Outside Films [address] [place] [address] Discharge Disposition: Discharge to home or self care 04/27/2024 10:43 AM CANVASSING MANAGER - 04/27/2024 11:59 PM CANVASSING MANAGER Hospital Encounter [facility] [address] [place] [address] Spinal stenosis of lumbar region, unspecified whether neurogenic claudication present; Lumbar pain Discharge Disposition: Discharge to home or self care 04/27/2024 10:30 AM CANVASSING MANAGER Office Visit [facility] Neurosurgery Clinic [facility] [facility] [address] [place] [address] Vinod Wellington PA Spinal stenosis of lumbar region, unspecified whether neurogenic claudication present (Primary Dx); Lumbar pain; Neck pain from Last 3 Months Surgical History Surgery Date Site/Laterality Comments HYSTERECTOMY 03/09/2003 - 03/08/2004 ovaries still intact CHOLECYSTECTOMY open TUBAL LIGATION FINGER GANGLION CYST EXCISION Right pointer finger JOINT REPLACEMENT 03/09/2019 - 03/08/2020 Right THR COLONOSCOPY normal Medical History Medical History Date Comments Depression Chronic back pain Hard to intubate decreased exten quita, ant larynx, used glidescop Dental crown present Presence of upper and lower permanent dental bridges top Tooth missing right lower back GERD (gastroesophageal reflux disease) no meds History of shingles Family History Medical History Relation Name Comments [...] on file Legal Sex Female 1:24 AM CANVASSING MANAGER Gender Identity Not on file Sexual [...] Mass Index 21.91 07/07/2024 8:07 AM CDT Plan of Treatment Upcoming Encounters Date Type Department Care Team (Latest Contact Info) Description 07/21/2024 7:30 AM CDT Hospital Encounter [facility] OR [address] [place] [address] Ranulfo Morton MD [address] [place] [address] 07/21/2024 7:30 AM CDT Anesthesia Event [facility] OR [address] [place] [address] Erika Phipps, HOME HEALTH PROVIDER [address] [place] [address] 07/21/2024 7:30 AM CDT - 07/21/2024 9:30 AM CDT Surgery [facility] OR [address] [place] [address] Ranulfo Morton MD [address] [place] [address] LUMBAR 4-LUMBAR 5 MINIMALLY INVASIVE DECOMPRESSION Scheduled Procedures Name Priority Associated Diagnoses Date/Ti me DECOMPRESSION LUMBAR LAMINECTOMY Lumbar pain Spinal stenosis of lumbar region, unspecified whether neurogenic claudication present 07/21/2024 7:30 AM CDT Health Maintenance Due Date Last Done Comments Colon Cancer Screening-Colonoscopy 1960 Depression Screening 1960 Hepatitis C Screening 1960 DTaP/Tdap/Td Vaccine (1 - Tdap) 1969 Hepatitis B Screening 01/13/1976 Pneumococcal vaccine 65+ (1 of 1 - PCV) 01/13/2008 Zoster Vaccine (1 of 2) 01/13/2008 Osteoporosis Screening-Bone Density Scan 01/09/2022 01/10/2020, 10/05/2018 Well Visit 65+ 2023 Breast Cancer Screening-Mammogram 06/03/2024 06/04/2023, 10/23/2021, 09/06/2020, Additional history exists Influenza Vaccine (Season Ended) 2024 12/16/19 20, 12/28/2018 Fall Risk Assessment 07/07/2025 07/07/2024 Medical Devices Implanted Type Area Wind Turbine Controls Engineer Device Identifier Shelf Expiration Date Model / Serial / Lot [employer] Ringloc+ 50mm Limit Hole Shell Hip Acetabular - [id number] Implanted:Qty: 1 on 08/19/2017 by Ferdinand Ascencio MD at [facility] Right: Hip [employer] [id number] 12/24/2026 [id number] / / [id number] [employer] Ringloc 36mm High Wall Liner Hip +3mm 23 Acetabular E-Poly - [id number] Implanted:Qty: 1 on 08/19/2017 by Ferdinand Ascencio MD at [facility] Right: Hip [employer] [id number] 06/25/2022 [id number] / / [id number] [employer] 6.5mm 45mm Low Profile Screw Hip Acetabular Cancellous Dome Bone - [id number] Implanted:Qty: 1 on 08/19/2017 by Ferdinand Ascencio MD at [facility] Right: Hip [employer] 08/02/2026 [id number] / / [id number] [employer] Echo Bi-Metric 12mm 140mm Noncollar Full Proximal Profile Press - [id number] Implanted:Qty: 1 on 08/19/2017 by Ferdinand Ascencio MD at [facility] Right: Hip [employer] [id number] 10/30/2025 [id number] / / [id number] [employer] G7 Type 1 Sleeve Hip Standard Offset Taper Centering Titanium - [id number] Implanted:Qty: 1 on 08/19/2017 by Ferdinand Ascencio MD at [facility] Right: Hip [employer] [id number] 11/28/2026 [id number] / / [id number] Head Femoral G7 Biolox Delta Biolox Option Od36 Mm Hip - [id number] Implanted:Qty: 1 on 08/19/2017 by Ferdinand Ascencio MD at [facility] Right: Hip [employer] [id number] 09/11/2026 [id number] / / [id number] Procedures Procedure Name Priority Date/Time Associated Diagnosis Comments EGFR Routine 07/07/2024 8:02 AM CDT Lumbar pain Spinal stenosis of lumbar region, unspecified whether neurogenic claudication present DIFFERENTIAL AUTO Routine 07/07/2024 8:0 2 AM CDT Lumbar pain Spinal stenosis of lumbar region, unspecified whether neurogenic claudication present ANTIBODY SCREEN Routine 07/07/2024 8:02 AM CDT Lumbar pain Spinal stenosis of lumbar region, unspecified whether neurogenic claudication present ABO/RH Routine 07/07/2024 8:02 AM CDT Lumbar pain Spinal stenosis of lumbar region, unspecified whether neurogenic claudication present CBC WITH AUTO DIFFERENTIAL Routine 07/07/2024 8:02 AM CDT Lumbar pain Spinal stenosis of lumbar region, unspecified whether neurogenic claudication present PROTIME-INR Routine 07/07/2024 8:02 AM CDT Lumbar pain Spinal stenosis of lumbar region, unspecified whether neurogenic claudication present Pain in other specified joint APTT Routine 07/07/2024 8:02 AM CDT Lumbar pain Spinal stenosis of lumbar region, unspecified whether neurogenic claudication present Pain in other specified joint COMPREHENSIVE METABOLIC PANEL Routine 07/07/2024 8:02 AM CDT Lumbar pain Spinal stenosis of lumbar region, unspecified whether neurogenic claudication present TYPE AND SCREEN 14 DAY Routine 07/07/2024 [...] lumbar region, unspecified whether neurogenic claudication present MSK MR OUTSIDE REFERENCE Routine 05/16/2024 12:00 AM CDT XR LUMBAR SPINE AP LAT FLEX EX Schedule Routine, Read Routine (OP Routine) 04/27/2024 11:10 AM CANVASSING MANAGER Spinal stenosis of lumbar region, unspecified whether neurogenic claudication present Lumbar pain XR SCOLIOSIS AP LAT Schedule Routine, Read Routine (OP Routine) 04/27/2024 11:10 AM CANVASSING MANAGER Spinal stenosis of lumbar region, unspecified whether neurogenic claudication present Lumbar pain DEXA AXIAL SKELETON BONE DENSITY 1 OR MORE SITES Schedule Routine, Read Routine (OP Routine) 01/10/2020 10:11 AM CANVASSING MANAGER Osteoporosis screening from Last 3 Months or Most Recently Relevant to Health Maintenance Results * eGFR (07/07/2024 8:02 AM CDT) [...] MD LAB BLOOD ORDERABLES Fin al Result [facility] [address] [facility] Department [place] [address] * Differential, auto (07/07/2024 8:02 AM CDT) Pathologist [facility] Neutrophil abs 2.61 1.50 - 6.50 K/cumm Imm gran abs 0.01 0.00 - 0.10 K/cumm [facility] Lymphocyte abs 1.72 0.80 - 3.30 K/cumm [facility] Monocyte abs 0.55 0.20 - 0.80 K/cumm [facility] Eosinophil abs 0.18 0.00 - 0.50 K/cumm [facility] Basophil abs 0.04 0.00 - 0.10 K/cumm [facility] Neutrophil pct 51.0 % [facility] Comment: Interpretive Data Percent cell count reference ranges are not reported, since discordance with absolute values may lead to misinterpretation of CBC data. Current Interpretive Data was last revised on 2017. Imm gran pct 0.2 % [facility] Comment: Interpretive Data Percent cell count reference ranges are not reported, since discordance with absolute values may lead to misinterpretation of CBC data. Current Interpretive Data was last revised on 2017. Lymphocyte pct 33.7 % [facility] Comment: Interpretive Data Percent cell count reference ranges are not reported, since discordance with absolute values may lead to misinterpretation of CBC data. Current Interpretive Data was last revised on 2017. Monocyte pct 10.8 % [facility] Comment: Interpretive Data Percent cell count reference ranges are not reported, since discordance with absolute values may lead to misinterpretation of CBC data. Current Interpretive Data was last revised on 2017. Eosinophil pct 3.5 % [facility] Comment: Interpretive Data Percent cell count reference ranges are not reported, since discordance with absolute values may lead to misinterpretation of CBC data. Current Interpretive Data was last revised on 2017. Basophil pct 0.8 % [facility] Comment: Interpretive Data Percent cell count reference ranges are not reported, since discordance with absolute values may lead to misinterpretation of CBC data. Current Interpretive Data was last revised on 2017. Blood 07/07/2024 8:02 AM CDT 07/07/2024 8:11 AM CDT Ranulfo Morton MD LAB BLOOD ORDERABLES Fin al Result Performing Organization Address [facility] Co de Phone Number ARACELI [address] [address] * Infection Prevention MRSA Only (Staphylococcus aureus) PCR Nasal (07/07/2024 8:02 AM CDT) [facility] PCR Scrn, Methicillin resistant Staphylococcus aureus (MRSA) Not Detected Not Detected Comment: Interpretive Data Testing performed using Nucleic Acid Amplification with the [employer] Xpert MRSA NxG Assay. This assay detects target DNA from mecA, mecC and the SCCmec insertion site of Staphylococcus aureus using Real-Time PCR and has been cleared by the FDA. Performance characteristics have been verified by the [facility]. Current Interpretive Data was last revised on 2022 Nasal 07/07/2024 8:02 AM CDT 07/07/2024 8:13 AM CDT Ranulfo Morton MD LAB MICROBIOLOGY - GENER AL ORDERABLES Final Result Performing Organization Address [facility] de Phone Number ARACELI [address] [place] [address] * CBC with auto differential (07/07/2024 8:02 AM CDT) [facility] WBC 5.11 3.80 - 9.90 K/cumm Hgb 12.6 11.9 - 15.5 g/dL [facility] Hct 38.1 35.6 - 45.5 % [facility] Plt 321 150 - 400 K/cumm [facility] MPV 9.5 9.1 - 12.3 fL [facility] RBC 4.13 3.90 - 5.20 M/cumm [facility] MCV 92.3 81.3 - 96.4 fL [facility] MCH 30.5 27.1 - 33.3 pg [facility] MCHC 33.1 32.3 - 35.7 g/dL [facility] RDW CV 13.0 11.1 - 14.9 % [facility] RDW SD 43.9 35.7 - 48.1 fL [facility] NRBC abs 0.00 0.00 - 0.01 K/cumm [facility] Blood 07/07/2024 8:02 AM CDT 07/07/2024 8:11 AM CDT Ranulfo Morton MD LAB BLOOD ORDERABLES Fin al Result Performing Organization Address [facility] de Phone Number [address] [place] [address] * ABO/Rh (07/07/2024 8:02 AM CDT) ABO/Rh A Positive Blood 07/07/2024 8:02 AM CDT 07/07/2024 8:13 AM CDT Narrative [facility] - 07/07/2024 8:50 AM CDT Is this test being ordered in advance for a procedure?->Yes Expected date of procedure:->07/21/24 Has the patient been transfused in the past 3 months?->No Has the patient been in the past 3 months?->No Ranulfo Morton MD LAB BLOOD BANK TEST ORDE RABLES Final Result Performing Organization Address [facility] de Phone Number [address] [place] [address] * aPTT (07/07/2024 8:02 AM CDT) aPTT 27 22 - 37 sec Comment: Interpretive data aPTT test has not been evaluated for monitoring heparin therapy. The anti-Xa is the preferred test. Current interpretive data was last revised on 2019. Blood 07/07/2024 8:02 AM CDT 07/07/2024 8:11 AM CDT Ranulfo Morton MD LAB BLOOD ORDERABLES Fin al Result Performing Organization Address [facility] Co de Phone Number [address] [place] [address] * Protime-INR (07/07/2024 8:02 AM CDT) PT 13.4 12.0 - 14.6 sec INR 1.0 0.9 - 1.2 ARACELI Comment: Ref Range High Interpretive data Oral [...] ORDERABLES Fin al Result Performing Organization Address [facility] Co de Phone Number [address] [place] [address] * Antibody screen (07/07/2024 8:02 AM CDT) Pathologist [facility] Nura, indirect, Gel Interpretation Negative ABSC Blood 07/07/2024 8:02 AM CDT 07/07/2024 8:13 AM CDT Narrative ARACELI - 07/07/2024 8:50 AM CDT Is this test being ordered in advance for a procedure?->Yes Expected date of procedure:->07/21/24 Has the patient been transfused in the past 3 months?->No Has the patient been in the past 3 months?->No Ranulfo Morton MD LAB BLOOD BANK TEST ORDE RABLES Final Result Performing Organization Address [facility] Co de Phone Number [address] [place] [address] * (ABNORMAL) Comprehensive metabolic panel (07/07/2024 8:02 AM CDT) Pathologist [facility] Sodium 133(L) 135 - 145 mmol/L Potassium, pl 4.0 3.3 - 4.9 mmol/L [facility] Chloride 100 97 - 110 mmol/L [facility] CO2 25 22 - 32 mmol/L [facility] Anion gap 8 2 - 15 mmol/L [facility] BUN 16 6 - 25 mg/dL [facility] Creatinine 0.47(L) 0.60 - 1.10 mg/dL [facility] Glucose 105 70 - 199 mg/dL [facility] Comment: Interpretive Data Fasting glucose >/= 126 [...] classification and Diagnosis of Diabetes Diabetes Care 2021; 46: S19-S40. Current interpretive data was last revised 2022. Calcium 11.4(H) 8.5 - 10.3 mg/dL [facility] Bilirubin, total 0.3 0.1 - 1.2 mg/dL [facility] Protein, pl 7.4 6.5 - 8.5 g/dL [facility] Albumin 4.5 3.5 - 5.0 g/dL [facility] Alk phos 80 40 - 130 Units/L [facility] ALT 18 7 - 45 Units/L [facility] AST 21 10 - 45 Units/L [facility] Blood 07/07/2024 8:02 AM CDT 07/07/2024 8:11 AM CDT us Ranulfo Morton MD LAB BLOOD ORDERABLES Fin al Result [facility] [address] [facility] Department [place] [address] * ECG 12 lead (07/07/2024 7:51 AM CDT) Ventricular Rate EKG/Min 66 BPM [facility] Atrial Rate 66 BPM [facility] WV-Interval (MSEC) 132 ms [facility] QRS-Interval (MSEC) 86 ms [facility] QT-Interval (MSEC) 374 ms [facility] QTc 392 ms [facility] P [place] 75 degrees [facility] R [place] 51 degrees [facility] T [place] 60 degrees [facility] Diagnosis Normal sinus rhythm Normal ECG No previous ECGs available Confirmed by JEREMY MERCADO M.D. ([id number]) on 07/07/2024 3:31:17 PM [facility] 07/07/2024 7:51 AM CDT 07/07/2024 3:31 PM CDT Ranulfo Morton MD ECG ORDERABLES Final Re sult Performing Organization Address City/[facility]/ZIP Co de Phone Number [facility] [place] * MSK MR Outside Reference (05/16/2024 12:00 AM CDT) Narrative [email or web address] - 05/18/2024 1:20 PM CDT This order has been auto-finalized and does not contain a result. us Provider Transcribed Order IMG MRI PROCEDURES Fi nal Result Performing Organization Address [facility]/ZIP Co de Phone Number [email or web address] * XR Spine Lumbar Ap Lat Flex Ext min 4 Views (04/27/2024 11:10 AM CANVASSING MANAGER) Anatomical Region Laterality Modality L-spine N/A Computed Radiogr aphy 04/28/2024 7:32 AM CANVASSING MANAGER Narrative 04/28/2024 7:35 AM CANVASSING MANAGER EXAM DESCRIPTION: XR SCOLIOSIS AP AND LATERAL; [...] by Edu Pearce M.D. T: Report ID: [id number] Reading Location: [place] [address] Procedure Note Edu Pearce MD - 04/28/2024 [...] by Edu Pearce M.D. T: Report ID: [id number] Reading Location: [place] [address] us Vinod DAVIDSON IMG XR PROCEDURES Final Re sult * XR Scoliosis 2 or 3 Views (04/27/2024 11:10 AM CANVASSING MANAGER) Anatomical Region Laterality Modality Spine N/A Computed Radiogr aphy 04/28/2024 7:32 AM CANVASSING MANAGER Narrative 04/28/2024 7:35 AM CANVASSING MANAGER EXAM DESCRIPTION: XR SCOLIOSIS AP AND LATERAL; [...] by Edu Pearce M.D. T: Report ID: [id number] Reading Location: [id number] Procedure Note Edu Pearce MD - 04/28/2024 [...] 04/28/2024 7:35 AM - Electronically signed by Eud Pearce M.D. T: Report ID: [id number] Reading Location: [id number] us Vindo DAVIDSON IMG XR PROCEDURES Final Re sult * Dexa Axial Skeleton Bone Density 1 or 2 Site (01/10/2020 10:11 AM CANVASSING MANAGER) Anatomical Region Laterality Modality Body N/A Radiographic Yaritza ging Narrative 01/10/2020 10:18 AM CANVASSING MANAGER Patient Name: Raffy Teran Date of : 1960 Date of scan: 01/10/2020 Bone mineral density was performed on a [employer] Discovery Densitometer. Machine Cross-calibration and Precision studies [...] BMD of young normal adults. References: 1) Ross, Annals of Internal Medicine 114(11): 919-923 (1990) [...] by the International Society of Clinical Densitometry. [id number] Chelo Colin MD IMG DXA PROCEDURES Final Resu lt from Last 3 Months or Most Recently Relevant to Health Maintenance Insurance [facility] MEDICARE ADVANTAGE [facility] Address: [facility] [address] [place] [address] [employer] SIG [id number] [facility] [place] [address] [employer] [facility] HMO/PPO Address: [address] [place] [address] [facility] MEDICARE ADVANTAGE [facility] Address: [address] [address] [place] [address] Advance Directives For more information, please contact: [phone] Documents on File Type Date Recorded Patient Director Regulatory Agency Expl anation ADVANCE DIRECTIVE 07/07/2024 9:37 AM Power of Quality Improvement Analyst-Medical * Full Code (Latest Code Status on File) Date Activated Date Inactivated Comments 08/24/2017 11:03 PM * Full Code Date Activated Date Inactivated Comments 08/24/2017 7:07 AM 08/24/2017 11:03 PM * Full Code Date Activated Date Inactivated Comments 08/19/2017 11:18 AM 08/21/2017 3:16 PM Care Teams Briquetting Machine Operator Relationship Specialty Start Date End Date Edu Morelos MD [address] [place] [address] PCP - General Emergency Medicine 04/29/24 Guzman Kam DO [address] [facility] [address] [place] [address] Federal Appellate Clerk Cardiology 06/16/24
--- OUTSIDE RECORDS SUMMARY | 2024-07-09 13:18 | XMS_ITS | Data Portability ---
Author Organization [employer], Main Office Address [address] [place] [address] Care Team Providers Care Repair Operator Name Role Phone CORINNE BHATIA Primary Care Provider [phone] Assessment No assessment recorded. Plan of Treatment [...] Organization Details Recorded Time Disorder of shoulder 256203961 Active Not Available [facility] 3 13:56:34 Synovitis and tenosynovi tis 795741791 Active Not Available [facility] 3 13:56:34 Brachial neuritis 86424406 Active Not Available [facility] 3 13:56:34 Bilateral tinnitus 0469200239480 Active 2024 DUKE Ahn, [employer] 5 12:27:13 Bilateral tinnitus 0361065222226 Active 2024 Jose R Penn MD [address], [address] , [employer] 5 12:28:26 Problem Notes None recorded. Medical Equipment None Reported. Allergies Allergen ID Allergen Name Allergen Category Reaction Reaction Severity Criticality Documentation Date Start Date Code Code System Note Provider Name and Address Organization Details Recorded Time 64257 amoxicill in medicatio n Not available Not available Not available 06/16/2024 723 RxNorm DUKE Ahn, [employer] 12:16:49 75787 Product containin g penicilli n (product) medicatio n Not available Not available Not available 06/16/2024 47545 8001 AYAN Hand RN null, [place] - [place] [employer] [facility] 12:16:56 Medications Name Sig Start Date Stop [...] Address Organization Details Last Updated DateTime 06/16/2024 78283.74 g 22.6 kg/m2 157.48 cm 97.6 [degF] Arleth Hand RN [facility] [employer] [facility] 06/16/2024 12:18:53 Social History Question Answer Notes LastModified by Organizat ion Details LastModified Time Tobacco Smoking Status Former Smoker QUIT AT AGE 38 Arleth Hand RN null, [facility] [employer] 06/16/2024 12:17:40 What Is Your Level Of [...] SNOMED-CT Code Diagnosis ICD10 Code Diagnosis Note [id number] Jose R Penn MD [facility] [address] [place] [address] 06/16/2024 12:00:09 06/21/2024 10:36:40 Bilateral tinnitus 6488709216 102 H93.13 Health Concerns Section Related Observation LastModified by Organization Detai ls LastModified Time None Recorded Concern Status LastModified by Organization Details LastModified Time None Recorded Advance Directives Directive None Recorded Payers Encounter Date Sequence Insurance Name Policy Number Policy Yung Covered Member ID Yung Member ID Guarantor Name 06/16/2024 1 [facility] [employer] [id number] Butch Ray [id number] Amita Ray 06/16/2024 1 [facility] (MEDICARE REPLACEMENT/A DVANTAGE - PPO) [id number] Amita Ray [id number] Amita Ray Notes Date Note Type Note Provider Name and Address Organization Details Recorded Time 06/16/2024 text/html this patient reports bilateral tinnitus for 1 year. It is intermittent in loudness. She thinks it might be stress related. She has not had an audiogram. Jose R Penn MD [address] [place] [address], [place] [address], [place], [address], [facility] 06/16/2024 12:29:16 OBGyn Episode No OBEpisode recorded.
--- OUTSIDE RECORDS SUMMARY | 2024-07-09 13:18 | XMS_ITS | Referral Summary ---
Author Organization [facility] Address [address] [place] [address] Care Team Providers Care Global Sales Director Name Role Phone Edu Morelos MD Primary Care Provide r Guzman Kam DO Unavailable [phone] Encounters Date Type Department Care Team Description 07/07/2024 8:00 AM CDT Pre-Admission Testing [facility] PreAdmission Testing [facility] [place] [address] Lumbar pain; Spinal stenosis of lumbar region, unspecified whether neurogenic claudication present; Pain in other specified joint 07/05/2024 Orders Only [facility] PreAdmission Testing [facility] [place] [address] Michelle Veloz, RN 06/10/2024 Documentation [facility] [address] [place] [address], [address] [place] [address] Claudia Loyd, RN 05/18/2024 2:00 PM CDT Office Visit [facility] [address] [place] [address] 3, [address] [place] [address] Ranulfo Morton MD Neck pain (Primary Dx) 05/17/2024 Telephone [facility] Scheduling [address] [place] [address] Madiha Guillermo 05/16/2024 - 05/16/2024 11:59 PM CDT Hospital Encounter [facility] [employer] [address] [place] [address] Discharge Disposition: Discharge to home or self care 04/27/2024 10:43 AM INSTRUCTOR BUSINESS EDUCATION - 04/27/2024 11:59 PM INSTRUCTOR BUSINESS EDUCATION Hospital Encounter [facility] [address] [place] [address] Spinal stenosis of lumbar region, unspecified whether neurogenic claudication present; Lumbar pain Discharge Disposition: Discharge to home or self care 04/27/2024 10:30 AM INSTRUCTOR BUSINESS EDUCATION Office Visit [facility] [address] [place] [address] [address], [address] [place] [address] Vinod Wellington PA Spinal stenosis of lumbar [...] 45 tablet 11 06/11/19 25 026 Active Additional Information Patient taking differently:300 [...] times a day 45 tablet 11 04/27/19 025 Discontinued Active Problems Problem Noted [...] on file Legal Sex Female 1:24 AM INSTRUCTOR BUSINESS EDUCATION Gender Identity Not on file Sexual Orientation [...] Description 07/21/2024 7:30 AM CDT Hospital Encounter [facility] [place] [address] [place] [address] Ranulfo Morton MD [address] [place] [address] 07/21/2024 7:30 AM CDT Anesthesia Event [facility] [place] [address] [place] [address] Erika Phipps NP [address] [place] [address] 07/21/2024 7:30 AM CDT - 07/21/2024 9:30 AM CDT Surgery [address] [address] Ranulfo Morton MD [address] [place] [address] LUMBAR 4-LUMBAR 5 MINIMALLY INVASIVE DECOMPRESSION Scheduled Procedures Name Priority Associated Diagnoses Date/Ti me DECOMPRESSION LUMBAR LAMINECTOMY Lumbar pain Spinal stenosis of lumbar region, unspecified whether neurogenic claudication present 07/21/2024 7:30 AM CDT Medical Devices Implanted Type Area Intellectual Property Manager Device Identifier Shelf Expiration Date Model / Serial / Lot [employer] Ringloc+ 50mm Limit Hole Shell Hip Acetabular - [id number] Implanted:Qty: 1 on 08/19/2017 by Ferdinand Ascencio MD at [facility] Right: Hip [employer] [id number] 12/24/2026 [id number] / / [id number] [employer] Ringloc 36mm High Wall Liner Hip +3mm 23 Acetabular E-Poly - [id number] Implanted:Qty: 1 on 08/19/2017 by Ferdinand Acsencio MD at [facility] Right: Hip [employer] [id number] 06/25/2022 [id number] / / [id number] [employer] 6.5mm 45mm Low Profile Screw Hip Acetabular Cancellous Dome Bone - [id number] Implanted:Qty: 1 on 08/19/2017 by Ferdinand Ascencio MD at [facility] Right: Hip [employer] 08/02/2026 [id number] / / [id number] [employer] Echo Bi-Metric 12mm 140mm Noncollar Full Proximal Profile Press - [id number] Implanted:Qty: 1 on 08/19/2017 by Ferdinand Ascencio MD at [facility] Right: Hip [employer] [id number] 10/30/2025 [id number] / / [id number] [employer] G7 Type 1 Sleeve Hip Standard Offset Taper Centering Titanium - [id number] Implanted:Qty: 1 on 08/19/2017 by Ferdinand Ascencio MD at [facility] Right: Hip [employer] [id number] 11/28/2026 [id number] / / [id number] Head Femoral G7 Biolox Delta Biolox Option Od36 Mm Hip - [id number] Implanted:Qty: 1 on 08/19/2017 by Ferdinand Ascencio MD at [facility] Right: Hip [employer] [id number] 09/11/2026 [id number] / / [id number] Procedures Procedure Name Priority Date/Time Associated Diagnosis [...] Read Routine (OP Routine) 04/27/2024 11:10 AM INSTRUCTOR BUSINESS EDUCATION Spinal stenosis of lumbar region, unspecified whether neurogenic claudication present Lumbar pain XR SCOLIOSIS AP LAT Schedule Routine, Read Routine (OP Routine) 04/27/2024 11:10 AM INSTRUCTOR BUSINESS EDUCATION Spinal stenosis of lumbar region, unspecified whether neurogenic claudication present Lumbar pain DEXA AXIAL SKELETON BONE DENSITY 1 OR MORE SITES Schedule Routine, Read Routine (OP Routine) 01/10/2020 10:11 AM INSTRUCTOR BUSINESS EDUCATION Osteoporosis screening from Last 3 Months or [...] of Race in Diagnosing Kidney Disease, JASN 202). The CKD-EPI equation should not be used for patients with unstable renal function and has not been validated in children and those over 70. Current interpretive data was last reviewed 2021. Blood 07/07/2024 8:02 AM CDT 07/07/2024 8:11 AM CDT Ranulfo Morton MD LAB BLOOD ORDERABLES Fin al Result ARACELI [address] [facility] Department [place] [address] * Differential, auto (07/07/2024 8:02 AM CDT) Neutrophil abs 2.61 1.50 - 6.50 K/cumm Imm gran abs 0.01 0.00 - 0.10 K/cumm [facility] Lymphocyte abs 1.72 0.80 - 3.30 K/cumm [facility] Monocyte abs 0.55 0.20 - 0.80 K/cumm [facility] Eosinophil abs 0.18 0.00 - 0.50 K/cumm [facility] Basophil abs 0.04 0.00 - 0.10 K/cumm [facility] Neutrophil pct 51.0 % [facility] Comment: Interpretive Data Percent cell count reference ranges are not reported, since discordance with absolute values may lead to misinterpretation of CBC data. Current Interpretive Data was last revised on 2017. Imm gran pct 0.2 % [facility] Comment: Interpretive Data Percent cell count reference ranges are not reported, since discordance with absolute values may lead to misinterpretation of CBC data. Current Interpretive Data was last revised on 2017. Lymphocyte pct 33.7 % [facility] Comment: Interpretive Data Percent cell count reference ranges are not reported, since discordance with absolute values may lead to misinterpretation of CBC data. Current Interpretive Data was last revised on 2017. Monocyte pct 10.8 % [facility] Comment: Interpretive Data Percent cell count reference ranges are not reported, since discordance with absolute values may lead to misinterpretation of CBC data. Current Interpretive Data was last revised on 2017. Eosinophil pct 3.5 % [facility] Comment: Interpretive Data Percent cell count reference ranges are not reported, since discordance with absolute values may lead to misinterpretation of CBC data. Current Interpretive Data was last revised on 2017. Basophil pct 0.8 % [facility] Comment: Interpretive Data Percent cell count reference ranges are not reported, since discordance with absolute values may lead to misinterpretation of CBC data. Current Interpretive Data was last revised on 2017. Blood 07/07/2024 8:02 AM CDT 07/07/2024 8:11 AM CDT Ranulfo Morton MD LAB BLOOD ORDERABLES Fin al Result Performing Organization Address [facility] de Phone Number ARACELI [address] [address] * Infection Prevention MRSA Only (Staphylococcus aureus) PCR Nasal (07/07/2024 8:02 AM CDT) [facility] PCR Scrn, Methicillin resistant Staphylococcus aureus (MRSA) Not Detected Not Detected Comment: Interpretive Data Testing performed using Nucleic Acid Amplification with the [employer] Xpert MRSA NxG Assay. This assay detects target DNA from mecA, mecC and the SCCmec insertion site of Staphylococcus aureus using Real-Time PCR and has been cleared by the FDA. Performance characteristics have been verified by the [facility]. Current Interpretive Data was last revised on 2022 Nasal 07/07/2024 8:02 AM CDT 07/07/2024 8:13 AM CDT Ranulfo Morton MD LAB MICROBIOLOGY - GENER AL ORDERABLES Final Result Performing Organization Address [facility] de Phone Number ARACELI [address] [address] * CBC with auto differential (07/07/2024 8:02 AM CDT) [facility] WBC 5.11 3.80 - 9.90 K/cumm Hgb 12.6 11.9 - 15.5 g/dL [facility] Hct 38.1 35.6 - 45.5 % [facility] Plt 321 150 - 400 K/cumm [facility] MPV 9.5 9.1 - 12.3 fL [facility] RBC 4.13 3.90 - 5.20 M/cumm [facility] MCV 92.3 81.3 - 96.4 fL [facility] MCH 30.5 27.1 - 33.3 pg [facility] MCHC 33.1 32.3 - 35.7 g/dL [facility] RDW CV 13.0 11.1 - 14.9 % [facility] RDW SD 43.9 35.7 - 48.1 fL [facility] NRBC abs 0.00 0.00 - 0.01 K/cumm [facility] Blood 07/07/2024 8:02 AM CDT 07/07/2024 8:11 AM CDT Ranulfo Morton MD LAB BLOOD ORDERABLES Fin al Result Performing Organization Address [facility] de Phone Number [address] [address] * ABO/Rh (07/07/2024 8:02 AM CDT) ABO/Rh A Positive Blood 07/07/2024 8:02 AM CDT 07/07/2024 8:13 AM CDT Narrative [facility] - 07/07/2024 8:50 AM CDT Is this test being ordered in advance for a procedure?->Yes Expected date of procedure:->07/21/24 Has the patient been transfused in the past 3 months?->No Has the patient been in the past 3 months?->No Ranulfo Morton MD LAB BLOOD BANK TEST ORDE RABLES Final Result Performing Organization Address [facility] de Phone Number [address] [address] * aPTT (07/07/2024 8:02 AM CDT) aPTT 27 22 - 37 sec Comment: Interpretive data aPTT test has not been evaluated for monitoring heparin therapy. The anti-Xa is the preferred test. Current interpretive data was last revised on 2019. Blood 07/07/2024 8:02 AM CDT 07/07/2024 8:11 AM CDT Ranulfo Morton MD LAB BLOOD ORDERABLES Fin al Result Performing Organization Address [facility] de Phone Number [place] [id number] [place] [address] * Protime-INR (07/07/2024 8:02 AM CDT) PT 13.4 12.0 - 14.6 sec INR 1.0 0.9 - 1.2 [facility] Comment: Ref Range High Interpretive data Oral [...] ORDERABLES Fin al Result Performing Organization Address [facility] de Phone Number [address] [address] * Antibody screen (07/07/2024 8:02 AM CDT) [...] ORDE RABLES Final Result Performing Organization Address [facility] Co de Phone Number [place] [id number] [facility] [place] [address] * (ABNORMAL) Comprehensive metabolic panel (07/07/2024 8:02 AM CDT) Pathologist [facility] Sodium 133(L) 135 - 145 mmol/L Potassium, pl 4.0 3.3 - 4.9 mmol/L [facility] Chloride 100 97 - 110 mmol/L [facility] CO2 25 22 - 32 mmol/L [facility] Anion gap 8 2 - 15 mmol/L [facility] BUN 16 6 - 25 mg/dL [facility] Creatinine 0.47(L) 0.60 - 1.10 mg/dL [facility] Glucose 105 70 - 199 mg/dL [facility] Comment: Interpretive Data Fasting glucose >/= [...] 2022. Calcium 11.4(H) 8.5 - 10.3 mg/dL [facility] Bilirubin, total 0.3 0.1 - 1.2 mg/dL [facility] Protein, pl 7.4 6.5 - 8.5 g/dL [facility] Albumin 4.5 3.5 - 5.0 g/dL [facility] Alk phos 80 40 - 130 Units/L [facility] ALT 18 7 - 45 Units/L [facility] AST 21 10 - 45 Units/L [facility] Blood 07/07/2024 8:02 AM CDT 07/07/2024 8:11 AM CDT us Ranulfo Morton MD LAB BLOOD ORDERABLES Fin al Result ARACELI [address] [facility] Department [place] [address] * ECG 12 lead (07/07/2024 7:51 AM CDT) [facility] Ventricular Rate EKG/Min 66 BPM [facility] Atrial Rate 66 BPM [facility] MO-Interval (MSEC) 132 ms [facility] QRS-Interval (MSEC) 86 ms [facility] QT-Interval (MSEC) 374 ms [facility] QTc 392 ms [facility] P [place] 75 degrees [facility] R [place] 51 degrees [facility] T [place] 60 degrees [facility] Diagnosis Normal sinus rhythm Normal ECG No previous ECGs available Confirmed by JEREMY MERCADO M.D. ([id number]) on 07/07/2024 3:31:17 PM [facility] 07/07/2024 7:51 AM CDT 07/07/2024 3:31 PM CDT Ranulfo Morton MD ECG ORDERABLES Final Re sult Performing Organization Address [facility] de Phone Number [facility] [place] * MSK MR Outside Reference (05/16/2024 12:00 AM CDT) Narrative [email or web address] - 05/18/2024 1:20 PM CDT This order has been auto-finalized and does not contain a result. us Provider Transcribed Order IMG MRI PROCEDURES Fi nal Result Performing Organization Address [facility] de Phone Number [email or web address] * XR Spine Lumbar Ap Lat Flex Ext min 4 Views (04/27/2024 11:10 AM INSTRUCTOR BUSINESS EDUCATION) Anatomical Region Laterality Modality L-spine N/A Computed Radiogr aphy 04/28/2024 7:32 AM INSTRUCTOR BUSINESS EDUCATION Narrative 04/28/2024 7:35 AM INSTRUCTOR BUSINESS EDUCATION EXAM DESCRIPTION: XR SCOLIOSIS AP AND LATERAL; [...] by Edu Pearce M.D. T: Report ID: [id number] Reading Location: [place] [address] Procedure Note Edu Pearce MD - 04/28/2024 [...] by Edu Pearce M.D. T: Report ID: [id number] Reading Location: [place] [address] Vinod DAVIDSON IMG XR PROCEDURES Final Re sult * XR Scoliosis 2 or 3 Views (04/27/2024 11:10 AM INSTRUCTOR BUSINESS EDUCATION) Anatomical Region Laterality Modality Spine N/A Computed Radiogr aphy 04/28/2024 7:32 AM INSTRUCTOR BUSINESS EDUCATION Narrative 04/28/2024 7:35 AM INSTRUCTOR BUSINESS EDUCATION EXAM DESCRIPTION: XR SCOLIOSIS AP AND LATERAL; [...] by Edu Pearce M.D. T: Report ID: [id number] Reading Location: [place] [address] Procedure Note Edu Pearce MD - 04/28/2024 [...] by Edu Pearce M.D. T: Report ID: [id number] Reading Location: [id number] Vinod DAVIDSON IMG XR PROCEDURES Final Re sult * Dexa Axial Skeleton Bone Density 1 or 2 Site (01/10/2020 10:11 AM INSTRUCTOR BUSINESS EDUCATION) Anatomical Region Laterality Modality Body N/A Radiographic Yaritza ging Narrative 01/10/2020 10:18 AM INSTRUCTOR BUSINESS EDUCATION Patient Name: Raffy Teran Date of : 1960 Date of scan: 01/10/2020 Bone mineral density was performed on a [employer] Discovery Densitometer. Machine Cross-calibration and Precision studies [...] by the International Society of Clinical Densitometry. [id number] Chelo Colin MD IMG DXA PROCEDURES Final Resu lt from Last 3 Months or Most Recently Relevant to Health Maintenance Insurance UHC MEDICARE [facility] MEDICARE Address: [facility] [address] [place] [address] [facility] [id number] [facility] AETNA SIGNATURE UHC MEDICARE [facility] MEDICARE Address: [address] [address] [place] [address] Advance Directives For more information, please contact: [phone] Documents on File Type Date Recorded Patient Asset Card Clerk Expl anation ADVANCE DIRECTIVE 07/07/2024 9:37 AM Power of Dairy Science Teacher-Medical * Full Code (Latest Code Status on File) Date Activated Date Inactivated Comments 08/24/2017 11:03 PM * Full Code Date Activated Date Inactivated Comments 08/24/2017 7:07 AM 08/24/2017 11:03 PM * Full Code Date Activated Date Inactivated Comments 08/19/2017 11:18 AM 08/21/2017 3:16 PM Care Teams Global Sales Director Relationship Specialty Start Date End Date Edu Morelos MD [address] [place] [address] PCP - General Emergency Medicine 04/29/24 Guzman Kam DO [address] [place] [address] Bowling Floor Manager Cardiology 06/16/24
== END 2024-07-08 12:39 | disposition home or self-care (01) ==
LOC: ANHCARD 12:39
PROVIDERS: PCP Emergency Medicine; Visit Provider Internal Medicine Cardiovascular Disease
DX: R06.09 Other forms of dyspnea (principal); I36.1 Nonrheumatic tricuspid (valve) insufficiency; I34.0 Nonrheumatic mitral (valve) insufficiency
CPT/HCPCS: 93306

== ENCOUNTER 2024-07-29 15:07 | Emergency (ER) | payer MEDICARE, SELFPAY ==
--- NOTE | ~2024-07-29 | XR_ITS ---
XR hand RT min 3V Ordering provider: Sandie El NP History: . injury . Comparison: 06/11/2018 FINDINGS: BONES: No acute fracture or dislocation. Small bony fragment in the tip of the distal phalanx of the middle finger unchanged from previous examination. Cystic changes seen in the hamate bone. JOINT SPACES: Narrowing of the distal interphalangeal joints. Osteoarthritic changes of the first car pometacarpal joint. SOFT TISSUES: Normal. IMPRESSION: No acute osseous abnormality right hand. Polyarticular osteoarthritic changes. Reviewed, dictated and finalized at location A.
[2024-07-29 15:19] VITALS: BP 95/69; PULSE 92; RESP 20; TEMP 36.7; O2SAT 100
--- NOTE | 2024-07-29 15:48 | ED_ITS ---
HPI - Extremity Injury (Upper) General Chief Complaint: Extremity Injury, Upper Stated Complaint: Right Hand Pain Time Seen by Provider: 07/29/24 15:50 Source: patient and RN notes reviewed Mode of arrival: ambulatory Limitations: no limitations History of Present Illness HPI narrative: 64-year-old female presents with concern for right hand pain. She reports swelling of the dorsal hand. Reports she hit the hand on hospital bed rail on Thursday. She denies intervention. Denies decreased strength, sensation, range of motion in the hand or digits. MD complaint: injury to: right and hand Related Data Home Medications ?Medication ?Instructions ?Recorded ?Confirmed ?Last Taken ?Type methocarbamol 750 mg tablet 750 mg PO DAILY 10/16/23 06/14/24 Unknown History Allergies Allergy/AdvReac Type Severity Reaction Status Date / Time amoxicillin Allergy Mild Itching Verified 07/29/24 15:57 tramadol Allergy Mild Itching Verified 07/29/24 15:57 Review of Systems Review of Systems: CONSTITUTIONAL: Denies malaise, chills, sweats, or fever. SKIN: Denies rash or itching, open skin, laceration, abrasion, redness, warmth MUSCULOSKELETAL: Reports right hand pain and swelling NEUROLOGIC: Denies numbness, weakness All systems reviewed & are unremarkable except as noted in HPI and below PMFSH Past Medical History Medical History Kidney mass Trigger finger of right hand Respiratory tract congestion with cough Chronic sinusitis Sinus congestion HLD (hyperlipidemia) Depression Cervical spondylosis Urinary incontinence Surgical History Surgical History History of right hip replacement History of cholecystectomy Family History Family History Mother Hypertension Cerebrovascular accident Family history of anemia Family history of hyperthyroidism Mother Patient's mother is , Onset Age: 85 Father Patient's father is , Onset Age: 72 Social History Social History Smoking status: Never smoker Smoking end date: 03/09/99 Alcohol intake: current Substance use: never Substance use type: does not use Do You Feel Safe in your Home?: Yes Lack of Transportation: No Lack of Food: Never True Current Housing: Decline to Answer Concerned About Future Housing: Decline to Answer Difficulty Paying Gas/Electric Bills: Decline to Answer Difficulty Paying for Meds: Decline to Answer Currently Unemployed: Decline to Answer Education: Decline to Answer Difficulty w/ Childcare or Family Care: Decline to Answer Gender identity (if verbalized by the patient): Female Comments At time of signature, agree with nursing past medical, surgical, social and family history. There is no relevant family history pertinent to the presenting complaint Exam Narrative: GENERAL: Well-appearing, well-nourished, and in no acute distress. HEAD: Normocephalic EYES: PERRLA, conjunctivae clear NECK: Supple. CHEST: Speaks in full sentences. No respiratory distress. HEART: Regular rate and rhythm. Normal and equal peripheral pulses. EXTREMITIES: Right hand and digits of hand have normal strength and sensation. 5/5 strength with digit flexion, extension. Range of motion normal. No clubbing, cyanosis. Dorsal hand Edema noted. No tenderness. Skin intact. Normal digital cascade with flexion of fingers, median, ulnar and radial nerve intact. Normal sensation of each side of finger. No scissoring. Normal thumb opposition. Good capillary refill and radial pulse. Distal capillary refill less than 3 seconds. Patient is right/left hand dominant SKIN: Warn, dry, intact, pink. No rash NEURO: Alert and oriented x3. PSYCH: Normal mood and affect Course Course Emergency Course: Patient is aware of diagnosis, understands and agrees to treatment plan. Anticipatory guidance given. Patient agrees to follow-up as directed and is aware of reasons to seek care at the emergency department. Portions of this record may have been created with voice recognition software Level of Care: Express Care Visit Vital Signs Vital signs: Vital Signs Temperature 98.1 F 07/29/24 15:19 Pulse Rate 92 07/29/24 15:19 Respiratory Rate 20 07/29/24 15:19 Blood Pressure 95/69 L 07/29/24 15:19 Pulse Oximetry 100 07/29/24 15:19 Oxygen Delivery Room Air 07/29/24 15:19 Temperature 98.1 F 07/29/24 15:19 Pulse Rate 92 07/29/24 15:19 Respiratory Rate 20 07/29/24 15:19 Blood Pressure 95/69 L 07/29/24 15:19 Pulse Oximetry 100 07/29/24 15:19 Oxygen Delivery Room Air 07/29/24 15:19 Reviewed. MDM - Extremity Injury (Upper) MDM Narrative Medical decision making narrative: Patients injury and pain is consistent with musculoskeletal etiology. No signs of neurological or vascular compromise on exam. Compartments and tissues are soft without signs of compartment syndrome. Pain is felt appropriate for further evaluation on an outpatient basis. Imaging Data My impression: Images reviewed, interpreted by radiologist, agree, see report. Radiologist's impression: Comparison: 06/11/2018 FINDINGS: BONES: No acute fracture or dislocation. Small bony fragment in the tip of the distal phalanx of the middle finger unchanged from previous examination. Cystic changes seen in the hamate bone. JOINT SPACES: Narrowing of the distal interphalangeal joints. Osteoarthritic changes of the first carpometacarpal joint. SOFT TISSUES: Normal. IMPRESSION: No acute osseous abnormality right hand. Polyarticular osteoarthritic changes. Critical Care Time Critical Care Time Critical Care Time: No Discharge Plan Discharge Clinical Impression: Contusion of hand Patient Disposition: Home Condition: Stable Instructions: Contusion in Adults (ED) Additional Instructions: Avoid activities that cause pain until the pain subsides. Ice to the area 20-30 minutes 4-6 times a day Elevate above heart Elastic wrap as directed for comfort for the next 5-7 days Tylenol for pain Follow up with your primary care provider if the condition is not improving within 1 week. If the condition worsens with numbness, tingling, decrease sensation with weakness seek treatment in the emergency room immediately. Patient Language: [place] Prescriptions: No Action methocarbamol 750 mg tablet 750 mg PO DAILY fluticasone propionate [Flonase Allergy Relief] 50 mcg/actuation spray,suspension 1 spray intranasal BID Qty: 48 0RF Rx Instructions: administer into each nostril ibuprofen 800 mg tablet 800 mg PO TID PRN (Reason: pain) 7 Days Qty: 21 0RF acetaminophen 500 mg tablet 1,000 mg PO TID PRN (Reason: pranav) 7 Days Qty: 42 0RF methocarbamol 750 mg tablet 1,500 mg PO TID Qty: 35 0RF alendronate 70 mg tablet 70 mg PO WEEKLY Qty: 12 2RF magnesium oxide 500 mg magnesium tablet 500 mg PO .COMPLEX Qty: 90 2RF Rx Instructions: 500 mg orally one hour before bedtime; cholecalciferol (vitamin D3) 50 mcg (2,000 unit) capsule 100 mcg PO DAILY Qty: 180 2RF sertraline 50 mg tablet See Rx Instructions .ROUTE .COMPLEX Qty: 90 2RF Dose Instruction: TAKE 1 TABLET BY MOUTH EVERY DAY Rx Instructions: TAKE 1 TABLET BY MOUTH EVERY DAY Follow-up/Referrals: Edu Morelos MD [Primary Care Provider] - Time of Disposition: 16:13
== END 2024-07-29 16:23 | disposition home or self-care (01) ==
PROVIDERS: Emergency Provider Nurse Practitioner; PCP Emergency Medicine
DX: S60.221A Contusion of right hand, initial encounter (principal); W22.8XXA Striking against or struck by other objects, initial encounter; E78.5 Hyperlipidemia, unspecified; Z96.641 Presence of right artificial hip joint; Z87.891 Personal history of nicotine dependence
CPT/HCPCS: 73130; 99213; G0463

== ENCOUNTER 2024-09-07 15:04 | Emergency (ER) | payer MEDICARE, SELFPAY ==
--- NOTE | 2024-09-07 15:06 | ED_ITS ---
HPI - Abdominal Pain General Chief Complaint: Abdominal Pain Stated Complaint: Constipation Time Seen by Provider: 09/07/24 15:05 Source: patient Mode of arrival: ambulatory Limitations: no limitations History of Present Illness HPI narrative: Amita is a 64-year-old female patient presenting to the clinic today with complaints of possible constipation. She reports she did not have a bowel movement last week and finally 2 days ago she finally had a bowel movement in the was a small hard amount. She is passing gas. Endorses nausea/GERD symptoms without vomiting. No blood in her stool. Abdominal pain or rectal pain. States she is feeling bloated. She has tried eating prunes and corn. Related Data Allergies Allergy/AdvReac Type Severity Reaction Status Date / Time amoxicillin Allergy Mild Itching Verified 09/07/24 15:19 tramadol Allergy Mild Itching Verified 09/07/24 15:19 Review of Systems Review of Systems: Pertinent positives per HPI. Patient denies any fever, chills, rash, headache, visual changes, dizziness, cough, runny nose, sore throat, shortness of breath, chest pain, palpitations, vomiting, diarrhea, or any urinary issues. [facility] Past Medical History Medical History Chronic sinusitis Kidney mass Trigger finger of right hand Respiratory tract congestion with cough Sinus congestion HLD (hyperlipidemia) Depression Cervical spondylosis Urinary incontinence Surgical History Surgical History History of back surgery History of right hip replacement History of cholecystectomy Family History Family History Mother Hypertension Cerebrovascular accident Family history of anemia Family history of hyperthyroidism Mother Patient's mother is , Onset Age: 85 Father Patient's father is , Onset Age: 72 Social History Social History Smoking status: Never smoker Smoking end date: 03/09/99 Alcohol intake: current Substance use: never Substance use type: does not use Do You Feel Safe in your Home?: Yes Lack of Transportation: No Lack of Food: Never True Current Housing: Decline to Answer Concerned About Future Housing: Decline to Answer Difficulty Paying Gas/Electric Bills: Decline to Answer Difficulty Paying for Meds: Decline to Answer Currently Unemployed: Decline to Answer Education: Decline to Answer Difficulty w/ Childcare or Family Care: Decline to Answer Gender identity (if verbalized by the patient): Female Comments At the time of my signature, I reviewed and agree with the nursing past medical, surgical, social, and family history. There is no relevant family history pertinent to the patient complaint. Exam Narrative: General: Well-developed, well nourished, in no apparent distress. Head: Normocephalic, atraumatic. Cardio: Regular rate and rhythm, s1 and s2 normal, no murmur appreciated. Resp: Clear to auscultation bilaterally, no rhonchi, rales, wheezing or rubs. Abdomen: Soft, pliable, bowel sounds present in all quadrants, non-tender to palpation, no organomegly, no CVAT tenderness. Course Course Emergency Course: Portions of this record may have been created with voice recognition software. Level of Care: Express Care Visit Vital Signs Vital signs: Vital Signs Temperature 36.4 C 09/07/24 15:20 Pulse Rate 88 09/07/24 15:20 Respiratory Rate 16 09/07/24 15:20 Blood Pressure 119/72 09/07/24 15:20 Pulse Oximetry 98 09/07/24 15:20 Oxygen Delivery Room Air 09/07/24 15:20 Temperature 36.4 C 09/07/24 15:20 Pulse Rate 88 09/07/24 15:20 Respiratory Rate 16 09/07/24 15:20 Blood Pressure 119/72 09/07/24 15:20 Pulse Oximetry 98 09/07/24 15:20 Oxygen Delivery Room Air 09/07/24 15:20 Vital signs reviewed MDM - Abdominal Pain MDM Narrative Medical decision making narrative: At the time of visit patient is resting comfortably on the exam table. Patient appears to be nontoxic. Plan: I suspect patient has constipation. Patient is having bloating with passing hard stools 2 days ago. Is currently passing gas. Experiencing nausea and GERD symptoms without vomiting. Prescription for MiraLax, bisacodyl, and magnesium citrate was sent to the pharmacy. Supportive measures were discussed with the patient and they voiced understanding discharge instructions and agrees to treatment plan. Return precautions reviewed Differential Diagnosis Differential diagnosis: Likely abdominal pain, acute appendicitis, calculus of kidney, constipation, diverticulitis, endometriosis, gastroenteritis, pancreatitis and small bowel obstruction Discharge Plan Discharge Clinical Impression: Abdominal bloating Constipation Qualifiers: Constipation type: unspecified constipation type Qualified Code(s): K59.00 - Constipation, unspecified Patient Disposition: Home Condition: Stable Instructions: Antibiotic Form, Constipation (ED), Gas and Bloating (ED) Additional Instructions: Take MiraLax daily- 1 scoop in 8 oz of water or juice Drink 1/2 bottle of magnesium citrate and take 2 bisacodyl tablets. If not results in one hour drink the result of the magnesium citrate. Increase fluids and stay well hydrated Increase fiber in your diet Avoid eating spicy or fatty foods, chocolate, or drinking caffeine. Avoid foods that cause you to feel bloated. Stay upright for at least 30 minutes after eating. May use tums for immediate relief of acid reflux symptoms Follow up with your PCP in 3-5 days if symptoms persist. Patient Language: Slovak Prescriptions: New polyethylene glycol 3350 [Miralax] 17 gram/dose powder 17 g PO DAILY 10 Days Qty: 170 0RF bisacodyl 5 mg tablet 10 mg PO ONCE 1 Days Qty: 2 0RF magnesium citrate [Citrate of Magnesia] Solution 300 ml PO DAILY PRN (Reason: constipation) 1 Days Qty: 296 0RF Rx Instructions: Drink half bottle 150ml and take 2 bisacodyl tabs. If no results in 1 hour drink remaining 150ml No Action triamcinolone acetonide 0.1 % ointment 1 applic topical TID Qty: 80 0RF alendronate 70 mg tablet 70 mg PO WEEKLY Qty: 12 2RF magnesium oxide 500 mg magnesium tablet 500 mg PO .COMPLEX Qty: 90 2RF Rx Instructions: 500 mg orally one hour before bedtime; cholecalciferol (vitamin D3) 50 mcg (2,000 unit) capsule 100 mcg PO DAILY Qty: 180 2RF sertraline 50 mg tablet See Rx Instructions .ROUTE .COMPLEX Qty: 90 2RF Dose Instruction: TAKE 1 TABLET BY MOUTH EVERY DAY Rx Instructions: TAKE 1 TABLET BY MOUTH EVERY DAY fluticasone propionate [Flonase Allergy Relief] 50 mcg/actuation spray,suspension 1 spray intranasal BID Qty: 48 0RF Rx Instructions: administer into each nostril epinephrine [EpiPen] 0.3 mg/0.3 mL auto-injector 0.3 mg IM ONCE Qty: 1 0RF Rx Instructions: as a single dose; may repeat once Follow-up/Referrals: Edu Morelos MD [Primary Care Provider] - Time of Disposition: 15:31 Quality NIHSS Nursing Documentation ED NIHSS nursing documentation: reviewed/agree
[2024-09-07 15:20] VITALS: BP 119/72; PULSE 88; RESP 16; TEMP 36.4; O2SAT 98
== END 2024-09-07 15:36 | disposition home or self-care (01) ==
PROVIDERS: Emergency Provider Nurse Practitioner Family; PCP Emergency Medicine
DX: R14.0 Abdominal distension (gaseous) (principal); K59.00 Constipation, unspecified; Z87.891 Personal history of nicotine dependence; E78.5 Hyperlipidemia, unspecified; M47.812 Spondylosis without myelopathy or radiculopathy, cervical region; Z96.641 Presence of right artificial hip joint
CPT/HCPCS: 99213; G0463